=== PATIENT | female | born 1950 | race Caucasian/White ===

== ENCOUNTER 2019-12-10 22:59 | Emergency (ER) | payer MEDICARE, SELFPAY ==
[2019-12-10 23:01] VITALS: BP 157/79; PULSE 117; RESP 22; TEMP 39.4; O2SAT 90; BMI 43.0
--- NOTE | 2019-12-10 23:03 | XR_ITS ---
WS: [id number] PORTABLE CHEST HISTORY: weakness COMPARISON: None available. Mild elevation of the RIGHT hemidiaphragm. No pneumonia. Vasculature is normal. No pleural effusion o r pneumothorax. Cardiac size: Mildly enlarged cardiac silhouette. Mediastinum/Aorta: Normal mediastinum. No osseous abnormality seen. XR/XR chest 1V portable [id number] IMPRESSION: 1. No pneumonia. 2. Mild cardiomegaly.
--- NOTE | 2019-12-10 23:19 | ED_ITS ---
Documented by User: SHELBY Rees 12/11/19 03:39 HPI - Fever General: Chief Complaint: Fever Stated Complaint: WEAKNESS Time Seen by Provider: 12/10/19 23:03 History of Present Illness: HPI Narrative: Patient is a 68-year-old female comes to the ED with a fever, weakness, nausea and vomiting. Patient has a past medical history of asthma, hypertension and diabetes type 2. Patient says approximately 4 days ago she started developing a fever. She has been taking Tylenol at home to help with fevers. Patient reports overnight nonproductive cough as well. She says that she is also had some nausea and vomiting for the past couple days and has not been able to eat much food. She says she is trying to drink some water over the past couple days but has a hard time keeping that down as well. She is also complaining of having some weakness for the past couple days. She describes feeling weak every time she has to get up and do any activity. Endorses having diarrhea yesterday but it has since resolved. Denies any chest pain, shortness of breath, abdominal pain, constipation, blood in the stool, dysuria or hematuria. Patient says she is not aware of any sick contacts recently. She also says she does not use oxygen at home. Associated symptoms: Reports nausea and vomiting; Deny abdominal pain, flank pain, chills, chest pain, diarrhea, dysuria, headache(s) or nasal congestion Review of Systems Const: Reports: fever(s), change in appetite (decrease) and fatigue; Denies: chills Eyes: Denies: change in vision or eye discomfort ENMT: Denies: throat pain, odynophagia, nasal discharge or nasal congestion Card: Denies: chest pain, palpitations, edema, swelling of feet/ankles, dyspnea on exertion or orthopnea Resp: Reports: non-productive cough; Denies: dyspnea or productive cough GI: Reports: nausea and vomiting; Denies: abdominal pain, diarrhea, constipation or hematochezia : Denies: flank pain, dysuria or hematuria Musc: Denies: neck pain, back pain or extremity swelling Skin/Breast: Denies: rash or new lesions Neuro: Denies: headache(s), numbness in extremities or weakness in extremities Physical Exam Const: COMMON NORMALS: no acute distress, patient oriented x3 and alert GENERAL APPEARANCE: cooperative and comfortable HENMT: COMMON NORMALS: normocephalic HEAD & SCALP: normocephalic MOUTH: moist mucous membranes abnormal (mild dryness) THROAT: posterior oropharynx normal and uvula midline Eye: COMMON NORMALS: Equal, round and reactive pupils present PUPIL: Yes Equal, round and reactive pupils present Neck/C-Spine: COMMON NORMALS: supple GENERAL: Yes normal visual inspection Resp: COMMON NORMALS: normal respiratory effort, No retractions and No use of accessory muscles EFFORT & INSPECTION: Yes able to speak in complete sentences and Yes Actively coughing moist AUSCULTATION: crackles Laterality: bilateral (At the bases) Cardio: COMMON NORMALS: regular rhythm, S1 normal heart sound present, S2 normal heart sound present, No gallops present (Cardio), No clicks present (Cardio), No murmurs present (Cardio) and Peripheral pulses 2+ throughout RATE: tachycardic RHYTHM: regular rhythm HEART SOUNDS: S1 normal heart sound present and S2 normal heart sound present PERIPHERAL PULSES: Peripheral pulses 2+ throughout GI: COMMON NORMALS: Normal to inspection, nondistended, normoactive bowel sounds present, Soft to palpation, non-tender and no masses PALPATION: Yes Soft to palpation : COMMON NORMALS: Yes no CVA tenderness BLADDER/KIDNEY EXAM: Yes no CVA tenderness Back/Pelvis: COMMON NORMALS: no CVA tenderness Extremity: COMMON NORMALS: normal to inspection and no pedal edema Neuro: COMMON NORMALS: patient oriented x3, CN's II-XII intact bilaterally, moves all extremities, no focal motor deficits and no sensory deficits noted SENSORIUM/ORIENTATION: Yes alert SENSORY EXAM: Yes extremities (intact) MOTOR EXAM: 5/5 motor strength present throughout Skin: GENERAL SKIN EXAM: dry skin Course Vital Signs: Vital signs: Vital Signs Temperature 102.9 F H 12/10/19 23:01 Pulse Rate 84 12/11/19 04:26 Respiratory Rate 16 12/11/19 04:26 Blood Pressure 109/57 12/11/19 04:26 Pulse Oximetry 94 12/11/19 04:26 I went in and checked patient's temperature around 1:45 AM. Oral temp was 99 ?F. MDM - Fever MDM Narrative: Medical decision making narrative: Patient is a 68-year-old female comes to the ED with fever, cough, nausea/vomiting and generalized weakness. Patient has a past medical history of diabetes, asthma and hypertension. Patient's temperature was 102.9 upon arrival to the ED. She was given some IV fluids, Zofran and 600 mg of Motrin. Her symptoms improved and her temperature went down to 99 ?F. White blood cell count 12.9. The rest of CBC, CMP and UA were unremarkable. Rapid COVID was negative. EKG showed sinus rhythm with no ST segment elevation or depression seen and baseline troponin was 10. Lactate 1.0 , BNP 194. Chest x-ray showed no acute findings. Patient was stating in the low 90s O2 RA, so she was put on 2 L of oxygen nasal cannula. Patient does not use oxygen at home. I talked with Dr. Molina about patient case and CT of the chest was ordered. Dr. Molina will then be taking over patient case and will be handling discharge plan pending CT chest results. Patient was signed out to Dr. Molina. Lab Data: Attestation: I reviewed the patient's lab results. Labs: Lab Results 12/11/19 12/11/19 12/11/19 Range/Units 00:14 00:30 00:30 WBC 12.9 H (4.0-10.0) 10^3/ uL RBC 4.46 (4.1-5.3) 10^6/u L Hgb 13.1 (11.5-15.3) g/dL Hct 40.3 (37.0-47.0) % MCV 90.4 (81-99) fL MCH 29.4 (28.0-34.0) pg MCHC 32.5 (30.0-36.0) g/dL RDW 13.3 (12.1-15.1) % Plt Count 290 (130-400) 10^3/c mm MPV 10.4 (7.4-10.4) fL Neut % (Auto) 63.0 % Lymph % (Auto) 20.4 % [place] % (Auto) 13.9 % Eos % (Auto) 0.5 % Baso % (Auto) 1.1 % Neut # (Auto) 8.12 H (1.8-7.7) 10^3/u L Lymph # (Auto) 2.6 (0.8-4.8) 10^3/u L [place] # (Auto) 1.8 H (0.2-0.9) 10^3/u L Eos # (Auto) 0.1 (0.0-0.8) 10^3/u L Baso # (Auto) 0.1 (0.0-0.1) 10^3/u L Nucleated RBC % (a uto) 0 % Nucleated RBCs # 0.0 /100WBC Fibrinogen (174-498) mg/dL Sodium 140 (136-145) mmol/L Potassium 3.5 (3.5-5.1) mmol/L Chloride 99 (98-107) mmol/L Carbon Dioxide 28 (22-29) mmol/L Anion Gap 16.5 (5-19) BUN 11 (8-23) mg/dL Creatinine 0.9 (0.5-0.9) mg/dL GFR Calculation 61.9 L (90-130) mL/min Glucose 188 H (65-115) mg/dL Calculated Osmolal ity 291 (285-295) mOsm/k g Lactate (0.5-2.2) mmol/L Calcium 8.6 (8.5-10.5) mg/dL Ferritin 150 (15-150) ng/mL Total Bilirubin 0.3 (0.15-1.2) mg/dL AST 16 (0-32) U/L ALT 21 (0-33) U/L Alkaline Phosphata se 138 H (35-105) IU/L Troponin T Baselin e (0-10) ng/L Troponin T 120 Min [place] (0-10) ng/L Delta Troponin T (0-10) ABS# NT-Pro-B Natriuret Pep 194 H (0-125) pg/mL Total Protein 6.6 (6.6-8.7) g/dL Albumin 3.8 (3.5-5.2) g/dL Globulin 2.8 (1.3-4.6) g/dL Urine Color (Yellow) Urine Appearance (CLEAR) Urine pH (5-7) Ur Specific Gravit y (1.005-1.030) Urine Protein (Negative) Urine Glucose (UA) (Normal) Urine Ketones (Negative) Urine Blood (Negative) Urine Nitrate (Negative) Urine Bilirubin (NEGATIVE) Urine Urobilinogen (Negative) mg/dL Ur Leukocyte Aby ase (Negative) SARS-CoV-2 Ag (Rap id) Negative (Negative) 12/11/19 12/11/19 12/11/19 Range/Units 00:30 00:30 00:30 WBC (4.0-10.0) 10^3/ uL RBC (4.1-5.3) 10^6/u L Hgb (11.5-15.3) g/dL Hct (37.0-47.0) % MCV (81-99) fL MCH (28.0-34.0) pg MCHC (30.0-36.0) g/dL RDW (12.1-15.1) % Plt Count (130-400) 10^3/c mm MPV (7.4-10.4) fL Neut % (Auto) % Lymph % (Auto) % [place] % (Auto) % Eos % (Auto) % Baso % (Auto) % Neut # (Auto) (1.8-7.7) 10^3/u L Lymph # (Auto) (0.8-4.8) 10^3/u L [place] # (Auto) (0.2-0.9) 10^3/u L Eos # (Auto) (0.0-0.8) 10^3/u L Baso # (Auto) (0.0-0.1) 10^3/u L Nucleated RBC % (a uto) % Nucleated RBCs # /100WBC Fibrinogen 677 H (174-498) mg/dL Sodium (136-145) mmol/L Potassium (3.5-5.1) mmol/L Chloride (98-107) mmol/L Carbon Dioxide (22-29) mmol/L Anion Gap (5-19) BUN (8-23) mg/dL Creatinine (0.5-0.9) mg/dL GFR Calculation (90-130) mL/min Glucose (65-115) mg/dL Calculated Osmolal ity (285-295) mOsm/k g Lactate 1.0 (0.5-2.2) mmol/L Calcium (8.5-10.5) mg/dL Ferritin (15-150) ng/mL Total Bilirubin (0.15-1.2) mg/dL AST (0-32) U/L ALT (0-33) U/L Alkaline Phosphata se (35-105) IU/L Troponin T Baselin e 10 (0-10) ng/L Troponin T 120 Min [place] (0-10) ng/L Delta Troponin T (0-10) ABS# NT-Pro-B Natriuret Pep (0-125) pg/mL Total Protein (6.6-8.7) g/dL Albumin (3.5-5.2) g/dL Globulin (1.3-4.6) g/dL Urine Color (Yellow) Urine Appearance (CLEAR) Urine pH (5-7) Ur Specific Gravit y (1.005-1.030) Urine Protein (Negative) Urine Glucose (UA) (Normal) Urine Ketones (Negative) Urine Blood (Negative) Urine Nitrate (Negative) Urine Bilirubin (NEGATIVE) Urine Urobilinogen (Negative) mg/dL Ur Leukocyte Aby ase (Negative) SARS-CoV-2 Ag (Rap id) (Negative) 12/11/19 12/11/19 Range/Units 02:18 03:28 WBC (4.0-10.0) 10^3/ uL RBC (4.1-5.3) 10^6/u L Hgb (11.5-15.3) g/dL Hct (37.0-47.0) % MCV (81-99) fL MCH (28.0-34.0) pg MCHC (30.0-36.0) g/dL RDW (12.1-15.1) % Plt Count (130-400) 10^3/c mm MPV (7.4-10.4) fL Neut % (Auto) % Lymph % (Auto) % [place] % (Auto) % Eos % (Auto) % Baso % (Auto) % Neut # (Auto) (1.8-7.7) 10^3/u L Lymph # (Auto) (0.8-4.8) 10^3/u L [place] # (Auto) (0.2-0.9) 10^3/u L Eos # (Auto) (0.0-0.8) 10^3/u L Baso # (Auto) (0.0-0.1) 10^3/u L Nucleated RBC % (a uto) % Nucleated RBCs # /100WBC Fibrinogen (174-498) mg/dL Sodium (136-145) mmol/L Potassium (3.5-5.1) mmol/L Chloride (98-107) mmol/L Carbon Dioxide (22-29) mmol/L Anion Gap (5-19) BUN (8-23) mg/dL Creatinine (0.5-0.9) mg/dL GFR Calculation (90-130) mL/min Glucose (65-115) mg/dL Calculated Osmolal ity (285-295) mOsm/k g Lactate (0.5-2.2) mmol/L Calcium (8.5-10.5) mg/dL Ferritin (15-150) ng/mL Total Bilirubin (0.15-1.2) mg/dL AST (0-32) U/L ALT (0-33) U/L Alkaline Phosphata se (35-105) IU/L Troponin T Baselin e (0-10) ng/L Troponin T 120 Min [place] 12.94 H (0-10) ng/L Delta Troponin T 2.94 (0-10) ABS# NT-Pro-B Natriuret Pep (0-125) pg/mL Total Protein (6.6-8.7) g/dL Albumin (3.5-5.2) g/dL Globulin (1.3-4.6) g/dL Urine Color Yellow (Yellow) Urine Appearance Clear (CLEAR) Urine pH 6 (5-7) Ur Specific Gravit y 1.015 (1.005-1.030) Urine Protein Neg (Negative) Urine Glucose (UA) Norm (Normal) Urine Ketones Negative (Negative) Urine Blood Neg (Negative) Urine Nitrate Negative (Negative) Urine Bilirubin Neg (NEGATIVE) Urine Urobilinogen Norm (Negative) mg/dL Ur Leukocyte Aby ase Negative (Negative) SARS-CoV-2 Ag (Rap id) (Negative) Imaging Data^: CXR: Attestation: I personally reviewed and interpreted this imaging study as follows: My impression: No acute findings. EKG Data^: EKG 1: Attestation: I personally reviewed and interpreted this EKG as follows: EKG interpretation date: 12/11/19 Interpretation: Sinus rhythm, 99 bpm, no ST segment elevation or depression seen. Discharge Plan Discharge Patient Disposition: Home Clinical Impression: Fever of unknown origin Cyst, ovarian Qualifiers: Laterality: right Qualified Code(s): N83.201 - Unspecified ovarian cyst, right side Condition: Stable Prescriptions: New Keflex 500 mg capsule 500 mg PO Q6H 7 Days Qty: 28 RF: 0 Discharge Orders: Discharge Order (Routine); Ordered 12/11/19 Ordered By: Sabi Molina Referrals: Marvin Neff MD [Physician] - 1-3 days Discharge Diet: Advance as tolerated Discharge Activity: Resume usual activity Patient Instructions: Ovarian Cyst (ED), Fever in Adults (ED) Discharge Date/Time: 12/11/19 04:29 Coding Level of Care Code ED Drawing In Hand for Chg Fwd Exam Comprehensive Documented by User: Sabi Molina MD 12/11/19 04:32 HPI - Fever General: Chief Complaint: Fever Stated Complaint: WEAKNESS Time Seen by Provider: 12/10/19 23:03 Course Vital Signs: Vital signs: Vital Signs Temperature 102.9 F H 12/10/19 23:01 Pulse Rate 84 12/11/19 04:26 Respiratory Rate 16 12/11/19 04:26 Blood Pressure 109/57 12/11/19 04:26 Pulse Oximetry 94 12/11/19 04:26 MDM - Fever MDM Narrative: Medical decision making narrative: Patient presents here with abdominal pain along with fever and cough. Patient CT scan showed no signs of pneumonia. Patient's COVID test is negative and her lab work here is normal. Patient feels much improved here and is oxygenation saturation is 94% on room air when is in her room. I had a long discussion with her and she states she would like to go home. I feel she is stable for discharge at this point. We will place her on Keflex and she is to follow-up with her PCP in 1 to 2 days. I informed her of the ovarian cyst noted on the CT scan and she is to follow-up with Dr. Neff for that. Patient has no signs of ovarian torsion. Her pain is minimal at this time. She is to return to ER if she worsens. She understands and agrees to this plan. Lab Data: Labs: Lab Results 12/11/19 12/11/19 12/11/19 Range/Units 00:14 00:30 00:30 WBC 12.9 H (4.0-10.0) 10^3/ uL RBC 4.46 (4.1-5.3) 10^6/u L Hgb 13.1 (11.5-15.3) g/dL Hct 40.3 (37.0-47.0) % MCV 90.4 (81-99) fL MCH 29.4 (28.0-34.0) pg MCHC 32.5 (30.0-36.0) g/dL RDW 13.3 (12.1-15.1) % Plt Count 290 (130-400) 10^3/c mm MPV 10.4 (7.4-10.4) fL Neut % (Auto) 63.0 % Lymph % (Auto) 20.4 % [place] % (Auto) 13.9 % Eos % (Auto) 0.5 % Baso % (Auto) 1.1 % Neut # (Auto) 8.12 H (1.8-7.7) 10^3/u L Lymph # (Auto) 2.6 (0.8-4.8) 10^3/u L [place] # (Auto) 1.8 H (0.2-0.9) 10^3/u L Eos # (Auto) 0.1 (0.0-0.8) 10^3/u L Baso # (Auto) 0.1 (0.0-0.1) 10^3/u L Nucleated RBC % (a uto) 0 % Nucleated RBCs # 0.0 /100WBC Fibrinogen (174-498) mg/dL Sodium 140 (136-145) mmol/L Potassium 3.5 (3.5-5.1) mmol/L Chloride 99 (98-107) mmol/L Carbon Dioxide 28 (22-29) mmol/L Anion Gap 16.5 (5-19) BUN 11 (8-23) mg/dL Creatinine 0.9 (0.5-0.9) mg/dL GFR Calculation 61.9 L (90-130) mL/min Glucose 188 H (65-115) mg/dL Calculated Osmolal ity 291 (285-295) mOsm/k g Lactate (0.5-2.2) mmol/L Calcium 8.6 (8.5-10.5) mg/dL Ferritin 150 (15-150) ng/mL Total Bilirubin 0.3 (0.15-1.2) mg/dL AST 16 (0-32) U/L ALT 21 (0-33) U/L Alkaline Phosphata se 138 H (35-105) IU/L Troponin T Baselin e (0-10) ng/L Troponin T 120 Min [place] (0-10) ng/L Delta Troponin T (0-10) ABS# NT-Pro-B Natriuret Pep 194 H (0-125) pg/mL Total Protein 6.6 (6.6-8.7) g/dL Albumin 3.8 (3.5-5.2) g/dL Globulin 2.8 (1.3-4.6) g/dL Urine Color (Yellow) Urine Appearance (CLEAR) Urine pH (5-7) Ur Specific Gravit y (1.005-1.030) Urine Protein (Negative) Urine Glucose (UA) (Normal) Urine Ketones (Negative) Urine Blood (Negative) Urine Nitrate (Negative) Urine Bilirubin (NEGATIVE) Urine Urobilinogen (Negative) mg/dL Ur Leukocyte Aby ase (Negative) SARS-CoV-2 Ag (Rap id) Negative (Negative) 12/11/19 12/11/19 12/11/19 Range/Units 00:30 00:30 00:30 WBC (4.0-10.0) 10^3/ uL RBC (4.1-5.3) 10^6/u L Hgb (11.5-15.3) g/dL Hct (37.0-47.0) % MCV (81-99) fL MCH (28.0-34.0) pg MCHC (30.0-36.0) g/dL RDW (12.1-15.1) % Plt Count (130-400) 10^3/c mm MPV (7.4-10.4) fL Neut % (Auto) % Lymph % (Auto) % [place] % (Auto) % Eos % (Auto) % Baso % (Auto) % Neut # (Auto) (1.8-7.7) 10^3/u L Lymph # (Auto) (0.8-4.8) 10^3/u L [place] # (Auto) (0.2-0.9) 10^3/u L Eos # (Auto) (0.0-0.8) 10^3/u L Baso # (Auto) (0.0-0.1) 10^3/u L Nucleated RBC % (a uto) % Nucleated RBCs # /100WBC Fibrinogen 677 H (174-498) mg/dL Sodium (136-145) mmol/L Potassium (3.5-5.1) mmol/L Chloride (98-107) mmol/L Carbon Dioxide (22-29) mmol/L Anion Gap (5-19) BUN (8-23) mg/dL Creatinine (0.5-0.9) mg/dL GFR Calculation (90-130) mL/min Glucose (65-115) mg/dL Calculated Osmolal ity (285-295) mOsm/k g Lactate 1.0 (0.5-2.2) mmol/L Calcium (8.5-10.5) mg/dL Ferritin (15-150) ng/mL Total Bilirubin (0.15-1.2) mg/dL AST (0-32) U/L ALT (0-33) U/L Alkaline Phosphata se (35-105) IU/L Troponin T Baselin e 10 (0-10) ng/L Troponin T 120 Min [place] (0-10) ng/L Delta Troponin T (0-10) ABS# NT-Pro-B Natriuret Pep (0-125) pg/mL Total Protein (6.6-8.7) g/dL Albumin (3.5-5.2) g/dL Globulin (1.3-4.6) g/dL Urine Color (Yellow) Urine Appearance (CLEAR) Urine pH (5-7) Ur Specific Gravit y (1.005-1.030) Urine Protein (Negative) Urine Glucose (UA) (Normal) Urine Ketones (Negative) Urine Blood (Negative) Urine Nitrate (Negative) Urine Bilirubin (NEGATIVE) Urine Urobilinogen (Negative) mg/dL Ur Leukocyte Aby ase (Negative) SARS-CoV-2 Ag (Rap id) (Negative) 12/11/19 12/11/19 Range/Units 02:18 03:28 WBC (4.0-10.0) 10^3/ uL RBC (4.1-5.3) 10^6/u L Hgb (11.5-15.3) g/dL Hct (37.0-47.0) % MCV (81-99) fL MCH (28.0-34.0) pg MCHC (30.0-36.0) g/dL RDW (12.1-15.1) % Plt Count (130-400) 10^3/c mm MPV (7.4-10.4) fL Neut % (Auto) % Lymph % (Auto) % [place] % (Auto) % Eos % (Auto) % Baso % (Auto) % Neut # (Auto) (1.8-7.7) 10^3/u L Lymph # (Auto) (0.8-4.8) 10^3/u L [place] # (Auto) (0.2-0.9) 10^3/u L Eos # (Auto) (0.0-0.8) 10^3/u L Baso # (Auto) (0.0-0.1) 10^3/u L Nucleated RBC % (a uto) % Nucleated RBCs # /100WBC Fibrinogen (174-498) mg/dL Sodium (136-145) mmol/L Potassium (3.5-5.1) mmol/L Chloride (98-107) mmol/L Carbon Dioxide (22-29) mmol/L Anion Gap (5-19) BUN (8-23) mg/dL Creatinine (0.5-0.9) mg/dL GFR Calculation (90-130) mL/min Glucose (65-115) mg/dL Calculated Osmolal ity (285-295) mOsm/k g Lactate (0.5-2.2) mmol/L Calcium (8.5-10.5) mg/dL Ferritin (15-150) ng/mL Total Bilirubin (0.15-1.2) mg/dL AST (0-32) U/L ALT (0-33) U/L Alkaline Phosphata se (35-105) IU/L Troponin T Baselin e (0-10) ng/L Troponin T 120 Min [place] 12.94 H (0-10) ng/L Delta Troponin T 2.94 (0-10) ABS# NT-Pro-B Natriuret Pep (0-125) pg/mL Total Protein (6.6-8.7) g/dL Albumin (3.5-5.2) g/dL Globulin (1.3-4.6) g/dL Urine Color Yellow (Yellow) Urine Appearance Clear (CLEAR) Urine pH 6 (5-7) Ur Specific Gravit y 1.015 (1.005-1.030) Urine Protein Neg (Negative) Urine Glucose (UA) Norm (Normal) Urine Ketones Negative (Negative) Urine Blood Neg (Negative) Urine Nitrate Negative (Negative) Urine Bilirubin Neg (NEGATIVE) Urine Urobilinogen Norm (Negative) mg/dL Ur Leukocyte Aby ase Negative (Negative) SARS-CoV-2 Ag (Rap id) (Negative) Imaging Data^: CT Chest: Radiologist's impression: [place] [address] CT Scan Report Signed Patient: MAKAYLA MARROQUIN Unit #: [id number] : 1950 Age/Sex: 68 / F ADM Date: 12/10/19 Loc: ER Room/Bed: Attending Dr: Ordering Provider/Ordering MD: Severo Adams Date of Service: 12/11/19 Procedure(s): CT chest abd pel w con* Accession Number(s): [id number] Report Number: [id number] PROCEDURE INFORMATION: Exam: CT Chest With Contrast Exam date and time: 12/11/2019 2:20 AM Age: 68 years old Clinical indication: Nausea and vomiting; Cough; Prior surgery; Additional info: Cough and low o2 TECHNIQUE: Imaging protocol: Computed tomography of the chest with intravenous contrast. Radiation optimization: All CT scans at this facility use at least one of these dose optimization techniques: automated exposure control; mA and/or kV adjustment per patient size (includes targeted exams where dose is matched to clinical indication); or iterative reconstruction. Contrast material: OMNI 300; Contrast volume: 95 ml; Contrast route: INTRAVENOUS (IV); COMPARISON: No relevant prior studies available. RADIATION DOSE METRICS: Total DLP (mGy-cm): 2704.25 FINDINGS: Lungs: Unremarkable. No consolidation. No masses. Pleural space: Unremarkable. No pneumothorax. No pleural effusion. Heart: Unremarkable. No cardiomegaly. No pericardial effusion. Aorta: Calcifications are seen within the thoracic aorta. Lymph nodes: Calcified left hilar lymph nodes are seen. Bones/joints: Unremarkable. No acute fracture. Soft tissues: Unremarkable. Other findings: A calcified granuloma seen in the left posterior hemithorax. IMPRESSION: 1. There are no acute chest findings. 2. Calcified left hilar lymph nodes and calcified granuloma seen in the left posterior hemithorax. PROCEDURE INFORMATION: Exam: CT Abdomen And Pelvis With Contrast Exam date and time: 12/11/2019 2:20 AM Age: 68 years old Clinical indication: Nausea and vomiting; Cough; Prior surgery; Additional info: Cough and low o2 TECHNIQUE: Imaging protocol: Computed tomography of the abdomen and pelvis with intravenous contrast. Radiation optimization: All CT scans at this facility use at least one of these dose optimization techniques: automated exposure control; mA and/or kV adjustment per patient size (includes targeted exams where dose is matched to clinical indication); or iterative reconstruction. Contrast material: OMNI 300; Contrast volume: 95 ml; Contrast route: INTRAVENOUS (IV); COMPARISON: No relevant prior studies available. RADIATION DOSE METRICS: Total DLP (mGy-cm): 2704.25 FINDINGS: Liver: Normal. No mass. Gallbladder and bile ducts: Some subtle hypoattenuation material is seen within the gallbladder neck possibly representing some gallbladder sludge. Pancreas: Normal. No ductal dilation. Spleen: Normal. No splenomegaly. Adrenals: Normal. No mass. Kidneys and ureters: Normal. No hydronephrosis. Stomach and bowel: Postoperative changes are seen within the fat and fascia adjacent to the rectum. Appendix: No evidence of appendicitis. Intraperitoneal space: A well-circumscribed hypoattenuation 1.7 cm cyst is seen adjacent to the falciform fissure. Vasculature: Unremarkable. No abdominal aortic aneurysm. Lymph nodes: Unremarkable. No enlarged lymph nodes. Bladder: Unremarkable as visualized. Reproductive: There is a complex cystic mass seen associated with the right ovary measuring 4.5 x 4.6 x 5.0 cm. Although this may represent benign mucinous or serous cystadenoma, cystadenocarcinoma cannot be excluded. Bones/joints: Unremarkable. No acute fracture. Soft tissues: There is a midline anterior abdominal wall hernia present in the epigastrium containing fat. An umbilical hernia ts present containing fat. CT/CT chest abd pel w con* IMPRESSION: 1. Abnormal complex cystic mass present within the right ovary measuring 4.5 x 4.6 x 5.0 cm. Follow-up evaluation with pelvic sonography is suggested initially. 2. The benign appearing 1.7 cm hepatic cyst adjacent to the falciform fissure measuring 1.7 cm. No further workup needed. 3. Subtle intraluminal hypoattenuation material seen adjacent to the gallbladder neck possibly representing some gallbladder sludge. 4. Umbilical hernia containing fat. Midline anterior abdominal wall hernia in the epigastrium containing fat. Discharge Plan Discharge Patient Disposition: Home Clinical Impression: Fever of unknown origin Cyst, ovarian Qualifiers: Laterality: right Qualified Code(s): N83.201 - Unspecified ovarian cyst, right side Condition: Stable Prescriptions: New Keflex 500 mg capsule 500 mg PO Q6H 7 Days Qty: 28 RF: 0 Discharge Orders: Discharge Order (Routine); Ordered 12/11/19 Ordered By: Sabi Molina Referrals: Marvin Neff MD [Physician] - 1-3 days Discharge Diet: Advance as tolerated Discharge Activity: Resume usual activity Patient Instructions: Ovarian Cyst (ED), Fever in Adults (ED) Discharge Date/Time: 12/11/19 04:29 Coding Level of Care Code ED Drawing In Hand for Chg Fwd Exam Comprehensive
[2019-12-11] MEDS: ibuprofen 600 mg Tablet PO (00:15)
[2019-12-11] MEDS: ondansetron 2 mg/ML SDV 2 mL 4 MG IVP (00:15)
[2019-12-11 00:57] LABS: Basophils # 0.1 10^3/uL (0.0-0.1); Basophils % 1.1 %; Eosinophils # 0.1 10^3/uL (0.0-0.8); Eosinophils % 0.5 %; Hematocrit 40.3 % (37.0-47.0); Hemoglobin 13.1 g/dL (11.5-15.3); Lymphocytes # 2.6 10^3/uL (0.8-4.8); Lymphocytes % 20.4 %; Mean Corpuscular HGB Conc 32.5 g/dL (30.0-36.0); Mean Corpuscular Hemoglobin 29.4 pg (28.0-34.0); Mean Corpuscular Volume 90.4 fL (81-99); Mean Platelet Volume 10.4 fL (7.4-10.4); Monocytes # 1.8 10^3/uL (0.2-0.9); Monocytes % 13.9 %; Neutrophils # 8.12 10^3/uL (1.8-7.7); Nucleated Red Blood Cells % 0 %; Platelet Count 290 10^3/cmm (130-400); Red Blood Count 4.46 10^6/uL (4.1-5.3); Red Cell Distribution Width 13.3 % (12.1-15.1); White Blood Count 12.9 10^3/uL (4.0-10.0)
[2019-12-11 01:02] LABS: Fibrinogen 677 mg/dL (174-498)
--- NOTE | 2019-12-11 01:04 | ECG_ITS ---
[facility] Test Date: 2019-12-11 Pat Name: MAKAYLA MARROQUIN Department: Room: Gender: Female [employer]: : [id number] Requested By: Severo dAams Order Number: [id number] Ramirez MD: Tony Zapata M.D. Measurements Intervals [place] Rate: 99 P: 73 IA: 149 QRS: 63 QRSD: 85 T: 60 QT: 360 QTc: 463 Interpretive Statements SINUS RHYTHM POSSIBLE RIGHT VENTRICULAR CONDUCTION DELAY [RSR (QR) IN V1/V2] NONSPECIFIC T-WAVE ABNORMALITY No previous ECG available for comparison Electronically Signed On 12-11-2019 21:14:52 CDT by Tony Zapata M.D. [id number]
[2019-12-11 01:08] LABS: Troponin(5th) Baseline 10 ng/L (0-10)
[2019-12-11 01:17] LABS: Alanine Aminotransferase 21 U/L (0-33); Albumin Level 3.8 g/dL (3.5-5.2); Alkaline Phosphatase 138 IU/L (35-105); Anion Gap 16.5 (5-19); Aspartate Amino Transferase 16 U/L (0-32); Blood Urea Nitrogen 11 mg/dL (8-23); Calcium 8.6 mg/dL (8.5-10.5); Carbon Dioxide 28 mmol/L (22-29); Chloride 99 mmol/L (98-107); Globulin 2.8 g/dL (1.3-4.6); Glomerular Filtration Rate 61.9 mL/min (90-130); Glucose 188 mg/dL (65-115); NT Pro B Type Natriuretic Pept 194 pg/mL (0-125); Osmolality Calculated 291 mOsm/kg (285-295); Potassium 3.5 mmol/L (3.5-5.1); Sodium 140 mmol/L (136-145); Total Bilirubin 0.3 mg/dL (0.15-1.2); Total Protein 6.6 g/dL (6.6-8.7)
[2019-12-11 01:20] LABS: SARS Covid-2 Antigen Negative (Negative)
[2019-12-11 01:31] LABS: Ferritin 150 ng/mL (15-150)
--- NOTE | 2019-12-11 01:42 | CTR_ITS ---
PROCEDURE INFORMATION: Exam: CT Chest With Contrast Exam date and time: 12/11/2019 2:20 AM Age: 68 years old Clinical indication: Nausea and vomiting; Cough; Prior surgery; Additional info: Cough and low o2 TECHNIQUE: Imaging protocol: Computed tomography of the chest with intravenous contrast. Radiation optimization: All CT scans at this facility use at least one of these dose optimization techniques: automated exposure control; mA and/or kV adjustment per patient size (includes targeted exams where dose is matched to clinical indication); or iterative reconstruction. Contrast material: OMNI 300; Contrast volume: 95 ml; Contrast route: INTRAVENOUS (IV); COMPARISON: No relevant prior studies available. RADIATION DOSE METRICS: Total DLP (mGy-cm): 2704.25 FINDINGS: Lungs: Unremarkable. No consolidation. No masses. Pleural space: Unremarkable. No pneumothorax. No pleural effusion. Heart: Unremarkable. No cardiomegaly. No pericardial effusion. Aorta: Calcifications are seen within the thoracic aorta. Lymph nodes: Calcified left hilar lymph nodes are seen. Bones/joints: Unremarkable. No acute fracture. Soft tissues: Unremarkable. Other findings: A calcified granuloma seen in the left posterior hemithorax. IMPRESSION: 1. There are no acute chest findings. 2. Calcified left hilar lymph nodes and calcified granuloma seen in the left posterior hemithorax. PROCEDURE INFORMATION: Exam: CT Abdomen And Pelvis With Contrast Exam date and time: 12/11/2019 2:20 AM Age: 68 years old Clinical indication: Nausea and vomiting; Cough; Prior surgery; Additional info: Cough and low o2 TECHNIQUE: Imaging protocol: Computed tomography of the abdomen and pelvis with intravenous contrast. Radiation optimization: All CT scans at this facility use at least one of these dose optimization techniques: automated exposure control; mA and/or kV adjustment per patient size (includes targeted exams where dose is matched to clinical indication); or iterative reconstruction. Contrast material: OMNI 300; Contrast volume: 95 ml; Contrast route: INTRAVENOUS (IV); COMPARISON: No relevant prior studies available. RADIATION DOSE METRICS: Total DLP (mGy-cm): 2704.25 FINDINGS: Liver: Normal. No mass. Gallbladder and bile ducts: Some subtle hypoattenuation material is seen within the gallbladder neck possibly representing some gallbladder sludge. Pancreas: Normal. No ductal dilation. Spleen: Normal. No splenomegaly. Adrenals: Normal. No mass. Kidneys and ureters: Normal. No hydronephrosis. Stomach and bowel: Postoperative changes are seen within the fat and fascia adjacent to the rectum. Appendix: No evidence of appendicitis. Intraperitoneal space: A well-circumscribed hypoattenuation 1.7 cm cyst is seen adjacent to the falciform fissure. Vasculature: Unremarkable. No abdominal aortic aneurysm. Lymph nodes: Unremarkable. No enlarged lymph nodes. Bladder: Unremarkable as visualized. Reproductive: There is a complex cystic mass seen associated with the right ovary measuring 4.5 x 4.6 x 5.0 cm. Although this may represent benign mucinous or serous cystadenoma, cystadenocarcinoma cannot be excluded. Bones/joints: Unremarkable. No acute fracture. Soft tissues: There is a midline anterior abdominal wall hernia present in the epigastrium containing fat. An umbilical hernia ts present containing fat. CT/CT chest abd pel w con* IMPRESSION: 1. Abnormal complex cystic mass present within the right ovary measuring 4.5 x 4.6 x 5.0 cm. Follow-up evaluation with pelvic sonography is suggested initially. 2. The benign appearing 1.7 cm hepatic cyst adjacent to the falciform fissure measuring 1.7 cm. No further workup needed. 3. Subtle intraluminal hypoattenuation material seen adjacent to the gallbladder neck possibly representing some gallbladder sludge. 4. Umbilical hernia containing fat. Midline anterior abdominal wall hernia in the epigastrium containing fat. Radiation Dose CTDIVOL = (mGy): DLP = 2704.25~2704.25 (mGy-cm)
[2019-12-11 02:24] LABS: Add Urine Microscopic? NO
[2019-12-11 02:26] LABS: Bilirubin Urine Neg (NEGATIVE); Blood Urine Neg (Negative); Glucose Urine UA Norm (Normal); Ketones Urine Negative (Negative); Leukocyte Esterase Urine Negative (Negative); Nitrate Urine Negative (Negative); Protein Urine Neg (Negative); Specific Gravity, Urine 1.015 (1.005-1.030); Urine Appearance Clear (CLEAR); Urine Color Yellow (Yellow); Urobilinogen Urine Norm (Negative); pH Urine 6 (5-7)
[2019-12-11] MEDS: iohexol 300 mg/mL 100 mL Btl IV (02:41)
[2019-12-11 04:01] LABS: Troponin 5 2HR 12.94 ng/L (0-10); Troponin 5 2HR Delta 2.94 ABS# (0-10)
[2019-12-11 04:26] VITALS: BP 109/57; PULSE 84; RESP 16; O2SAT 94
--- NOTE | 2019-12-11 10:27 | DCPLANNER ---
wastewater project manager had message to schedule a follow up appointment for patient with [facility]. wastewater project manager called the [facility] clinic, spoke with Divya, gave clinic patients information. Patient does not have a phone number listed in chart for case resource manager or clinic to call with appointment information. wastewater project manager did send patient a letter requesting that patient contact case resource manager or [facility] for appointment information.
--- NOTE | 2019-12-12 03:02 | PC.NURSE ---
lab called with Gram positive cocci in blood cultures, notified
== END 2019-12-11 04:29 | disposition home or self-care (01) ==
PROVIDERS: Physician Assistant; Emergency Provider Emergency Medicine
DX: R50.9 Fever, unspecified (principal); N83.201 Unspecified ovarian cyst, right side; R11.10 Vomiting, unspecified
CPT/HCPCS: 12345; 71045; 71260; 74177; 80053; 81003; 82728; 83605; 83880; 84484; 85025; 85384; 87040; 87086; 87205; 87426; 93005; 96361; 96374; 96375; 99281; 99284; J2405; Q9967

== ENCOUNTER → 2020-01-18 10:22 | Outpatient (BNVA) | payer MEDICARE, SELFPAY | PROVIDERS: PCP Registered Nurse; Visit Provider Anesthesiology Pain Medicine | DX: G89.29 Other chronic pain (principal); M25.571 Pain in right ankle and joints of right foot; M25.572 Pain in left ankle and joints of left foot; M19.90 Unspecified osteoarthritis, unspecified site; M25.9 Joint disorder, unspecified; Z98.890 Other specified postprocedural states; Z79.891 Long term (current) use of opiate analgesic | CPT/HCPCS: 99204 ==

== ENCOUNTER → 2020-02-15 11:06 | Outpatient (BNVA) | payer MEDICARE, SELFPAY | PROVIDERS: PCP Registered Nurse; Visit Provider Anesthesiology Pain Medicine | DX: G89.29 Other chronic pain (principal); M25.571 Pain in right ankle and joints of right foot; M25.572 Pain in left ankle and joints of left foot; M25.561 Pain in right knee; M19.90 Unspecified osteoarthritis, unspecified site; M25.9 Joint disorder, unspecified; M25.50 Pain in unspecified joint; Z98.890 Other specified postprocedural states; Z79.891 Long term (current) use of opiate analgesic | CPT/HCPCS: 99213; 99214 ==

== ENCOUNTER → 2020-03-14 10:09 | Outpatient (BNVA) | payer MEDICARE, SELFPAY | PROVIDERS: PCP Registered Nurse; Visit Provider Anesthesiology Pain Medicine | DX: G89.29 Other chronic pain (principal); M25.571 Pain in right ankle and joints of right foot; M25.572 Pain in left ankle and joints of left foot; M25.561 Pain in right knee; M25.562 Pain in left knee; M19.90 Unspecified osteoarthritis, unspecified site; M25.9 Joint disorder, unspecified; Z98.890 Other specified postprocedural states; Z79.891 Long term (current) use of opiate analgesic | CPT/HCPCS: 99213 ==

== ENCOUNTER → 2020-04-20 13:40 | Outpatient (BNVA) | payer MEDICARE, SELFPAY | PROVIDERS: PCP Registered Nurse; Visit Provider Anesthesiology Pain Medicine | DX: G89.29 Other chronic pain (principal); M25.561 Pain in right knee; M19.90 Unspecified osteoarthritis, unspecified site; M25.571 Pain in right ankle and joints of right foot; M25.572 Pain in left ankle and joints of left foot; M25.9 Joint disorder, unspecified; Z98.890 Other specified postprocedural states; Z79.891 Long term (current) use of opiate analgesic | CPT/HCPCS: 99214 ==

== ENCOUNTER → 2020-05-11 13:13 | Outpatient (BNVA) | payer MEDICARE, SELFPAY | PROVIDERS: PCP Registered Nurse; Referring Provider Anesthesiology Pain Medicine; Visit Provider Specialist | DX: M17.11 Unilateral primary osteoarthritis, right knee (principal); M25.561 Pain in right knee | CPT/HCPCS: 73560; 73565 ==

== ENCOUNTER → 2020-06-02 13:22 | Outpatient (BNVA) | payer MEDICARE, SELFPAY | PROVIDERS: PCP Registered Nurse; Visit Provider Anesthesiology Pain Medicine | DX: G89.29 Other chronic pain (principal); M25.571 Pain in right ankle and joints of right foot; M25.572 Pain in left ankle and joints of left foot; M19.90 Unspecified osteoarthritis, unspecified site; M54.9 Dorsalgia, unspecified; M25.561 Pain in right knee; M25.9 Joint disorder, unspecified; M25.50 Pain in unspecified joint; Z98.890 Other specified postprocedural states; Z79.891 Long term (current) use of opiate analgesic | CPT/HCPCS: 99214 ==

== ENCOUNTER → 2020-07-06 10:56 | Outpatient (BNVA) | payer MEDICARE, SELFPAY | PROVIDERS: PCP Registered Nurse; Visit Provider Anesthesiology Pain Medicine | DX: G89.29 Other chronic pain (principal); M25.571 Pain in right ankle and joints of right foot; M25.572 Pain in left ankle and joints of left foot; M25.9 Joint disorder, unspecified; M25.561 Pain in right knee; M54.9 Dorsalgia, unspecified; M19.90 Unspecified osteoarthritis, unspecified site; Z98.890 Other specified postprocedural states; Z79.891 Long term (current) use of opiate analgesic | CPT/HCPCS: 99214 ==

== ENCOUNTER → 2020-08-11 13:13 | Outpatient (BNVA) | payer MEDICARE, MEDICAID, SELFPAY | PROVIDERS: PCP Registered Nurse; Visit Provider Anesthesiology Pain Medicine | DX: G89.29 Other chronic pain (principal); M25.561 Pain in right knee; M25.571 Pain in right ankle and joints of right foot; M25.572 Pain in left ankle and joints of left foot; M54.9 Dorsalgia, unspecified; M19.90 Unspecified osteoarthritis, unspecified site; M25.9 Joint disorder, unspecified; Z98.890 Other specified postprocedural states; Z79.891 Long term (current) use of opiate analgesic | CPT/HCPCS: 99214 ==

== ENCOUNTER → 2020-09-19 11:21 | Outpatient (BNVA) | payer MEDICARE, MEDICAID, SELFPAY | PROVIDERS: PCP Registered Nurse; Visit Provider Anesthesiology Pain Medicine | DX: G89.29 Other chronic pain (principal); M54.9 Dorsalgia, unspecified; M25.571 Pain in right ankle and joints of right foot; M25.572 Pain in left ankle and joints of left foot; M25.561 Pain in right knee; M19.90 Unspecified osteoarthritis, unspecified site; F32.9 Major depressive disorder, single episode, unspecified; Z98.890 Other specified postprocedural states; Z79.891 Long term (current) use of opiate analgesic | CPT/HCPCS: 99214 ==

== ENCOUNTER → 2020-10-17 10:53 | Outpatient (BNVA) | payer MEDICARE, MEDICAID, SELFPAY | PROVIDERS: PCP Registered Nurse; Visit Provider Anesthesiology Pain Medicine | DX: G89.29 Other chronic pain (principal); M25.561 Pain in right knee; M25.562 Pain in left knee; M25.571 Pain in right ankle and joints of right foot; M25.572 Pain in left ankle and joints of left foot; M25.9 Joint disorder, unspecified; M54.9 Dorsalgia, unspecified; M19.90 Unspecified osteoarthritis, unspecified site; F32.9 Major depressive disorder, single episode, unspecified; Z98.890 Other specified postprocedural states; Z79.891 Long term (current) use of opiate analgesic | CPT/HCPCS: 99214 ==

== ENCOUNTER 2020-12-05 15:32 | Inpatient (IN) | payer MEDICARE, MEDICAID, SELFPAY ==
[2020-12-05] VITALS (39 sets, daily range): BP systolic 102–146; BP diastolic 54–88; PULSE 79–111; RESP 18–32; TEMP 38.2–39.3; O2SAT 84–92; BMI 42.0
--- NOTE | 2020-12-05 15:38 | XRR_ITS ---
PROCEDURE INFORMATION: Exam: XR Chest Exam date and time: 12/05/2020 3:38 PM Age: 71 years old Clinical indication: Device placement; Ett placement (vent status); Patient HX: Og tube et tube; Additional info: Dyspnea/cough TECHNIQUE: Imaging protocol: XR of the chest. Views: 1 view. COMPARISON: No relevant prior studies available. FINDINGS: Tubes, catheters and devices: Endotracheal tube terminates 3 cm above the lashay. Enteric tube is seen entering into the stomach and extending outside the field of view Lungs: Patulous consolidations throughout both lungs. Pleural spaces: Unremarkable. No pleural effusion. No pneumothorax. Heart/Mediastinum: Unremarkable. No cardiomegaly. Bones/joints: Unremarkable. XR/XR chest 1V portable [id number] IMPRESSION: 1. Endotracheal tube in proper position above the lashay. 2. Enteric tube enters the stomach extends outside the field of view. 3. Patulous consolidations throughout both lungs suspicious for multifocal pneumonia.
--- NOTE | 2020-12-05 15:42 | ED_ITS ---
HPI - COVID General: Chief Complaint: COVID symptoms Stated Complaint: RESP DISTRESS, COVID Time Seen by Provider: 12/05/20 15:38 Triage information: Has fever, cough or shortness of breath . Exposure to COVID + person last 14 days History of Present Illness: HPI Narrative: 71-year-old female brought in by EMS intubated and being oxygenated by bag valve. Initial O2 sat on arrival in the scene was 50% patient underwent RSI with ketamine and rocuronium. Patient is known positive for Covid and tested positive approximately 1 week ago. Several other family members are Covid positive as well. There is no family here to provide any further history since they are positive they all have remained at home. She was last known well at around 730 this morning. MD complaint: known COVID positive Prior covid testing: yes, results known COVID 19 common symptoms: positive fever(s), cough and dyspnea COVID 19 other sytmptoms: positive requiring oxygen Onset (ago): hour(s) Pertinent comorbid conditions: diabetes, hypertension and heart disease Treatment prior to arrival: none COVID Results: SARS-CoV-2 Antigen (Rapid) Positive (Negative) H 12/05/20 17:20 12/05/20 Nasal/Oral Coronavirus 2019 PCR Pending 12/05/20 17:20 12/05/20 Review of Systems General: Reports: ROS unobtainable due to medical condition Const: Reports: fever(s) Resp: Reports: dyspnea Physical Exam HENMT: COMMON NORMALS: normocephalic and atraumatic HEAD & SCALP: normocephalic and atraumatic Neck/C-Spine: COMMON NORMALS: no JVD Resp: COMMON NORMALS: normal respiratory effort, No retractions, No use of accessory muscles and clear to auscultation bilaterally AUSCULTATION: clear to auscultation bilaterally Cardio: COMMON NORMALS: no JVD, regular rate, regular rhythm and No murmurs present (Cardio) RATE: regular rate RHYTHM: regular rhythm GI: COMMON NORMALS: Soft to palpation and No hepatosplenomegaly present AUSCULTATION: Yes normoactive bowel sounds PALPATION: Yes Soft to palpation, No Tenderness to palpation present (GI), No Guarding due to palpation present (GI) and Yes No hepatosplenomegaly present Extremity: COMMON NORMALS: normal to inspection, capillary refill normal, no clubbing, cyanosis or edema and no calf tenderness GENERAL: Yes edema Course Vital Signs: Vital signs: Vital Signs Temperature 100.7 F H 12/05/20 17:30 Pulse Rate 68 12/06/20 04:55 Respiratory Rate 20 H 12/06/20 05:48 Blood Pressure 116/70 12/06/20 04:45 Pulse Oximetry 91 12/06/20 05:48 MDM - COVID MDM Narrative: Medical decision making narrative: Patient presents in acute respiratory failure was intubated in the field. Chest x-ray showed ET tube in satisfactory position. No family is available at the bedside for history of cancer although not also tested positive for Covid. She is diabetic. The report of positive home antigen test. Antigen test here was positive as well she has been started on remdesivir and Decadron. She may benefit from evaluation for Actemra. Discussed with hospitalist orders written Lab Data: Labs: Lab Results 12/05/20 12/05/20 12/05/20 Range/Units 15:49 15:55 15:55 WBC 6.4 (4.0-10.0) 10^3/ uL RBC 5.13 (4.1-5.3) 10^6/u L Hgb 14.3 (11.5-15.3) g/dL Hct 45.5 (37.0-47.0) % MCV 88.7 (81-99) fl MCH 27.9 L (28.0-34.0) pg MCHC 31.4 (30.0-36.0) g/dL RDW 15.9 H (12.1-15.1) % Plt Count 231 (130-400) 10^3/c mm MPV 10.7 H (7.4-10.4) fL Neut % (Auto) 72.4 % Lymph % (Auto) 15.9 % [place] % (Auto) 8.3 % Eos % (Auto) 0.0 % Baso % (Auto) 0.6 % Neut # (Auto) 4.59 (1.8-7.7) 10^3/u L Lymph # (Auto) 1.0 (0.8-4.8) 10^3/u L [place] # (Auto) 0.5 (0.2-0.9) 10^3/u L Eos # (Auto) 0.0 (0.0-0.8) 10^3/u L Baso # (Auto) 0.0 (0.0-0.1) 10^3/u L Nucleated RBC % (a uto) 0.3 % Nucleated RBCs # 0.0 /100WBC D-Dimer 1.23 H (0-0.59) ug/mIFE U Specimen Type Arterial Sample Site Radial, left ABG pH 7.31 L (7.35-7.45) ABG pCO2 47.6 H (35-45) mmHg ABG pO2 67.4 L (80.0-100.0) mmH g ABG HCO3 23.7 (22-26) mmol/L ABG O2 Saturation 91.0 ABG Base Excess -3.1 L (-2.0-2.0) mmol/ L Martinez Test Pos A-a O2 Gradient 75.7 H (5-10) mmHg Hematocrit 46.9 (37-47) % Hgb O2 Saturation 89.7 L (95-100) % Carboxyhemoglobin 0.9 (0.4-20.1) %THgb Methemoglobin 0.6 (0.4-1.5) % Total Hemoglobin 15.3 (12-16) g/dL Sodium 144.0 H (131-143) mmol/L Potassium 3.5 (3.5-5.0) mmol/L Glucose 220.0 H (70-115) mg/dL Ionized Calcium 1.1 (1.1-1.4) mmol/L O2 Delivery Device Vent FiO2 100.0 % Tidal Volume 0.38 PEEP 14.0 cmH20 Ruffling Machine Operator ID Cak Chloride (98-107) mmol/L Carbon Dioxide (22-29) mmol/L Anion Gap (5-19) BUN (8-23) mg/dL Creatinine (0.5-0.9) mg/dL GFR Calculation Calculated Osmolal ity (285-295) mOsm/k g Lactic Acid (0.5-2.2) mmol/L Calcium (8.5-10.5) mg/dL Total Bilirubin (0.15-1.2) mg/dL AST (0-32) U/L ALT (0-33) U/L Alkaline Phosphata se (35-105) IU/L C-Reactive Protein (0.0-4.9) mg/L Total Protein (6.6-8.7) g/dL Albumin (3.5-5.2) g/dL Globulin (1.3-4.6) g/dL Urine Color (Yellow) Urine Appearance (CLEAR) Urine pH (5-7) Ur Specific Gravit y (1.005-1.030) Urine Protein (Negative) Urine Glucose (UA) (Normal) Urine Ketones (Negative) Urine Blood (Negative) Urine Nitrate (Negative) Urine Bilirubin (Negative) Urine Urobilinogen (Negative) mg/dL Ur Leukocyte Aby ase (Negative) Urine RBC (0-2) /hpf Urine WBC (0-5) /hpf Ur Squamous Epith Cells (0-5) /hpf Amorphous Sediment Urine Bacteria (NONE) /hpf Urine Mucus /hpf SARS-CoV-2 Ag (Rap id) (Negative) 12/05/20 12/05/20 12/05/20 Range/Units 15:55 15:55 17:20 WBC (4.0-10.0) 10^3/ uL RBC (4.1-5.3) 10^6/u L Hgb (11.5-15.3) g/dL Hct (37.0-47.0) % MCV (81-99) fl MCH (28.0-34.0) pg MCHC (30.0-36.0) g/dL RDW (12.1-15.1) % Plt Count (130-400) 10^3/c mm MPV (7.4-10.4) fL Neut % (Auto) % Lymph % (Auto) % [place] % (Auto) % Eos % (Auto) % Baso % (Auto) % Neut # (Auto) (1.8-7.7) 10^3/u L Lymph # (Auto) (0.8-4.8) 10^3/u L [place] # (Auto) (0.2-0.9) 10^3/u L Eos # (Auto) (0.0-0.8) 10^3/u L Baso # (Auto) (0.0-0.1) 10^3/u L Nucleated RBC % (a uto) % Nucleated RBCs # /100WBC D-Dimer (0-0.59) ug/mIFE U Specimen Type Sample Site ABG pH (7.35-7.45) ABG pCO2 (35-45) mmHg ABG pO2 (80.0-100.0) mmH g ABG HCO3 (22-26) mmol/L ABG O2 Saturation ABG Base Excess (-2.0-2.0) mmol/ L Martinez Test A-a O2 Gradient (5-10) mmHg Hematocrit (37-47) % Hgb O2 Saturation (95-100) % Carboxyhemoglobin (0.4-20.1) %THgb Methemoglobin (0.4-1.5) % Total Hemoglobin (12-16) g/dL Sodium 141 (131-143) mmol/L Potassium 3.6 (3.5-5.0) mmol/L Glucose 210 H (70-115) mg/dL Ionized Calcium (1.1-1.4) mmol/L O2 Delivery Device FiO2 % Tidal Volume PEEP cmH20 Ruffling Machine Operator ID Chloride 105 (98-107) mmol/L Carbon Dioxide 22 (22-29) mmol/L Anion Gap 17.6 (5-19) BUN 13 (8-23) mg/dL Creatinine 0.6 (0.5-0.9) mg/dL GFR Calculation Not Reportable Calculated Osmolal ity 298 H (285-295) mOsm/k g Lactic Acid 1.2 (0.5-2.2) mmol/L Calcium 7.7 L (8.5-10.5) mg/dL Total Bilirubin 0.4 (0.15-1.2) mg/dL AST 50 H (0-32) U/L ALT 20 (0-33) U/L Alkaline Phosphata se 137 H (35-105) IU/L C-Reactive Protein 163.4 H (0.0-4.9) mg/L Total Protein 6.5 L (6.6-8.7) g/dL Albumin 3.1 L (3.5-5.2) g/dL Globulin 3.4 (1.3-4.6) g/dL Urine Color (Yellow) Urine Appearance (CLEAR) Urine pH (5-7) Ur Specific Gravit y (1.005-1.030) Urine Protein (Negative) Urine Glucose (UA) (Normal) Urine Ketones (Negative) Urine Blood (Negative) Urine Nitrate (Negative) Urine Bilirubin (Negative) Urine Urobilinogen (Negative) mg/dL Ur Leukocyte Aby ase (Negative) Urine RBC (0-2) /hpf Urine WBC (0-5) /hpf Ur Squamous Epith Cells (0-5) /hpf Amorphous Sediment Urine Bacteria (NONE) /hpf Urine Mucus /hpf SARS-CoV-2 Ag (Rap id) Positive H (Negative) 12/05/20 12/05/20 Range/Units 17:30 18:24 WBC (4.0-10.0) 10^3/ uL RBC (4.1-5.3) 10^6/u L Hgb (11.5-15.3) g/dL Hct (37.0-47.0) % MCV (81-99) fl MCH (28.0-34.0) pg MCHC (30.0-36.0) g/dL RDW (12.1-15.1) % Plt Count (130-400) 10^3/c mm MPV (7.4-10.4) fL Neut % (Auto) % Lymph % (Auto) % [place] % (Auto) % Eos % (Auto) % Baso % (Auto) % Neut # (Auto) (1.8-7.7) 10^3/u L Lymph # (Auto) (0.8-4.8) 10^3/u L [place] # (Auto) (0.2-0.9) 10^3/u L Eos # (Auto) (0.0-0.8) 10^3/u L Baso # (Auto) (0.0-0.1) 10^3/u L Nucleated RBC % (a uto) % Nucleated RBCs # /100WBC D-Dimer (0-0.59) ug/mIFE U Specimen Type Arterial Sample Site Brachial, left ABG pH 7.27 L (7.35-7.45) ABG pCO2 45.8 H (35-45) mmHg ABG pO2 71.7 L (80.0-100.0) mmH g ABG HCO3 20.8 L (22-26) mmol/L ABG O2 Saturation 92.0 ABG Base Excess -6.2 L (-2.0-2.0) mmol/ L Martinez Test Pos A-a O2 Gradient 75.5 H (5-10) mmHg Hematocrit 41.5 (37-47) % Hgb O2 Saturation 90.4 L (95-100) % Carboxyhemoglobin 0.7 (0.4-20.1) %THgb Methemoglobin 1.1 (0.4-1.5) % Total Hemoglobin 13.6 (12-16) g/dL Sodium 142.0 (131-143) mmol/L Potassium 3.5 (3.5-5.0) mmol/L Glucose 311.0 H (70-115) mg/dL Ionized Calcium 1.1 (1.1-1.4) mmol/L O2 Delivery Device Vent FiO2 100.0 % Tidal Volume 0.38 PEEP 14.0 cmH20 Ruffling Machine Operator ID Cak Chloride (98-107) mmol/L Carbon Dioxide (22-29) mmol/L Anion Gap (5-19) BUN (8-23) mg/dL Creatinine (0.5-0.9) mg/dL GFR Calculation Calculated Osmolal ity (285-295) mOsm/k g Lactic Acid (0.5-2.2) mmol/L Calcium (8.5-10.5) mg/dL Total Bilirubin (0.15-1.2) mg/dL AST (0-32) U/L ALT (0-33) U/L Alkaline Phosphata se (35-105) IU/L C-Reactive Protein (0.0-4.9) mg/L Total Protein (6.6-8.7) g/dL Albumin (3.5-5.2) g/dL Globulin (1.3-4.6) g/dL Urine Color Yellow (Yellow) Urine Appearance Hazy A (CLEAR) Urine pH 5 (5-7) Ur Specific Gravit y 1.020 (1.005-1.030) Urine Protein 1+ H (Negative) Urine Glucose (UA) Norm (Normal) Urine Ketones 1+ H (Negative) Urine Blood Neg (Negative) Urine Nitrate Negative (Negative) Urine Bilirubin Neg (Negative) Urine Urobilinogen 1 H (Negative) mg/dL Ur Leukocyte Aby ase Negative (Negative) Urine RBC 0-4 H (0-2) /hpf Urine WBC 0-4 H (0-5) /hpf Ur Squamous Epith Cells 5-10 H (0-5) /hpf Amorphous Sediment Not Reportable Urine Bacteria 1+ H (NONE) /hpf Urine Mucus 2+ /hpf SARS-CoV-2 Ag (Rap id) (Negative) COVID Results: SARS-CoV-2 Antigen (Rapid) Positive (Negative) H 12/05/20 17:20 12/05/20 Nasal/Oral Coronavirus 2019 PCR Pending 12/05/20 17:20 12/05/20 Discharge Plan Discharge Patient Disposition: Admitted As Inpatient Admit Provider: Dee Pedro Clinical Impression: COVID-19, Respiratory failure Condition: Stable Coding Level of Care Code ED Advanced Manufacturing Associate for g Fwd Exam Detailed
[2020-12-05 16:03] LABS: ABG PCO2 47.6 mmHg (35-45); ABG PH Result 7.31 (7.35-7.45); Alveolar-Arterial Oxygen Gradi 75.7 mmHg (5-10); Arterial Blood Gas Hematocrit 46.9 % (37-47); Base Excess ABG -3.1 mmol/L (-2.0-2.0); Blood Gas Allen Test Pos; Blood Gas Operator Identificat CAK; Blood Gas Sample Site Radial, left; Blood Gas Sample Type Arterial; Blood Gas Tidal Volume 0.38; Carboxyhemoglobin 0.9 %THgb (0.4-20.1); HCO3 ABG 23.7 mmol/L (22-26); HGB O2 Sat 89.7 % (95-100); Ionized Calcium Level - ABG 1.1 mmol/L (1.1-1.4); Methemoglobin 0.6 % (0.4-1.5); Oxygen Device VENT; PO2 ABG 67.4 mmHg (80.0-100.0); Potassium Level - ABG 3.5 mmol/L (3.5-5.0); Total Hemoglobin 15.3 g/dL (12-16)
[2020-12-05 16:09] LABS: Basophils % 0.6 %; Hematocrit 45.5 % (37.0-47.0); Hemoglobin 14.3 g/dL (11.5-15.3); Lymphocytes % 15.9 %; Mean Corpuscular HGB Conc 31.4 g/dL (30.0-36.0); Mean Corpuscular Hemoglobin 27.9 pg (28.0-34.0); Mean Corpuscular Volume 88.7 fl (81-99); Mean Platelet Volume 10.7 fL (7.4-10.4); Monocytes # 0.5 10^3/uL (0.2-0.9); Monocytes % 8.3 %; Neutrophils # 4.59 10^3/uL (1.8-7.7); Neutrophils % 72.4 %; Nucleated Red Blood Cells % 0.3 %; Platelet Count 231 10^3/cmm (130-400); Red Blood Count 5.13 10^6/uL (4.1-5.3); Red Cell Distribution Width 15.9 % (12.1-15.1); White Blood Count 6.4 10^3/uL (4.0-10.0)
[2020-12-05] MEDS: dexamethasone 10 mg/mL INJ IVP (16:19)
[2020-12-05] MEDS: acetaminophen 1,000 MG/100 ML PIGGYBACK 400 MG IV (16:21)
[2020-12-05] MEDS: remdesivir 200 MG in sodium chloride 0.9% (100 ml) 100 ML 100 MG IV (16:26)
[2020-12-05 16:30] LABS: D Dimer 1.23 ug/mIFEU (0-0.59)
[2020-12-05 16:33] LABS: Alanine Aminotransferase 20 U/L (0-33); Albumin Level 3.1 g/dL (3.5-5.2); Alkaline Phosphatase 137 IU/L (35-105); Aspartate Amino Transferase 50 U/L (0-32); Blood Urea Nitrogen 13 mg/dL (8-23); C Reactive Protein 163.4 mg/L (0.0-4.9); Calcium 7.7 mg/dL (8.5-10.5); Carbon Dioxide 22 mmol/L (22-29); Globulin 3.4 g/dL (1.3-4.6); Glucose 210 mg/dL (65-115); Total Bilirubin 0.4 mg/dL (0.15-1.2); Total Protein 6.5 g/dL (6.6-8.7)
[2020-12-05 16:34] LABS: Lactic Sepsis W/Reflex 1.2 mmol/L (0.5-2.2)
--- NOTE | 2020-12-05 16:47 | CTR_ITS ---
PROCEDURE INFORMATION: Exam: CTA Chest With Contrast Exam date and time: 12/05/2020 4:47 PM Age: 69 years old Clinical indication: Abnormal findings; Abnormal diagnostic tests; Elevated d-dimer; Shortness of breath; Additional info: D dimer TECHNIQUE: Imaging protocol: Computed tomographic angiography of the chest with contrast. 3D rendering (Not supervised by radiologist): MIP and/or 3D reconstructed images were created by the technologist. Radiation optimization: All CT scans at this facility use at least one of these dose optimization techniques: automated exposure control; mA and/or kV adjustment per patient size (includes targeted exams where dose is matched to clinical indication); or iterative reconstruction. Contrast material: OMNI 350; Contrast volume: 68 ml; Contrast route: INTRAVENOUS (IV); COMPARISON: CR XR chest 1V portable [id number] 12/05/2020 4:25 PM RADIATION DOSE METRICS: Total DLP (mGy-cm): 481.32 FINDINGS: Tubes, catheters and devices: Endotracheal tube terminates within the right mainstem bronchus. Enteric tube terminates within the stomach. Pulmonary arteries: No evident pulmonary emboli. Please note, there is motion limitation examination which limits fine detailed evaluation of the segmental/subsegmental branches. Aorta: Unremarkable. No aortic aneurysm. No aortic dissection. Lungs: Patulous bilateral consolidations throughout both lungs. Pleural spaces: Unremarkable. No pneumothorax. No pleural effusion. Heart: Unremarkable. No cardiomegaly. No pericardial effusion. Lymph nodes: Calcified hilar nodes suggestive of prior granulomatous disease. No adenopathy. Bones/joints: No acute fracture. Soft tissues: Unremarkable. CT/CT angio chest PE protcl [id number] IMPRESSION: 1. Endotracheal tube terminates within the right mainstem bronchus. Recommend repositioning. 2. Bilateral consolidations throughout both lungs suspicious for multifocal pneumonia. 3. No evident pulmonary embolism on motion limited exam. THIS REPORT CONTAINS FINDINGS THAT MAY BE CRITICAL TO PATIENT CARE. The findings were verbally communicated via telephone conference with Dr. Molina at 6:37 PM CDT on 12/05/2020. The findings were acknowledged and understood. Radiation Dose CTDIVOL = (mGy): DLP = 481.32 (mGy-cm)
[2020-12-05 16:49] LABS: Anion Gap 17.6 (5-19); Chloride 105 mmol/L (98-107); Osmolality Calculated 298 mOsm/kg (285-295); Potassium 3.6 mmol/L (3.5-5.1); Sodium 141 mmol/L (136-145)
[2020-12-05] MEDS: propofol 1,000 MG/100 ML INJ 3.13 MG IV (17:44)
[2020-12-05 17:55] LABS: SARS Covid-2 Antigen Positive (Negative)
[2020-12-05 17:55] LABS: Bilirubin Urine Neg (Negative); Blood Urine Neg (Negative); Glucose Urine UA Norm (Normal); Ketones Urine 1+ (Negative); Nitrate Urine Negative (Negative); Protein Urine 1+ (Negative); Urine Appearance Hazy (CLEAR); Urine Color Yellow (Yellow); Urobilinogen Urine 1 mg/dL (Negative); pH Urine 5 (5-7)
[2020-12-05 17:56] LABS: Add Urine Culture? No; Add Urine Microscopic? YES; Bacteria Urine 1+ /hpf; Leukocyte Esterase Urine Negative (Negative); Mucus Urine 2+ /hpf; RBC Urine 0-4 /hpf (0-2); WBC Urine 0-4 /hpf (0-5)
--- NOTE | 2020-12-05 17:58 | PC.PHAR ---
PT UNABLE TO CONFIRM MEDICATIONS DUE TO INTUBATION. PT'S DAUGHTER STATES THAT THE PT TAKES CARE OF HER OWN MEDICATIONS AT HOME. I AM DOING THIS MEDICATION LIST USING THE MEDICATION HISTORY AND PHARMACY LIST FROM [email or web address].
--- NOTE | 2020-12-05 18:23 | PC.NURSE ---
1805 took patient to [facility] with respiratory, rn and 2 ct techs; pt tolerated well.
[2020-12-05] MEDS: iohexol 350 mg/mL 100 mL Btl IV (18:26)
[2020-12-05 18:36] LABS: ABG PCO2 45.8 mmHg (35-45); ABG PH Result 7.27 (7.35-7.45); Alveolar-Arterial Oxygen Gradi 75.5 mmHg (5-10); Arterial Blood Gas Hematocrit 41.5 % (37-47); Base Excess ABG -6.2 mmol/L (-2.0-2.0); Blood Gas Allen Test Pos; Blood Gas Operator Identificat CAK; Blood Gas Sample Site Brachial, left; Blood Gas Sample Type Arterial; Blood Gas Tidal Volume 0.38; Carboxyhemoglobin 0.7 %THgb (0.4-20.1); HCO3 ABG 20.8 mmol/L (22-26); HGB O2 Sat 90.4 % (95-100); Ionized Calcium Level - ABG 1.1 mmol/L (1.1-1.4); Methemoglobin 1.1 % (0.4-1.5); Oxygen Device VENT; PO2 ABG 71.7 mmHg (80.0-100.0); Potassium Level - ABG 3.5 mmol/L (3.5-5.0); Total Hemoglobin 13.6 g/dL (12-16)
--- NOTE | 2020-12-05 20:56 | XRR_ITS ---
PROCEDURE INFORMATION: Exam: XR Chest Exam date and time: 12/05/2020 8:56 PM Age: 69 years old Clinical indication: Device placement; Ett placement (vent status); Additional info: SOB TECHNIQUE: Imaging protocol: XR of the chest. Views: 1 view. COMPARISON: CR XR chest 1V portable [id number] 12/05/2020 4:25 PM FINDINGS: Tubes, catheters and devices: Endotracheal tube located in proper position 2.1 cm above the lashay. Enteric tube and side port noted within the stomach. Lungs: Patulous bilateral consolidations within both lungs, not significantly changed from prior exam. Pleural spaces: Unremarkable. No pleural effusion. No pneumothorax. Heart/Mediastinum: Unremarkable. No cardiomegaly. Bones/joints: Visualized osseous structures are intact. XR/XR chest 1V portable [id number] IMPRESSION: 1. Endotracheal tube in proper position above the lashay. 2. Stable positioning of enteric tube. 3. Similar appearance of patulous consolidations throughout both lungs.
[2020-12-05] MEDS: vecuronium 10 mg SDV IVP (20:58)
--- NOTE | 2020-12-05 21:04 | PM.HP ---
Providers/Chief Complaint Primary Care Provider: Maite Singh Chief Complaint: RESP DISTRESS, COVID History of Present Illness Veronica Saucedo 68 something year old female who was brought in by EMS intubated and being oxygenated by bag valve for respiratory failure. Apparently patient's oxygen saturation were 50%. She tested positive Covid roughly around November 28. Patient is currently intubated and sedated history is from chart review. She does have 2 charts open with a different date of . In the emergency room patient had a chest x-ray as well as a CTA completed. Remdesivir as well as Decadron was given. She is noted to have a D-dimer of 1.23 as well as a CRP of 163.4. CTA chest IMPRESSION: 1. Endotracheal tube terminates within the right mainstem bronchus. Recommend repositioning. 2. Bilateral consolidations throughout both lungs suspicious for multifocal pneumonia. 3. No evident pulmonary embolism on motion limited exam. Review of Systems General: Reports: ROS unobtainable due to mental status Medications/Allergies Home Medications Medication Instructions Recorded Confirmed Last Taken Type citalopram 40 mg PO DAILY 12/05/20 12/05/20 Unknown History furosemide 40 mg PO DAILY 12/05/20 12/05/20 Unknown History hydrocodone-acetaminophen 1 tab PO Q8H PRN 12/05/20 12/05/20 Unknown History montelukast 10 mg PO DAILY 12/05/20 12/05/20 Unknown History Allergies Allergy/AdvReac Type Severity Reaction Status Date / Time Unable to Assess Allergy Unverified 12/05/20 19:46 Vitals/I&O/Wt Last Vital Signs Temp 100.7 F H 12/05/20 17:30 Pulse 90 12/05/20 21:02 Resp 18 12/05/20 21:02 BP 125/73 12/05/20 21:02 Pulse Ox 91 12/05/20 21:02 12/05/20 12/05/20 12/05/20 06:59 14:59 22:59 Intake Total 206.714 / 206.714 Balance 206.714 / 206.714 Weight last 48 hrs Weight 230 lb Physical Exam Const: OTHER: Sedated and on vent Chest: COMMONS NORMALS: normal inspection of the chest Resp: COMMON NORMALS: clear to auscultation bilaterally Cardio: COMMON NORMALS: regular rate and regular rhythm GI: COMMON NORMALS: Soft to palpation Extremity: COMMON NORMALS: normal to inspection and no pedal edema Urinary Catheter Management^: [place]: Cath Placed During This Visit: yes Urinary Catheter Date of Insertion: 12/05/20 Urinary Catheter Time of Insertion: 16:05 Data : 12/05/20 15:55 12/05/20 15:55 Micro: Microbiology 12/05/20 16:45 Gram Stain - Final Sputum - Endotracheal Tube Aspirate CTA chest IMPRESSION: 1. Endotracheal tube terminates within the right mainstem bronchus. Recommend repositioning. 2. Bilateral consolidations throughout both lungs suspicious for multifocal pneumonia. 3. No evident pulmonary embolism on motion limited exam. 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
--- NOTE | 2020-12-05 21:15 | PC.NURSE ---
Patient's ET tube had leak in cuff, Genaro, RT advised Dr. Molina. Dr. Molina and Genaro, RT changed ET tube to 8.0 Fr with bougie and co-mapping pilot assistance. xray at bedside for verification
--- NOTE | 2020-12-05 21:19 | XRR_ITS ---
PROCEDURE INFORMATION: Exam: XR Chest Exam date and time: 12/05/2020 9:19 PM Age: 69 years old Clinical indication: Device placement; Ett placement (vent status); Additional info: Post-intubation TECHNIQUE: Imaging protocol: XR of the chest. Views: 1 view. COMPARISON: CR XR chest 1V portable [id number] 12/05/2020 8:51 PM FINDINGS: Tubes, catheters and devices: Similar positioning of endotracheal tube 2 cm above the lashay. Similar position of the enteric tube. Lungs: Unchanged bilateral consolidations within both lungs. Pleural spaces: Unremarkable. No pleural effusion. No pneumothorax. Heart/Mediastinum: Unremarkable. No cardiomegaly. Bones/joints: Visualized osseous structures are intact. XR/XR chest 1V portable [id number] IMPRESSION: 1. Similar positioning of lines and tubes. 2. Unchanged appearance of bilateral consolidations within both lungs.
[2020-12-05] MEDS: enoxaparin 40 mg/0.4 mL Syringe SUBCUT (22:32)
[2020-12-05 23:12] LABS: ABG PCO2 41.2 mmHg (35-45); ABG PH Result 7.29 (7.35-7.45); Base Excess ABG -6.3 mmol/L (-2.0-2.0); Blood Gas Allen Test POS; HCO3 ABG 19.9 mmol/L (22-26); Oxygen Device VENT; PO2 ABG 69.8 mmHg (80.0-100.0)
[2020-12-05 23:13] LABS: Blood Gas Sample Type ARTERIAL
[2020-12-05 23:14] LABS: Arterial Blood Gas Hematocrit 37.1 % (37-47)
[2020-12-06] VITALS (126 sets, daily range): BP systolic 103–178; BP diastolic 55–91; PULSE 66–119; RESP 18–21; TEMP 36.5–37.5; O2SAT 80–99
[2020-12-06] MEDS: sodium chloride 0.9% 1,000 ML 75 ML IV ×2 (01:52→14:15)
[2020-12-06 04:52] LABS: ABG PCO2 37.9 mmHg (35-45); ABG PH Result 7.39 (7.35-7.45); Arterial Blood Gas Hematocrit 42.6 % (37-47); Blood Gas Allen Test Pos; Blood Gas Sample Site Radial, left; Blood Gas Sample Type Arterial; HCO3 ABG 22.8 mmol/L (22-26); Oxygen Device VENT; PO2 ABG 57.1 mmHg (80.0-100.0)
[2020-12-06] MEDS: remdesivir 100 MG in sodium chloride 0.9% (100 ml) 100 ML IV (05:24)
[2020-12-06 06:05] LABS: Basophils % 0.3 %; Hematocrit 42.1 % (37.0-47.0); Hemoglobin 13.2 g/dL (11.5-15.3); Lymphocytes # 1.1 10^3/uL (0.8-4.8); Lymphocytes % 13.5 %; Mean Corpuscular HGB Conc 31.4 g/dL (30.0-36.0); Mean Corpuscular Hemoglobin 27.8 pg (28.0-34.0); Mean Corpuscular Volume 88.6 fl (81-99); Mean Platelet Volume 11.1 fL (7.4-10.4); Monocytes # 0.6 10^3/uL (0.2-0.9); Monocytes % 7.5 %; Nucleated Red Blood Cells % 0 %; Platelet Count 227 10^3/cmm (130-400); Red Blood Count 4.75 10^6/uL (4.1-5.3); Red Cell Distribution Width 16.1 % (12.1-15.1); White Blood Count 7.8 10^3/uL (4.0-10.0)
[2020-12-06 06:12] LABS: INR 1.12 (0.8-1.2)
[2020-12-06 06:13] LABS: Partial Thromboplastin Time 43.7 SECONDS (23.9-36.7)
[2020-12-06 06:14] LABS: Fibrinogen 667 mg/dL (174-498)
--- NOTE | 2020-12-06 06:14 | PC.NURSE ---
Shift Note Frequent safety and comfort rounds continue. Orders and/or nursing care completed as indicated. Patient monitored for response to intervention and treatment(s). Education provided includes respiratory function. Patient and/or underwriting service representative reinforcement needed. Will continue to monitor.
[2020-12-06 06:27] LABS: Estmated Average Glucose 169; Hemoglobin A1C 7.5 % (4.0-6.0)
[2020-12-06 06:30] LABS: NT Pro B Type Natriuretic Pept 1761 pg/mL (0-125); Procalcitonin 1.01 ng/mL (0-0.5)
[2020-12-06 06:43] LABS: Alanine Aminotransferase 18 U/L (0-33); Alkaline Phosphatase 124 IU/L (35-105); Aspartate Amino Transferase 35 U/L (0-32); Blood Urea Nitrogen 22 mg/dL (8-23); C Reactive Protein 194.9 mg/L (0.0-4.9); Calcium 7.5 mg/dL (8.5-10.5); Carbon Dioxide 21 mmol/L (22-29); Chloride 102 mmol/L (98-107); Creatine Phosphokinase 63 U/L (26-192); Ferritin 404 ng/mL (15-150); Globulin 3.2 g/dL (1.3-4.6); Glucose 443 mg/dL (65-115); Lactate Dehydrogenase 515 U/L (135-214); Osmolality Calculated 306 mOsm/kg (285-295); Phosphorus 2.5 mg/dL (2.5-4.5); Sodium 137 mmol/L (136-145); Total Bilirubin 0.3 mg/dL (0.15-1.2); Total Protein 6.2 g/dL (6.6-8.7)
[2020-12-06 07:08] LABS: Troponin T (5th) Once 15 ng/L (0-10)
[2020-12-06] MEDS: propofol 1,000 MG/100 ML INJ 6.26 MG IV (07:17)
[2020-12-06 07:26] LABS: Glucose Point of Care 408 mg/dL (70-110)
[2020-12-06] MEDS: dexamethasone 10 mg/mL INJ 6 MG IVP (08:38)
--- NOTE | 2020-12-06 08:40 | PC.CHAP ---
Pastoral Care Encounter/Spiritual Assessment Type of Contact [] Declined pharmacy service associate visit [] Patient/Family/Request visit [] Outpatient visit [] Follow-up visit [] Physician referral [] Code/Alert [x] Routine visit [] Staff referral [] Actively dying [] Patient sleeping [] Family support [] [] Out of room [] Palliative care [] [] Receiving care in room [] Pre-surgical visit [] Trauma [] Long length of stay [x] ICU visit [] Other: Relational/Emotional Strength [] Patient feels connected with others/family/visitors/staff [] Distress [] Loneliness/isolation [] Abandonment Spirituality of Patient [] Person of Monika [] Attends Voodoo of their Monika [] Believes in Prayer [] Reads Bible or Catholic materials [] There are Spiritual issues to be addressed Cattle Manager Interventions [x] Prayer [] Active listening [] Non-anxious presence [] Spiritual/emotional support [] Crisis/trauma care [] Spiritual counseling [] Bereavement support [] Provided bereavement packet [] Provided Bible/devotional materials [] Provided toy/stuffed animal, coloring book to patient or family member [] Provided Communion [] Anointing/[place] [] Salvation [x] Completed spiritual assessment [] Other: Impact on Illness or Injury [] Angry [] Fearful [] Anxious [] Often cries [] Exhaustion [] Unable to work [] Unable to attend sabianist [] Unable to walk/stand [] Unable to read [] Unable to drive [] Unable to eat/drink [] Unable to sleep [] Unable to be with family [] Patient intubated [] Other: Summary Time spent with patient
--- NOTE | 2020-12-06 09:55 | PC.NURSE ---
0700 Report received, assessment completed. No s/s of pain or SOB noted. 8.0 ETT at 22cm at lip. AC 20, Vt 400, Fio2 100%, and peep 10. OGT to LWS. R AC 18g with NS infusing per orders, R wrist 20g propofol and versed infusing per orders. Stoddard cath in place draining clear, tracie urine to BSD. Pt repositioned q2h and PRN and oral care performed q2h. Will monitor.
--- NOTE | 2020-12-06 10:00 | XRR_ITS ---
PROCEDURE INFORMATION: Exam: XR Chest Exam date and time: 12/06/2020 10:00 AM Age: 69 years old Clinical indication: Condition or disease and device placement; Ett placement (vent status); Lung condition and disease; Respiratory distress; Additional info: Covid vent TECHNIQUE: Imaging protocol: XR of the chest. Views: 1 view. COMPARISON: CR XR chest 1V portable [id number] 12/05/2020 9:09 PM FINDINGS: Tubes, catheters and devices: Endotracheal tube is in satisfactory position. Feeding tube is in satisfactory position. Lungs: Low lung volumes. Persistent bilateral airspace opacities. No large pleural effusion or pneumothorax. Pleural spaces: See Lungs finding. Heart/Mediastinum: Stable cardiomediastinal silhouette. Bones/joints: No acute osseous injury identified. XR/XR chest 1V portable [id number] IMPRESSION: Persistent bilateral airspace opacities.
[2020-12-06 11:13] LABS: Glucose Point of Care 433 mg/dL (70-110)
[2020-12-06] MEDS: ipratropium-albuterol 3 mL Neb INHALATION ×4 (11:27→23:43)
[2020-12-06 15:35] LABS: Coronavirus Test Green County Detected
--- NOTE | 2020-12-06 15:39 | PM.PN ---
Subjective Subjective: Interval history: 69-year-old female who was brought in by EMS intubated and being oxygen by bag valve for respiratory failure. Apparently oxygen saturations were in the 50s. She tested positive for Covid roughly around November 28. Patient was placed on ventilator. In the ER patient had a CTA which was negative for PE. She has initiated remdesivir as well as Decadron. The patient was able to reduce her FiO2 to 90% today. Noted to have elevated blood sugars. Medications: Reviewed: Yes Vitals/I&O/Wt Last Vital Signs Temp 98.1 F 12/06/20 12:00 Pulse 91 12/06/20 14:00 Resp 18 12/06/20 13:28 BP 129/82 12/06/20 14:00 Pulse Ox 90 12/06/20 14:00 12/06/20 12/06/20 12/06/20 06:59 14:59 22:59 Intake Total 195.666 / 956.404 6202.582 / 1131.582 Output Total 750 / 750 Balance -554.334 / -964.928 3614.582 / 1131.582 Weight last 48 hrs Weight 230 lb Physical Exam Const: OTHER: Sedated and intubated Resp: COMMON NORMALS: normal respiratory effort and No retractions Cardio: COMMON NORMALS: regular rate and regular rhythm RATE: regular rate RHYTHM: regular rhythm Extremity: COMMON NORMALS: normal to inspection Urinary Catheter Management^: Stoddard: Cath Placed During This Visit: yes Reason for Continuing Indwelling Catheter: Accurate Measurement of Urinary Output in Critically Ill Patients Urinary Catheter Date of Insertion: 12/05/20 Urinary Catheter Time of Insertion: 16:05 Data : 12/06/20 05:30 12/06/20 05:30 Micro: Microbiology 12/05/20 15:55 Blood Culture - Preliminary Blood SPECIMEN COLLECTED 12/05/20 15:50 Blood Culture - Preliminary Blood SPECIMEN COLLECTED 12/05/20 16:45 Gram Stain - Final Sputum - Endotracheal Tube Aspirate A&P Assessment and plan (1) Respiratory failure: Status: Acute (2) COVID-19: Status: Acute (3) Hyperglycemia: Status: Acute Additional A&P Information #respiratory failure #covid 19 pneumonia --admited to ICU --on vent support, sedation --repeat ABG, currently AC/380// FIO2 80% --continue remdesivir , decadron -vitamin D, C, Zinc --trend labs #hyperglycemia --check AIC, fsbs, ssi #elevated d dimer --cta negative for PE DVT: Ehsan Attestations Medical Necessity Statement*: Veronica Saucedo's hospital stay will require greater than 2 midnights for respiratory failure Coding Level of Care Code Acute Production Support Engineer for [facility] Diagnoses Respiratory failure J96.90 COVID-19 U07.1 Hyperglycemia R73.9
[2020-12-06 16:01] LABS: Glucose Point of Care 278 mg/dL (70-110)
--- NOTE | 2020-12-06 17:45 | XRR_ITS ---
PROCEDURE INFORMATION: Exam: XR Chest Exam date and time: 12/06/2020 5:45 PM Age: 69 years old Clinical indication: Device placement; Other: Central line placement; Additional info: Central line placement, will call when ready TECHNIQUE: Imaging protocol: XR of the chest. Views: 1 view. COMPARISON: CR XR chest 1V portable [id number] 12/06/2020 9:59 AM FINDINGS: Tubes, catheters and devices: Endotracheal tube terminates 3.2 cm above the lashay. Stable positioning of the enteric tube within the stomach. Right central line terminates within the right atrium. Lungs: Patulous consolidations throughout both lungs. Pleural spaces: Potential traces pleural effusions. No pneumothorax. Heart/Mediastinum: Unremarkable. No cardiomegaly. Bones/joints: Visualized osseous structures are intact. XR/XR chest 1V portable [id number] IMPRESSION: 1. Right central line terminates within the right atrium. 2. Stable positioning of other lines/tubes. 3. Similar patulous consolidations throughout both lungs.
--- NOTE | 2020-12-06 18:26 | ANES.PROC ---
Anesthesia Procedures Procedure/Date: 12/06/20 Central Venous Insert: Time Out Performed: Yes Consent: requested by attending/covering physician, risks and benefits reviewed, patient agrees to proceed (consent from family member) and emergency procedure Central Line: New (requested to place for COVID prone patient protocol ) Anesthesia monitors: pulse oximetry, EKG, BP cuff and oxygen Ultrasound used: to identify patency to vessel and to visualize needle entry to vein Post procedure: Obtain Chest X-Ray Additional Comments: challenging placement 2/2 thick neck; IJ located and identified by US; literally laying on carotid even as I panned supior/inferior to identify area where IJ from Carotid; I didn't identify an area so punctured directly above IJ per US; venous flow identified, when I advanced wire I met resistance, when I withdrew it appeared pulsatile; reconfirmed w US I was in IJ and wire went in smoothly; sterile dressing; CXR pending
[2020-12-06] MEDS: propofol 1,000 MG/100 ML INJ 31.3 MG IV ×2 (18:34→22:22)
--- NOTE | 2020-12-06 18:40 | PC.NURSE ---
Shift Note Frequent safety and comfort rounds continue. Orders and/or nursing care completed as indicated. Patient monitored for response to intervention and treatment(s). Education provided includes treatment plan and central line placement. Family will need reinforcement with teaching throughout admission. Gtts infusing per orders. CVL placed, Awaiting radiology to read CXR to verify placement. O2 sats in upper 80's. All other VSS. Will continue to monitor.
[2020-12-06] MEDS: cisatracurium 100 MG in sodium chloride 0.9% 50 ML IV (18:59)
[2020-12-06 19:52] LABS: Glucose Point of Care 253 mg/dL (70-110)
[2020-12-06] MEDS: FUROsemide 10 mg/mL SDV 4mL 40 MG IVP (19:58)
[2020-12-06] MEDS: enoxaparin 40 mg/0.4 mL Syringe SUBCUT (22:25)
[2020-12-07] VITALS (68 sets, daily range): BP systolic 104–177; BP diastolic 51–89; PULSE 100–148; RESP 18–30; TEMP 36.8–36.9; O2SAT 80–97
[2020-12-07] MEDS: propofol 1,000 MG/100 ML INJ 28.17 MG IV (01:48)
[2020-12-07] MEDS: sodium chloride 0.9% 1,000 ML 75 ML IV ×2 (01:53→14:11)
[2020-12-07] MEDS: ipratropium-albuterol 3 mL Neb INHALATION ×6 (03:28→23:35)
[2020-12-07 04:56] LABS: ABG PCO2 64.7 mmHg (35-45); ABG PH Result 7.16 (7.35-7.45); Blood Gas Allen Test POS; HCO3 ABG 22.9 mmol/L (22-26); Oxygen Device VENT; PO2 ABG 95.7 mmHg (80.0-100.0)
[2020-12-07 04:57] LABS: Arterial Blood Gas Hematocrit 43.9 % (37-47); Blood Gas Sample Type ARTERIAL
[2020-12-07] MEDS: propofol 1,000 MG/100 ML INJ 31.3 MG IV ×2 (04:58→09:07)
[2020-12-07] MEDS: remdesivir 100 MG in sodium chloride 0.9% (100 ml) 100 ML IV (05:00)
--- NOTE | 2020-12-07 05:12 | PC.NURSE ---
Shift Note Frequent safety and comfort rounds continue. Orders and/or nursing care completed as indicated. Patient monitored for response to intervention and treatment(s). Education provided includes paralytic treatment. Patient and/or wireless sales representative reinforcement needed. Will continue to monitor.
--- NOTE | 2020-12-07 06:02 | PC.NURSE ---
BIZ/TOF 1999 30/4 2200 26/0 2400 37/4 0200 41/4 0400 40/4 0600 41/2
--- NOTE | 2020-12-07 08:54 | PC.CHAP ---
Pastoral Care Encounter/Spiritual Assessment Type of Contact [] Declined margarine churn operator visit [] Patient/Family/Request visit [] Outpatient visit [] Follow-up visit [] Physician referral [] Code/Alert [x] Routine visit [] Staff referral [] Actively dying [] Patient sleeping [] Family support [] [] Out of room [] Palliative care [] [] Receiving care in room [] Pre-surgical visit [] Trauma [] Long length of stay [x] ICU visit [] Other: Relational/Emotional Strength [] Patient feels connected with others/family/visitors/staff [] Distress [] Loneliness/isolation [] Abandonment Spirituality of Patient [] Person of Monika [] Attends Amish of their Monika [] Believes in Prayer [] Reads Bible or Druze materials [] There are Spiritual issues to be addressed Pipe Smoking Machine Offbearer Interventions [x] Prayer [] Active listening [] Non-anxious presence [] Spiritual/emotional support [] Crisis/trauma care [] Spiritual counseling [] Bereavement support [] Provided bereavement packet [] Provided Bible/devotional materials [] Provided toy/stuffed animal, coloring book to patient or family member [] Provided Communion [] Anointing/[place] [] Salvation [x] Completed spiritual assessment [] Other: Impact on Illness or Injury [] Angry [] Fearful [] Anxious [] Often cries [] Exhaustion [] Unable to work [] Unable to attend gnosticism [] Unable to walk/stand [] Unable to read [] Unable to drive [] Unable to eat/drink [] Unable to sleep [] Unable to be with family [] Patient intubated [] Other: Summary Time spent with patient
[2020-12-07 09:02] LABS: Glucose Point of Care 340 mg/dL (70-110)
[2020-12-07] MEDS: azithromycin 500 MG in sodium chloride 0.9% 250 ML 250 MG IV (09:03)
[2020-12-07] MEDS: cefTRIAXone 1,000 MG in sodium chloride 0.9% (plus) 50 ML 100 MG IV (09:03)
[2020-12-07] MEDS: dexamethasone 10 mg/mL INJ 6 MG IVP (09:04)
--- NOTE | 2020-12-07 09:09 | PC.NURSE ---
Shift Note Frequent safety and comfort rounds continue. Orders and/or nursing care completed as indicated. Patient monitored for response to intervention and treatment(Sedation and sedation vacation, paralytics, and proning). Education provided includes[Family members]. Patient and/or artist representative [verbally understood]. Will continue to monitor. Received bed side shift report from off going nurse. Pt's plan of care reviewed. Pt is resting in bed. Respirations are even and unlabored. No s/sx of distress noted. Pt is currently intubated and under sedations and paralytics. TOF 4/4 of 4 miliamps but compliant with ventilation. BIS is 25 at this time. Pt is prone and appears to be resting comfortably at this time. Pt's oxygen saturation is currently 95%. Multiple family members called and were updated on pt's status and plan of care. Bed in lowest and locked position and bed alarm on. Will continue to monitor pt.
[2020-12-07 09:12] LABS: ABG PCO2 49.8 mmHg (35-45); Arterial Blood Gas Hematocrit 44.7 % (37-47); Base Excess ABG -9.1 mmol/L (-2.0-2.0); Blood Gas Allen Test Pos; Blood Gas Operator Identificat CAK; Blood Gas Sample Site Radial, left; Blood Gas Sample Type Arterial; Blood Gas Tidal Volume 0.34; HCO3 ABG 19.2 mmol/L (22-26); Oxygen Device VENT; PO2 ABG 89.9 mmHg (80.0-100.0)
[2020-12-07] MEDS: insulin glargine 100 units/1 mL 10 UNIT SUBCUT (09:35)
[2020-12-07 11:35] LABS: ABG PCO2 45.6 mmHg (35-45); ABG PH Result 7.19 (7.35-7.45); Arterial Blood Gas Hematocrit 44.7 % (37-47); Base Excess ABG -10.7 mmol/L (-2.0-2.0); Blood Gas Allen Test Pos; Blood Gas Operator Identificat CAK; Blood Gas Sample Site Radial, left; Blood Gas Sample Type Arterial; HCO3 ABG 17.4 mmol/L (22-26); PO2 ABG 69.4 mmHg (80.0-100.0)
[2020-12-07 11:36] LABS: Blood Gas Tidal Volume 0.34; Oxygen Device VENT
[2020-12-07] MEDS: propofol 1,000 MG/100 ML INJ 25.04 MG IV ×3 (12:03→20:43)
--- NOTE | 2020-12-07 12:18 | PC.NURSE ---
TOF 4/4. Pt is compliant with ventilation.
[2020-12-07 12:41] LABS: Glucose Point of Care 362 mg/dL (70-110)
--- NOTE | 2020-12-07 13:17 | PM.PN ---
Subjective Subjective: Interval history: 69-year-old female who was brought in by EMS intubated and being oxygen by bag valve for respiratory failure. Apparently oxygen saturations were in the 50s. She tested positive for Covid roughly around November 28. Patient was placed on ventilator. In the ER patient had a CTA which was negative for PE. She has initiated remdesivir as well as Decadron. Central line placed. Started Proning session. sats initially diminished, required increased sedation blood sugars elevated lantus added, now on insulin gtt AC/340/22/12/85% Medications: Reviewed: Yes Vitals/I&O/Wt Last Vital Signs Temp 98.2 F 12/07/20 08:00 Pulse 110 H 12/07/20 12:00 Resp 22 H 12/07/20 11:27 BP 142/69 12/07/20 12:00 Pulse Ox 94 12/07/20 12:00 12/06/20 12/07/20 12/07/20 22:59 06:59 14:59 Intake Total 341.077 / 5353.477 3852.847 / 2782.506 565.346 / 565.346 Output Total 275 / 275 1000 / 1275 Balance 66.077 / 1197.659 309.847 / 1507.506 565.346 / 565.346 Weight last 48 hrs Weight 217 lb 1 oz Weight 230 lb Physical Exam Const: OTHER: sedated and intubated Resp: OTHER: coarse breath sounds Cardio: COMMON NORMALS: regular rate and regular rhythm RATE: regular rate RHYTHM: regular rhythm GI: COMMON NORMALS: Soft to palpation PALPATION: Yes Soft to palpation Extremity: COMMON NORMALS: normal to inspection and no pedal edema Skin: COMMON NORMALS: no rashes or lesions noted GENERAL SKIN EXAM: no rashes or lesions noted Urinary Catheter Management^: Stoddard: Cath Placed During This Visit: yes Reason for Continuing Indwelling Catheter: Accurate Measurement of Urinary Output in Critically Ill Patients Urinary Catheter Date of Insertion: 12/05/20 Urinary Catheter Time of Insertion: 16:05 Data : 12/06/20 05:30 12/06/20 05:30 Micro: Microbiology 12/05/20 16:45 Gram Stain - Final Sputum - Endotracheal Tube Aspirate Sputum Culture - Preliminary 12/05/20 15:55 Blood Culture - Preliminary Blood NEGATIVE TO DATE 12/05/20 15:50 Blood Culture - Preliminary Blood NEGATIVE TO DATE A&P Assessment and plan (1) Diabetes: Status: Acute (2) Acidosis: Status: Acute (3) COVID-19: Status: Acute (4) Respiratory failure: Status: Acute Additional A&P Information #respiratory failure #ARDS #Covid 19 pneumonia --completed first proning session this AM --current vent settings AC/340/22/12/85% --continue decadron, remdesivir --trend labs --continue vitamin C,D, Zinc --elevated procalcitonin --add Rocephin, and Azithromycin very acidotic --check lactic acid, ketones, bmp will discuss with pulmonary #Diabetes -AIC 7.5 -insulin gtt started #elevated d dimer --cta negative for PE DVT: Lovenox Attestations Medical Necessity Statement*: Veronica Saucedo's hospital stay will require greater than 2 midnights for respiratory failure Coding Level of Care Code Acute Group Insurance Special Agent for [facility] Diagnoses Diabetes E11.9 Acidosis E87.2 COVID-19 U07.1 Respiratory failure J96.90
[2020-12-07] MEDS: insulin regular-human 250 UNIT in sodium chloride 0.9% 250 ML 9.21 UNIT IV (13:38)
--- NOTE | 2020-12-07 14:08 | PC.NUTR ---
Nutrition Note: NPO day 3. If unable to extubate within 1-3 days, recommend consideration of nutrition support if consistent with pt's goals of care. Recommend Glucerna 1.2, starting at 10 ml/hr and increasing by 10 ml/hr q 8 hrs, to goal rate of 30 CC/hr providing 864 kcal/d and 43 g PRO. Propofol @ 25.04 ml/hr proving 661 kcal/day. See full RD assessment for further details.
[2020-12-07 14:28] LABS: Ketone (Acetest) Serum Negative (Negative)
[2020-12-07 14:36] LABS: Blood Urea Nitrogen 21 mg/dL (8-23); Calcium 7.2 mg/dL (8.5-10.5); Carbon Dioxide 18 mmol/L (22-29); Chloride 106 mmol/L (98-107); Glucose 342 mg/dL (65-115); Osmolality Calculated 313 mOsm/kg (285-295); Sodium 143 mmol/L (136-145)
[2020-12-07 14:44] LABS: Anion Gap 22.3 (5-19); Lactate Dehydrogenase 599 U/L (135-214); Potassium 3.3 mmol/L (3.5-5.1)
[2020-12-07 14:49] LABS: Add Urine Microscopic? YES; Bacteria Urine 2+ /hpf; Bilirubin Urine Neg (Negative); Blood Urine 2+ (Negative); Glucose Urine UA Norm (Normal); Ketones Urine Negative (Negative); Leukocyte Esterase Urine Negative (Negative); Nitrate Urine Negative (Negative); Protein Urine 1+ (Negative); Specific Gravity, Urine 1.015 (1.005-1.030); Squamous Epithelial Cell Urine 0-4 /hpf (0-5); Urine Appearance SL Hazy (CLEAR); Urine Color Yellow (Yellow); Urobilinogen Urine Neg (Negative); WBC Urine 0-4 /hpf (0-5); pH Urine 5 (5-7)
[2020-12-07 14:50] LABS: Add Urine Culture? Yes
[2020-12-07 15:46] LABS: Glucose Point of Care 323 mg/dL (70-110)
[2020-12-07 15:50] LABS: Glucose Point of Care 363 mg/dL (70-110)
[2020-12-07 16:51] LABS: Alveolar-Arterial Oxygen Gradi 77.3 mmHg (5-10); Arterial Blood Gas Hematocrit 45.2 % (37-47); Base Excess ABG -9.5 mmol/L (-2.0-2.0); Blood Gas Allen Test Pos; Blood Gas Operator Identificat CAK; Blood Gas Sample Site Brachial, left; Blood Gas Sample Type Arterial; Blood Gas Tidal Volume 0.35; Carboxyhemoglobin 0.6 %THgb (0.4-20.1); HCO3 ABG 20.1 mmol/L (22-26); HGB O2 Sat 77.8 % (95-100); Ionized Calcium Level - ABG 1.1 mmol/L (1.1-1.4); Methemoglobin 1.1 % (0.4-1.5); Oxygen Device VENT; Oxygen Saturation ABG 79.1; PO2 ABG 46.8 mmHg (80.0-100.0); Potassium Level - ABG 3.3 mmol/L (3.5-5.0); Total Hemoglobin 14.8 g/dL (12-16)
[2020-12-07 16:53] LABS: ABG PH Result 7.15 (7.35-7.45)
[2020-12-07] MEDS: cisatracurium 100 MG in sodium chloride 0.9% 50 ML 18.78 MG IV (17:44)
[2020-12-07] MEDS: sodium chloride 0.9% 500 ML IV (17:45)
[2020-12-07 17:50] LABS: Glucose Point of Care 306 mg/dL (70-110)
--- NOTE | 2020-12-07 18:22 | P.CONIM_ITS ---
Providers/Reason For Consult Consulting Physician/Specialty*: Pulmonary critical care medicine Reason for Consult*: ARDS from COVID-19 Attending Physician: Dee Pedro MD Primary Care Provider: Maite Singh History of Present Illness History of Present Illness Veronica Saucedo is a 69 year old female who was brought to the hospital on December 05 after being intubated by the EMS in the field. According to the documentation her oxygen saturation was in the 50s. She tested positive for COVID-19 likely on November 28. The patient underwent a CT angiogram of the chest which did not reveal any pulmonary embolism. The patient had diffuse bilateral opacities. She was started on remdesivir, empiric antibiotic and dexamethasone. The patient decompensated in the past 24 hours and was proned yesterday night. Today after the patient was put on supine position her oxygen saturation was in the low 80s on 100% FiO2. Chest x-ray revealed bilateral diffuse opacities. Multiple blood gas analysis showed severe hypoxemia as well as acute respiratory acidosis. Her CRP is elevated at 195. I have seen and examined the patient in ICU. She was on volume control mechanical ventilation. The minute ventilation was about 7 to 8 L. The patient is approximately 3 L fluid positive. I had put in an A-line for frequent ABG monitoring. The patient was proned after that. Currently the patient is on pressure pressure control mechanical ventilation, heart tidal volume is in mid 300s. Respirate of 30 and PEEP of 12. Her oxygen saturation improved to 93% after being proned. Review of Systems Narrative: Unable to obtain Meds/Allergies Home Medications and Allergies Home Medications Medication Instructions Recorded Confirmed Last Taken Type citalopram 40 mg PO DAILY 12/05/20 12/05/20 Unknown History furosemide 40 mg PO DAILY 12/05/20 12/05/20 Unknown History hydrocodone-acetaminophen 1 tab PO Q8H PRN 12/05/20 12/05/20 Unknown History montelukast 10 mg PO DAILY 12/05/20 12/05/20 Unknown History Allergies Allergy/AdvReac Type Severity Reaction Status Date / Time Unable to Assess Allergy Unverified 12/05/20 19:46 Current Medications Current Medications Generic Name Dose Route Start Last Admin Trade Name Freq PRN Reason Stop Dose Admin Albuterol/Ipratropium 3 ml 12/06/20 12:00 12/07/20 15:27 Ipratropium-Albuterol 3 Ml Neb INHALATION 3 ml Q4H RASHIDA Administration Dexamethasone 6 mg 12/06/20 09:00 12/07/20 09:04 Dexamethasone 10 Mg/Ml Inj IVP 6 mg DAILY RASHIDA Administration Fentanyl 1,000 mcg/ Sodium 100 mls @ 0 mls/hr 12/05/20 15:45 12/07/20 13:24 Chloride IV 100 mcg/hr .Q0M RASHIDA 10 mls/hr Administration Protocol Per Protocol Midazolam HCl 100 mg/ Sodium 100 mls @ 0 mls/hr 12/05/20 15:45 12/07/20 09:35 Chloride IV 6 mg/hr .Q0M RASHIDA 6 mls/hr Administration Protocol Per Protocol Propofol 1,000 mg in 100 mls @ 0 mls/hr 12/05/20 17:45 12/07/20 15:49 Diprivan IV 40 mcg/kg/min .Q0M RASHIDA 25.04 mls/hr Administration Protocol Per Protocol Remdesivir 100 mg/ Sodium 100 mls @ 100 mls/hr 12/06/20 06:00 12/07/20 06:02 Chloride IV 12/09/20 06:59 Infused Q24H RASHIDA Infusion Cisatracurium Besylate 100 mg/ 100 mls @ 0 mls/hr 12/06/20 16:30 12/07/20 17:44 Sodium Chloride IV 3 mcg/kg/min .Q0M RASHIDA 18.78 mls/hr Administration Protocol Per Protocol Insulin Human Regular 250 unit 252.5 mls @ 0 mls/hr 12/07/20 12:30 12/07/20 13:38 / Sodium Chloride IV 9.12 unit/hr .Q0M RASHIDA 9.21 mls/hr Administration Protocol Per Protocol Sodium Chloride 500 mls @ 1 mls/hr 12/07/20 16:45 12/07/20 17:45 Sodium Chloride 0.9% IV 1 mls/hr .Q24H RASHIDA Administration Vitals/I&O/Wt Last Vital Signs Temp 98.2 F 12/07/20 18:00 Pulse 101 H 12/07/20 18:00 Resp 30 H 12/07/20 18:00 BP 149/61 12/07/20 18:00 Pulse Ox 93 12/07/20 18:00 12/07/20 12/07/20 12/07/20 06:59 14:59 22:59 Intake Total 1309.847 / 2782.506 1587.846 / 9138.599 7746.678 / 2712.524 Output Total 1000 / 1275 700 / 700 Balance 309.847 / 8908.932 1974.846 / 1587.846 424.678 / 2011.524 Weight last 48 hrs Weight 217 lb 1 oz Physical Exam Narrative: EXAM NARRATIVE: General: Patient is intubated sedated and paralyzed. The patient was examined before she was proned Neck: No JVD Respiratory: Auscultation: Coarse breath sound, crackles at lung bases Cardiovascular: Regular rate and rhythm, S1-S2 present, no murmur, no peripheral edema. Abdomen: Soft, sluggish bowel sound Skin: No rash Neuro: Unable to assess Urinary Catheter Management^: Stoddard: Cath Placed During This Visit: yes Reason for Continuing Indwelling Catheter: Accurate Measurement of Urinary Output in Critically Ill Patients Urinary Catheter Date of Insertion: 12/05/20 Urinary Catheter Time of Insertion: 16:05 Data Micro: Micro: Microbiology 12/05/20 16:45 Gram Stain - Final Sputum - Endotrac heal Tube Aspirate Sputum Culture - P reliminary 12/05/20 15:55 Blood Culture - Pr eliminary Blood NEGATIVE TO VERO E 12/05/20 15:50 Blood Culture - Pr eliminary Blood NEGATIVE TO VERO E Other Data: Attestation for Other Data: I personally reviewed and interpreted the following: Other data: I have reviewed the patient's laboratory, microbiologic and radiologic data. Microbiologic work-up is negative. The patient has hypokalemia and hyperglycemia. Urinary ketone is negative. Serum ketone was also negative. A&P Assessment and plan (1) ARDS (adult respiratory distress syndrome): This is 69-year-old lady with severe COVID-19. The patient has ARDS. The patient was proned yesterday and subsequently Unproned today. Unfortunately, after she was made supine, there had been significant deterioration of oxygenation. I have decided to prone the patient again. This time, we will continue with the proning session for 18 hours. The patient is currently on pressure control mechanical ventilation with an peak inspiratory pressure of 31, PEEP of 12, tidal volume in the mid 300s, FiO2 of 100% and respiratory rate of 30. Her minute ventilation currently is more than 11 L. Will obtain an arterial blood gas. The patient is approximately 3 L fluid positive. She is going to receive 60 mg IV of Lasix. She will also receive an additional 60 mg at midnight tonight. Status: Acute (2) COVID-19: The patient is currently on remdesivir, dexamethasone. Her CRP is 195, we are going to give her a dose of Tocilizumab. She is empirically covered with Levaquin and Zosyn. Status: Acute (3) Acute respiratory failure due to COVID-19: Status: Acute (4) Hyperglycemia: The patient is on insulin drip. The target blood sugar is 140-180mg/dl. Status: Acute (5) Hypokalemia: The patient is receiving 60 mEq of IV potassium. We will repeat a BMP at 12 AM and the patient will likely require more potassium supplementation. Status: Acute Coding Level of Care Code Acute Relations Director for [facility] Diagnoses ARDS (adult respiratory distress syndrome) J80 COVID-19 U07.1 Acute respiratory failure due to COVID-19 U07.1; J96.00 Hyperglycemia R73.9 Hypokalemia E87.6 Time Spent (min) 52
[2020-12-07] MEDS: piperacillin-tazobactam 3.375 GM in sodium chloride 0.9% (plus) 50 ML IV (18:36)
[2020-12-07] MEDS: famotidine 20 mg/2 mL INJ IVP (18:37)
[2020-12-07] MEDS: FUROsemide 10 mg/mL SDV 4mL 60 MG IVP (18:37)
[2020-12-07] MEDS: enoxaparin 30 mg/0.3 mL Syringe 40 MG SUBCUT (18:37)
[2020-12-07] MEDS: potassium chloride premix 100 ML 25 MEQ IV (18:38)
[2020-12-07 18:50] LABS: ABG PCO2 30.8 mmHg (35-45); ABG PH Result 7.32 (7.35-7.45); Arterial Blood Gas Hematocrit 41.4 % (37-47); Base Excess ABG -9.3 mmol/L (-2.0-2.0); Blood Gas Operator Identificat CAK; Blood Gas Sample Type Arterial; HCO3 ABG 15.7 mmol/L (22-26); Oxygen Device VENT; PO2 ABG 92.4 mmHg (80.0-100.0)
--- NOTE | 2020-12-07 18:54 | PM.ACPR ---
Procedure/Consent Time out: Time Out Performed: Yes Consent: Consent for Procedure: Emergency procedure Procedure Narrative: Name of the procedure: Right radial ultrasound-guided arterial catheter placement. Medications: The patient is sedated and paralyzed. Description of the procedure: The procedure was performed emergently. The Martinez test was performed to ascertain collateral circulation. The site was prepared using sterile technique. The right radial artery was identified under ultrasound guidance from pulsatility. Under ultrasound guidance the introducer needle was advanced till flash back was noted. Using Seldinger technique the left radial arterial line was inserted. The catheter was secured with 2-0 silk suture and Tegaderm. Complications: None. Acute Procedures Epistaxis Control: Time out performed: Yes
--- NOTE | 2020-12-07 20:06 | PC.NURSE ---
Patient's son called and asked for the charge nurse, then notified this nurse that he wants his sister off the contact list, this nurse notified him to call admissions in the morning who could better help with determining those arrangements., since the sister and son are both on the contact list
[2020-12-07] MEDS: potassium chloride premix 100 ML 50 MEQ IV (21:54)
[2020-12-07 22:16] LABS: Glucose Point of Care 255 mg/dL (70-110)
[2020-12-07 22:28] LABS: Glucose Point of Care 271 mg/dL (70-110)
[2020-12-07 23:54] LABS: Blood Urea Nitrogen 21 mg/dL (8-23); Carbon Dioxide 20 mmol/L (22-29); Chloride 109 mmol/L (98-107); Glucose 272 mg/dL (65-115); Osmolality Calculated 309 mOsm/kg (285-295); Sodium 143 mmol/L (136-145)
[2020-12-07 23:58] LABS: Anion Gap 18.1 (5-19); Potassium 4.1 mmol/L (3.5-5.1)
[2020-12-08] VITALS (64 sets, daily range): BP systolic 88–149; BP diastolic 44–87; PULSE 89–118; RESP 30–33; TEMP 36.9–37.2; O2SAT 84–90; BMI 39.6
[2020-12-08] MEDS: propofol 1,000 MG/100 ML INJ 31.3 MG IV ×2 (00:48→07:39)
[2020-12-08 02:03] LABS: Glucose Point of Care 252 mg/dL (70-110)
[2020-12-08 02:03] LABS: Glucose Point of Care 294 mg/dL (70-110)
[2020-12-08 02:03] LABS: Glucose Point of Care 257 mg/dL (70-110)
[2020-12-08] MEDS: ipratropium-albuterol 3 mL Neb INHALATION ×4 (03:29→20:31)
[2020-12-08] MEDS: piperacillin-tazobactam 3.375 GM in sodium chloride 0.9% (plus) 50 ML IV ×3 (03:45→20:11)
[2020-12-08 04:17] LABS: Glucose Point of Care 310 mg/dL (70-110)
[2020-12-08 04:17] LABS: Glucose Point of Care 294 mg/dL (70-110)
[2020-12-08 04:46] LABS: ABG PH Result 7.39 (7.35-7.45); Alveolar-Arterial Oxygen Gradi 80.3 mmHg (5-10); Base Excess ABG -3.1 mmol/L (-2.0-2.0); Blood Gas Operator Identificat JB; Blood Gas Sample Site Not specified; Blood Gas Sample Type Arterial; HCO3 ABG 21.2 mmol/L (22-26); HGB O2 Sat 86.6 % (95-100); Oxygen Device VENT; Oxygen Saturation ABG 87.5; PO2 ABG 49.9 mmHg (80.0-100.0); Potassium Level - ABG 3.1 mmol/L (3.5-5.0); Total Hemoglobin 13.7 g/dL (12-16)
[2020-12-08] MEDS: insulin regular-human 250 UNIT in sodium chloride 0.9% 250 ML 38 UNIT IV (04:50)
[2020-12-08 04:59] LABS: Glucose Point of Care 292 mg/dL (70-110)
[2020-12-08 05:16] LABS: Hemoglobin 12.5 g/dL (11.5-15.3); Mean Corpuscular HGB Conc 32.1 g/dL (30.0-36.0); Mean Corpuscular Hemoglobin 28.5 pg (28.0-34.0); Mean Platelet Volume 12.2 fL (7.4-10.4); Platelet Count 233 10^3/cmm (130-400); Red Blood Count 4.38 10^6/uL (4.1-5.3); Red Cell Distribution Width 16.3 % (12.1-15.1)
[2020-12-08] MEDS: enoxaparin 30 mg/0.3 mL Syringe 40 MG SUBCUT (05:45)
[2020-12-08] MEDS: famotidine 20 mg/2 mL INJ IVP ×2 (05:46→17:34)
[2020-12-08 05:48] LABS: Albumin Level 1.7 g/dL (3.5-5.2); Alkaline Phosphatase 97 IU/L (35-105); Blood Urea Nitrogen 22 mg/dL (8-23); Calcium 6.9 mg/dL (8.5-10.5); Carbon Dioxide 20 mmol/L (22-29); Chloride 110 mmol/L (98-107); Globulin 3.2 g/dL (1.3-4.6); Glucose 299 mg/dL (65-115); Osmolality Calculated 316 mOsm/kg (285-295); Sodium 146 mmol/L (136-145); Total Bilirubin 0.5 mg/dL (0.15-1.2); Total Protein 4.9 g/dL (6.6-8.7)
[2020-12-08 05:53] LABS: Anion Gap 19.3 (5-19); Potassium 3.3 mmol/L (3.5-5.1)
[2020-12-08] MEDS: remdesivir 100 MG in sodium chloride 0.9% (100 ml) 100 ML IV (06:01)
[2020-12-08 06:05] LABS: Alanine Aminotransferase < 5 U/L (0-33); Aspartate Amino Transferase 68 U/L (0-32)
[2020-12-08 06:22] LABS: Glucose Point of Care 220 mg/dL (70-110)
[2020-12-08 06:31] LABS: Slide Review Slide Review Perform
[2020-12-08 06:35] LABS: Absolute Segmented Neutrophil 3.8 10/cmm (1.6-7.1); Band Neutrophils Absolute 3.8 10^3/cmm (0.0-1.2); Monocytes Absolute 0.2 10^3/cmm (0.1-0.6); Segmented Neutrophils 48 %; Total Cells Counted 100 (0-100)
[2020-12-08 06:36] LABS: Absolute Neutrophil 7.6 10^3/cmm (1.4-6.5); Platelet Estimate Normal (Normal); Poikilocytosis 2+
[2020-12-08 06:37] LABS: Eosinophils 0 %; Lymphocytes 0 %; Lymphocytes Absolute 0.1 10^3/cmm (1.2-3.4)
[2020-12-08 07:34] LABS: Glucose Point of Care 154 mg/dL (70-110)
[2020-12-08] MEDS: cisatracurium 100 MG in sodium chloride 0.9% 50 ML 12.52 MG IV ×2 (07:50→12:31)
[2020-12-08] MEDS: bumetanide 0.25 mg/mL SDV 10 mL 2 MG IV ×2 (08:12→17:35)
[2020-12-08] MEDS: dexamethasone 10 mg/mL INJ 6 MG IVP ×3 (08:12→22:34)
[2020-12-08] MEDS: potassium chloride premix 100 ML 25 MEQ IV ×2 (08:13→12:33)
--- NOTE | 2020-12-08 09:14 | PC.NURSE ---
Shift Note Frequent safety and comfort rounds continue. Orders and/or nursing care completed as indicated. Patient monitored for response to intervention and treatment(s). Education provided includes[ventilation, covid 19, sedation and sedation vacation]. Patient and/or senior patient account representative [verbally stated they understood]. Will continue to monitor. Received bed side shift report from off going nurse. Pt's plan of care reviewed. Pt is resting in bed. Respirations are even and unlabored. No s/sx of distress noted. Pt is currently on the ventilator at 100% with an oxygen saturation of 88%. Pt is under sedation and paralytics. TOF 2/4 on 9 miliamps. Pt is currently vent compliant but when stimulation she started to breath over the vent. BIS showing 29. Family was call and updated on pt's current status and plan of care. Bed in lowest and locked position, call light within reach, x's 2 rails up. Will continue to monitor pt.
[2020-12-08 09:23] LABS: Glucose Point of Care 102 mg/dL (70-110)
--- NOTE | 2020-12-08 10:23 | XR_ITS ---
WS: [id number] Portable AP prone chest, 12/08/2020 Clinical Data: respiratory failure Comparison: Portable chest, 12/06/2020. Findings: Endotracheal tube, nasogastric tube and right internal jugular venous catheter are in good position. The bilateral patchy pulmonary opacities have not changed. There are monitor leads on the c hest wall. XR/XR chest 1V portable [id number] Impression: 1. No change in patchy bilateral pulmonary opacities consistent with pneumonia. 2. Satisfactory position of multiple tubes.
--- NOTE | 2020-12-08 10:32 | PC.NURSE ---
Pt was given 2mg bumex at beginning of shift. PT has put out minimal urine out put. Irrigated pt's langley with 60mL of sterile irrigation fluid. Only received back what I put in. Notified Dr. Stover. New orders given.
--- NOTE | 2020-12-08 11:03 | PC.SOCIAL ---
IM follow up explained to Son and he verbalized understanding no questions voiced.
[2020-12-08] MEDS: propofol 1,000 MG/100 ML INJ 25.04 MG IV ×3 (11:37→21:40)
[2020-12-08 11:53] LABS: Glucose Point of Care 87 mg/dL (70-110)
[2020-12-08] MEDS: budesonide 0.5 mg/2 mL Neb INHALATION ×2 (12:05→20:31)
[2020-12-08 13:32] LABS: Glucose Point of Care 96 mg/dL (70-110)
[2020-12-08 13:34] LABS: Glucose Point of Care 97 mg/dL (70-110)
[2020-12-08 13:34] LABS: Glucose Point of Care 100 mg/dL (70-110)
--- NOTE | 2020-12-08 14:33 | PC.RESP ---
RT Shift Note Frequent safety and respiratory rounds continue. Orders completed as indicated. Patient monitored pre and post treatments throughout shift. Patient [Did.] tolerate treatments appropriately. Condition [.DidNotChange]. Patient and/or parts representative educated on respiratory treatment and medications. Patient and/or parts representative [unable to comprehend]. Will continue to monitor patient progress.
[2020-12-08 15:35] LABS: Glucose Point of Care 119 mg/dL (70-110)
[2020-12-08 16:04] LABS: Glucose Point of Care 124 mg/dL (70-110)
[2020-12-08] MEDS: enoxaparin 40 mg/0.4 mL Syringe SUBCUT (17:35)
[2020-12-08] MEDS: levofloxacin-dextrose 5 % 750 MG/150 ML PREMIX 100 MG IV (17:35)
--- NOTE | 2020-12-08 17:50 | PM.PN ---
Subjective Subjective: Interval history: The patient was seen multiple times throughout the day. Unfortunately, her oxygenation has worsened since she was proned yesterday. Her oxygen saturation is hovering in the high 80s. She is on pressure control mechanical ventilation with 100% FiO2. A chest x-ray and prone positioning today did not reveal any evidence of pneumothorax. The patient is undergoing aggressive diuresis. Medications: Reviewed: Yes Vitals/I&O/Wt Last Vital Signs Temp 98.8 F 12/08/20 13:30 Pulse 108 H 12/08/20 16:00 Resp 30 H 12/08/20 17:46 BP 136/70 12/08/20 16:00 Pulse Ox 88 L 12/08/20 17:46 12/08/20 12/08/20 12/08/20 06:59 14:59 22:59 Intake Total 601.120 / 3854.524 792.260 / 792.260 250 / 1042.260 Output Total 350 / 2100 1000 / 1000 Balance 251.120 / 1754.524 792.260 / 792.260 -750 / 42.260 Weight last 48 hrs Weight 217 lb 1 oz Weight 217 lb 1 oz Physical Exam Narrative: EXAM NARRATIVE: General: Patient is intubated sedated and paralyzed. Currently in prone position Respiratory: Auscultation: Bilateral diffuse wheezing and rhonchi Cardiovascular: Regular rate and rhythm, S1-S2 present, no murmur, no peripheral edema. Abdomen: Soft, sluggish bowel sound Skin: No rash Neuro: Unable to assess Urinary Catheter Management^: Stoddard: Cath Placed During This Visit: yes Reason for Continuing Indwelling Catheter: Accurate Measurement of Urinary Output in Critically Ill Patients Urinary Catheter Date of Insertion: 12/05/20 Urinary Catheter Time of Insertion: 16:05 Data : 12/08/20 04:28 12/08/20 04:28 Micro: Microbiology 12/07/20 13:57 Urine Culture - Preliminary Urine,Clean Catch 12/05/20 16:45 Gram Stain - Final Sputum - Endotracheal Tube Aspirate Sputum Culture - Final Pseudomonas aeruginosa Attestation for Other Data: I personally reviewed and interpreted the following: Other data: I have reviewed the patient's laboratory, microbiologic and radiologic data. The chest x-ray did not reveal any pneumothorax today. The endotracheal aspirate culture is growing Pseudomonas which is sensitive to Zosyn. A&P Assessment and plan (1) ARDS (adult respiratory distress syndrome): This is 69-year-old lady with severe COVID-19. The patient has ARDS. The patient was proned yesterday for her second session. Unfortunately, The patient is currently on pressure control mechanical ventilation with an peak inspiratory pressure of 28, PEEP of 12, tidal volume in the mid 300s, FiO2 of 100% and respiratory rate of 30. Given her low oxygen saturation with the current setting in prone position, I think the chances of her deteriorating rapidly is significant if any attempt is made to unprone her. We will continue with the current ventilator settings. She will stay in prone position overnight. Status: Acute (2) COVID-19: The patient is currently on remdesivir, dexamethasone. I am going to increase the dose of dexamethasone to 6 mg every 6 hours. She received a dose of Tocilizumab on December 07. She is empirically covered with Levaquin and Zosyn. Endotracheal aspirate culture is positive for Pseudomonas which is sensitive to Zosyn. Status: Acute (3) Acute respiratory failure due to COVID-19: Status: Acute (4) Hyperglycemia: The patient is on insulin drip. The blood sugar has been better controlled. Status: Acute (5) Hypokalemia: Patient has received 2 mg of Bumex this morning and she is receiving a second 2 mg dose this evening. We will get a BMP and replete the electrolytes. Status: Acute Additional A&P Information Overall, the patient's prognosis is is poor. If there is no significant improvement in her status by tomorrow I will have a conversation with her family members. Attestations Medical Necessity Statement*: Will defer to the primary team Coding Level of Care Code Acute Salvationist for [facility] Diagnoses ARDS (adult respiratory distress syndrome) J80 COVID-19 U07.1 Acute respiratory failure due to COVID-19 U07.1; J96.00 Hyperglycemia R73.9 Hypokalemia E87.6 Time Spent (min) 42
--- NOTE | 2020-12-08 18:51 | PM.PN ---
Subjective Subjective: Interval history: 69-year-old female who was brought in by EMS intubated and being oxygen by bag valve for respiratory failure. Apparently oxygen saturations were in the 50s. She tested positive for Covid roughly around November 28. Patient was placed on ventilator. In the ER patient had a CTA which was negative for PE. She has initiated remdesivir as well as Decadron. AC/340/22/12/85%, oxygen saturation remained in mid to high 80s. Afebrile overnight Medications: Reviewed: Yes Vitals/I&O/Wt Last Vital Signs Temp 98.8 F 12/08/20 18:00 Pulse 106 H 12/08/20 18:00 Resp 30 H 12/08/20 18:00 BP 126/76 12/08/20 18:00 Pulse Ox 89 L 12/08/20 18:00 12/08/20 12/08/20 12/08/20 06:59 14:59 22:59 Intake Total 601.120 / 3854.524 792.260 / 792.260 250 / 1042.260 Output Total 350 / 2100 1000 / 1000 Balance 251.120 / 1754.524 792.260 / 792.260 -750 / 42.260 Weight last 48 hrs Weight 98.458 kg Weight 98.458 kg Physical Exam Const: OTHER: sedated and intubated Chest: COMMONS NORMALS: normal inspection of the chest Resp: COMMON NORMALS: normal respiratory effort, No retractions and clear to auscultation bilaterally AUSCULTATION: clear to auscultation bilaterally OTHER: coarse breath sounds Cardio: COMMON NORMALS: regular rate and regular rhythm RATE: regular rate RHYTHM: regular rhythm GI: COMMON NORMALS: Soft to palpation PALPATION: Yes Soft to palpation Extremity: COMMON NORMALS: normal to inspection and no pedal edema Skin: COMMON NORMALS: no rashes or lesions noted GENERAL SKIN EXAM: no rashes or lesions noted Urinary Catheter Management^: Stoddard: Cath Placed During This Visit: yes Reason for Continuing Indwelling Catheter: Accurate Measurement of Urinary Output in Critically Ill Patients Urinary Catheter Date of Insertion: 12/05/20 Urinary Catheter Time of Insertion: 16:05 Data : 12/08/20 04:28 12/08/20 04:28 Micro: Microbiology 12/07/20 13:57 Urine Culture - Preliminary Urine,Clean Catch 12/05/20 16:45 Gram Stain - Final Sputum - Endotracheal Tube Aspirate Sputum Culture - Final Pseudomonas aeruginosa A&P Assessment and plan (1) Diabetes: Status: Acute (2) Acidosis: Status: Acute (3) COVID-19: Status: Acute (4) Respiratory failure: Status: Acute Additional A&P Information #respiratory failure #ARDS #Covid 19 pneumonia --completed first proning session this AM --current vent settings AC/340/22/12/85% --continue decadron, remdesivir D3/4 --trend labs --continue vitamin C,D, Zinc --elevated procalcitonin --on zosyn --pulmonary medicine on board --abg/chest-xray in am --May consider gentle diuresis #Diabetes -AIC 7.5 -insulin gtt started #elevated d dimer --cta negative for PE DVT: Lovenox Attestations Medical Necessity Statement*: Will require further hospitalization for management of covid19 related respiratory failure Time Spent in Patient Care: Greater than 35 minutes (>than 50% of time spent in counselling and/or direct pt care on unit). Coding Level of Care Code Acute Customer Care Associate for g [facility]wd Diagnoses Diabetes E11.9 Acidosis E87.2 COVID-19 U07.1 Respiratory failure J96.90
[2020-12-08 20:23] LABS: Glucose Point of Care 124 mg/dL (70-110)
[2020-12-08 20:23] LABS: Glucose Point of Care 120 mg/dL (70-110)
[2020-12-08 20:23] LABS: Glucose Point of Care 150 mg/dL (70-110)
[2020-12-08 20:55] LABS: Blood Urea Nitrogen 31 mg/dL (8-23); Calcium 7.4 mg/dL (8.5-10.5); Carbon Dioxide 23 mmol/L (22-29); Chloride 112 mmol/L (98-107); Glucose 128 mg/dL (65-115); Osmolality Calculated 314 mOsm/kg (285-295); Sodium 148 mmol/L (136-145)
[2020-12-08 21:18] LABS: Anion Gap 17.5 (5-19); Potassium 4.5 mmol/L (3.5-5.1)
[2020-12-08] MEDS: cisatracurium 100 MG in sodium chloride 0.9% 50 ML 9.39 MG IV (21:40)
[2020-12-09] VITALS (48 sets, daily range): BP systolic 121–164; BP diastolic 62–86; PULSE 75–117; RESP 30–32; TEMP 36.6–36.8; O2SAT 90–96; BMI 39.6
--- NOTE | 2020-12-09 | XR_ITS ---
WS: [id number] PORTABLE CHEST HISTORY: RESP DISTRESS COMPARISON: 12/08/2020 Radiograph obtained in prone position. Nasogastric and endotracheal and RIGHT central line are in good positions. Continued bilateral opacifications in a batwing distribution throughout both lungs. No pleural effusi on or pneumothorax. Cardiac size: Normal. Mediastinum/Aorta: Widened mediastinum due to opacifications in the lungs. No osseous abnormality seen. XR/XR chest 1V portable [id number] IMPRESSION: 1. No change in the diffuse bilateral pulmonary opacifications. Edema versus p neumonia. 2. Nasogastric, endotracheal and RIGHT IJ line remain in good positions.
[2020-12-09] MEDS: piperacillin-tazobactam 3.375 GM in sodium chloride 0.9% (plus) 50 ML IV ×3 (02:34→19:26)
[2020-12-09] MEDS: ipratropium-albuterol 3 mL Neb INHALATION ×4 (04:16→20:42)
[2020-12-09] MEDS: propofol 1,000 MG/100 ML INJ 18.78 MG IV (04:23)
[2020-12-09] MEDS: dexamethasone 10 mg/mL INJ 6 MG IVP ×4 (04:24→22:34)
[2020-12-09 05:43] LABS: ABG PCO2 41.4 mmHg (35-45); ABG PH Result 7.38 (7.35-7.45); Arterial Blood Gas Hematocrit 48.3 % (37-47); Base Excess ABG -0.5 mmol/L (-2.0-2.0); Blood Gas Allen Test Pos; Blood Gas Operator Identificat JB; Blood Gas Sample Site Radial, right; Blood Gas Sample Type Arterial; HCO3 ABG 24.6 mmol/L (22-26); Oxygen Device VENT; PO2 ABG 62.3 mmHg (80.0-100.0)
[2020-12-09 06:24] LABS: Glucose Point of Care 138 mg/dL (70-110)
[2020-12-09 06:24] LABS: Glucose Point of Care 144 mg/dL (70-110)
[2020-12-09 06:24] LABS: Glucose Point of Care 149 mg/dL (70-110)
[2020-12-09 06:24] LABS: Glucose Point of Care 125 mg/dL (70-110)
[2020-12-09 06:24] LABS: Glucose Point of Care 130 mg/dL (70-110)
[2020-12-09 06:24] LABS: Glucose Point of Care 145 mg/dL (70-110)
[2020-12-09 06:24] LABS: Glucose Point of Care 148 mg/dL (70-110)
[2020-12-09 06:24] LABS: Glucose Point of Care 144 mg/dL (70-110)
[2020-12-09] MEDS: famotidine 20 mg/2 mL INJ IVP ×2 (06:28→17:48)
[2020-12-09] MEDS: enoxaparin 40 mg/0.4 mL Syringe SUBCUT ×2 (06:29→17:48)
[2020-12-09] MEDS: remdesivir 100 MG in sodium chloride 0.9% (100 ml) 100 ML IV (06:29)
[2020-12-09 06:50] LABS: Basophils % 0.2 %; Eosinophils % 0.3 %; Hematocrit 41.6 % (37.0-47.0); Hemoglobin 13.4 g/dL (11.5-15.3); Lymphocytes # 0.6 10^3/uL (0.8-4.8); Lymphocytes % 5.5 %; Mean Corpuscular HGB Conc 32.2 g/dL (30.0-36.0); Mean Corpuscular Hemoglobin 28.5 pg (28.0-34.0); Mean Corpuscular Volume 88.3 fl (81-99); Monocytes # 0.5 10^3/uL (0.2-0.9); Monocytes % 4.7 %; Neutrophils # 9.73 10^3/uL (1.8-7.7); Neutrophils % 86.3 %; Nucleated Red Blood Cells # 0.1 /100WBC; Nucleated Red Blood Cells % 0.4 %; Platelet Count 288 10^3/cmm (130-400); Red Blood Count 4.71 10^6/uL (4.1-5.3); Red Cell Distribution Width 16.6 % (12.1-15.1); White Blood Count 11.3 10^3/uL (4.0-10.0)
[2020-12-09 07:26] LABS: Alanine Aminotransferase 22 U/L (0-33); Albumin Level 2.5 g/dL (3.5-5.2); Alkaline Phosphatase 105 IU/L (35-105); Aspartate Amino Transferase 24 U/L (0-32); Blood Urea Nitrogen 35 mg/dL (8-23); C Reactive Protein 117.7 mg/L (0.0-4.9); Calcium 7.3 mg/dL (8.5-10.5); Carbon Dioxide 22 mmol/L (22-29); Chloride 112 mmol/L (98-107); Ferritin 450 ng/mL (15-150); Globulin 3.1 g/dL (1.3-4.6); Glucose 136 mg/dL (65-115); Magnesium 1.9 mg/dL (1.7-2.3); Osmolality Calculated 316 mOsm/kg (285-295); Sodium 148 mmol/L (136-145); Total Bilirubin 0.4 mg/dL (0.15-1.2); Total Protein 5.6 g/dL (6.6-8.7)
[2020-12-09 07:27] LABS: Anion Gap 18.7 (5-19); Potassium 4.7 mmol/L (3.5-5.1)
[2020-12-09 08:06] LABS: Slide Review Slide Review Perform
[2020-12-09] MEDS: insulin regular-human 250 UNIT in sodium chloride 0.9% 250 ML IV (08:10)
[2020-12-09] MEDS: cisatracurium 100 MG in sodium chloride 0.9% 50 ML 9.39 MG IV ×2 (08:10→19:38)
[2020-12-09] MEDS: budesonide 0.5 mg/2 mL Neb INHALATION ×2 (08:51→20:42)
[2020-12-09] MEDS: propofol 1,000 MG/100 ML INJ 31.3 MG IV ×5 (09:41→22:52)
[2020-12-09 10:04] LABS: Procalcitonin 2.14 ng/mL (0-0.5)
[2020-12-09] MEDS: linezolid premix 600 MG/300 ML PREMIX 300 MG IV ×2 (11:32→22:34)
--- NOTE | 2020-12-09 12:50 | P.PN_ITS ---
Subjective Subjective: Interval history: The patient was seen and examined. I decided to keep her prone overnight. Her oxygen saturation revealed some improvement. She has been diuresing well. We will attempt to unprone her today. Her dose of dexamethasone was increased yesterday. Medications: Reviewed: Yes Vitals/I&O/Wt Last Vital Signs Temp 98.8 F 12/08/20 18:00 Pulse 100 12/09/20 08:58 Resp 30 H 12/09/20 12:06 BP 147/66 12/09/20 06:30 Pulse Ox 96 12/09/20 12:06 12/08/20 12/09/20 12/09/20 22:59 06:59 14:59 Intake Total 742.915 / 1543.308 338.952 / 1882.260 307.485 / 307.485 Output Total 1000 / 1000 1550 / 2550 Balance -257.085 / 543.308 -1211.048 / -667.740 307.485 / 307.485 Weight last 48 hrs Weight 217 lb 1 oz Weight 217 lb 1 oz Physical Exam Narrative: EXAM NARRATIVE: General: Patient is intubated sedated and paralyzed. Currently in prone position Respiratory: Auscultation: Reduced breath sound bilaterally, no crackles or wheezing, occasional rhonchi Cardiovascular: Regular rate and rhythm, S1-S2 present, no murmur, no peripheral edema. Abdomen: Soft, sluggish bowel sound Skin: No rash Neuro: Unable to assess Urinary Catheter Management^: Stoddard: Cath Placed During This Visit: yes Reason for Continuing Indwelling Catheter: Accurate Measurement of Urinary Output in Critically Ill Patients Urinary Catheter Date of Insertion: 12/05/20 Urinary Catheter Time of Insertion: 16:05 Data : 12/09/20 06:20 12/09/20 06:20 Micro: Microbiology 12/08/20 17:20 Gram Stain - Final Sputum - Endotracheal Tube Aspirate 12/07/20 13:57 Urine Culture - Final Urine,Clean Catch 12/05/20 16:45 Gram Stain - Final Sputum - Endotracheal Tube Aspirate Sputum Culture - Final Pseudomonas aeruginosa Attestation for Other Data: I personally reviewed and interpreted the following: Other data: I have reviewed the patient's laboratory, microbiologic and radiologic data A&P Assessment and plan (1) ARDS (adult respiratory distress syndrome): This is 69-year-old lady with severe COVID-19. The patient has ARDS. The patient has been kept in prone position for nearly 40 hours. This was done because of her very tenuous respiratory status. The patient is currently on pressure control mechanical ventilation with an peak inspiratory pressure of 28, PEEP of 12, tidal volume in the mid 300s, FiO2 of 100% and respiratory rate of 30. We are going to unprone her today. If the patient can tolerate she can stay in supine position for 4 to 6 hours followed by 18 hours of prone positioning again. I have put the patient on standing diuretics. This will likely result in h ypokalemia and hyponatremia. The electrolytes needs to be checked every 12 hours and repleted accordingly. The patient will likely start requiring free water flush through the OG tube. She can also be started on trickle tube feed tomorrow, 10 to 15 mL/h without increasing. Status: Acute (2) COVID-19: The patient is currently on remdesivir, dexamethasone. She is on dexamethasone 6 mg every 6 hours. This can be tapered down from tomorrow. She received a dose of Tocilizumab on December 07. She is empirically covered with Levaquin and Zosyn. I am going to add linezolid as well. Especially with the increased dexamethasone dose. The Levaquin can be stopped after 5 days. The Zosyn and linezolid can be continued for a total of 10 days. Endotracheal aspirate culture is positive for Pseudomonas which is sensitive to Zosyn. Status: Acute (3) Acute respiratory failure due to COVID-19: Status: Acute (4) Hyperglycemia: The patient is on insulin drip. The blood sugar has been better controlled. Status: Acute (5) Hypokalemia: Standing Bumex dose is for 2 days. After that this can be reevaluated and adjusted. Status: Acute Additional A&P Information Overall, the patient's prognosis is is poor. If there is no significant improvement in her status by tomorrow I will have a conversation with her family members. Attestations Medical Necessity Statement*: Will defer to the primary team Coding Level of Care Code Acute Concrete Float Maker for [facility] Diagnoses ARDS (adult respiratory distress syndrome) J80 COVID-19 U07.1 Acute respiratory failure due to COVID-19 U07.1; J96.00 Hyperglycemia R73.9 Hypokalemia E87.6 Time Spent (min) 33
[2020-12-09] MEDS: sodium chloride 0.9% (plus) 50 ML 12.5 ML (15:16)
[2020-12-09] MEDS: bumetanide 0.25 mg/mL SDV 10 mL 2 MG IV (17:48)
[2020-12-09] MEDS: levofloxacin-dextrose 5 % 750 MG/150 ML PREMIX 100 MG IV (17:49)
--- NOTE | 2020-12-09 18:13 | PC.NURSE ---
Shift Note Frequent safety and comfort rounds continue. Orders and/or nursing care completed as indicated. Patient monitored for response to intervention and treatment(s). Education provided includes[ventilator support, prone positioning, patient status and update to family]. Patient and/or business center representative [receptive to teaching]. Will continue to monitor. Pt turned to supine position at approximately 1500. Dr. Stover wants supine for at least 4-5 hours and the placed in prone position at around 2000 tonight.
--- NOTE | 2020-12-09 18:32 | P.PN_ITS ---
Subjective Subjective: Interval history: Hospital Course 69 year old female who was brought in by EMS intubated and being oxygenated by bag valve for respiratory failure. Apparently patient's oxygen saturation were 50%. She tested positive Covid roughly around November 28. Laboratory workup on arrival showed a WBC of 6.4, hemoglobin of 14.3, hematocrit 45.5 and a platelet count of 231. D-dimer 1.23. Arterial blood gases showed a pH of 7.29, pCO2 41.2, PO2 of 69.8 and a bicarb of 19.9 on 100% FiO2, 400 tidal volume, 10 of PEEP. Sodium 141, potassium 3.6, chloride 105, bicarb 22, BUN 13 and creatinine 0.6. Glucose of 210. Lactic acid of 1.2. AST of 50, ALT of 20, alkaline phosphatase 137. C reactive protein of 163. COVID-19 rapid antigen and PCR positive. Imaging studies included a CT of chest which showed bilateral consolidations throughout both lungs without any evidence of acute pulmonary embolism. Patient was admitted to ICU, sedation with fentanyl, versed and propofol. Started on remdesivir 5 day protocol, decahedron 6 mg IV q6hr and on 12/07 was given Actemra. After adequate sedation paralytics was initiated. ARDS Proning protocol was however initial attempts to reposition to supine were unsuccessful due to profound hypoxia. She remained prone for up to 40hr. Continued to require 100 perfect FIO2. Trial of lasix was given. 12/09/2020 Patient was transitioned to supine. Propofol 50mcg, fentanyl 100mcg, and nimbex T-Max 98.3, U/O 0.19 ml/kg/hr Net positive 2.4L since admission Medications: Reviewed: Yes Vitals/I&O/Wt Last Vital Signs Temp 98.3 F 12/09/20 16:00 Pulse 88 12/09/20 18:00 Resp 30 H 12/09/20 18:05 BP 128/68 12/09/20 18:00 Pulse Ox 93 12/09/20 18:05 12/09/20 12/09/20 12/09/20 06:59 14:59 22:59 Intake Total 338.952 / 1882.260 735.414 / 735.414 275.899 / 1011.313 Output Total 1550 / 2550 850 / 850 Balance -1211.048 / -667.740 -114.586 / -114.586 275.899 / 161.313 Weight last 48 hrs Weight 98.458 kg Weight 98.458 kg Physical Exam Const: OTHER: sedated and intubated Chest: COMMONS NORMALS: normal inspection of the chest Resp: COMMON NORMALS: normal respiratory effort, No retractions and clear to auscultation bilaterally AUSCULTATION: clear to auscultation bilaterally OTHER: coarse breath sounds Cardio: COMMON NORMALS: regular rate and regular rhythm RATE: regular rate RHYTHM: regular rhythm GI: COMMON NORMALS: Soft to palpation PALPATION: Yes Soft to palpation Extremity: COMMON NORMALS: normal to inspection and no pedal edema Skin: COMMON NORMALS: no rashes or lesions noted GENERAL SKIN EXAM: no rashes or lesions noted Urinary Catheter Management^: Stoddard: Cath Placed During This Visit: yes Reason for Continuing Indwelling Catheter: Accurate Measurement of Urinary Output in Critically Ill Patients Urinary Catheter Date of Insertion: 12/05/20 Urinary Catheter Time of Insertion: 16:05 Data : 12/09/20 06:20 12/09/20 06:20 Micro: Microbiology 12/08/20 17:20 Gram Stain - Final Sputum - Endotracheal Tube Aspirate 12/07/20 13:57 Urine Culture - Final Urine,Clean Catch A&P Assessment and plan (1) Diabetes: Status: Acute (2) Acidosis: Status: Acute (3) COVID-19: Status: Acute (4) Respiratory failure: Status: Acute Additional A&P Information Acute Respiratory Distress Syndrome due to COVID-19 Pneumonia * On mechanical ventilation FIO2 100%, PEEP 14, TV 350 * Deep sedation protocol - Fentanyl 100 mcg, Propofol 50 * Nimbex - BIS monitoring, Maintain - 40 while paralyzed. * Supine for 6 -> return to Prone for 18hr * Initiated on Diuresis - Bumex 2 mg IV q12hr - Net + 2.7L today * Continue Decadron 6 mg IV q6hr - wean to q8 * Budsonide 0.5 mg INH BID, Duoneb q6hr Sc * Empirically on Abx - Levofloxacin 750 mg IV q24h, Zosyn 3.375g IV q6hr. Zyvox 600 mg IV q12hr added. * COVID-19 labs 12/09. D-dimer 2.5, CRP 117.7, Pro-linda 2.15, Ferritin 450 * Repeat Chest x-ray / ABG in am * Pulmonary Medicine on board Hypernatremia * Na 148, free 02 deficit * On free h20 flushes * On bumex - may increase * Repeat BMP in am Diabetes Mellitus * Q6hr glucose checks * Continue current insulin orders GI ppx * Pepcid 20 mg IV BID DVT ppx * Lovenox 40 mg SQ daily Prognosis: Guarded Attestations Medical Necessity Statement*: Will require further hospitalization for management of covid19 resp failure. Time Spent in Patient Care: Greater than 35 minutes (>than 50% of time spent in counselling and/or direct pt care on unit) . Critical Care Time: Critical Care Time (min): 55 Coding Level of Care Code Acute Quality Assurance Inspector for g Fwd Diagnoses Diabetes E11.9 Acidosis E87.2 COVID-19 U07.1 Respiratory failure J96.90
[2020-12-10] VITALS (90 sets, daily range): BP systolic 109–185; BP diastolic 54–110; PULSE 57–116; RESP 30; TEMP 34.8–36.2; O2SAT 88–943; BMI 38.9
[2020-12-10] MEDS: piperacillin-tazobactam 3.375 GM in sodium chloride 0.9% (plus) 50 ML IV ×3 (02:13→18:22)
[2020-12-10] MEDS: propofol 1,000 MG/100 ML INJ 31.3 MG IV ×6 (02:13→22:03)
[2020-12-10] MEDS: ipratropium-albuterol 3 mL Neb INHALATION ×4 (03:22→20:38)
--- NOTE | 2020-12-10 04:38 | PC.NURSE ---
Addendum entered by Shyanne Egan RN 12/10/20 04:42: Witnessed waste. Original Note: VERSED WASTE 45 mL versed drip wasted with GEORGE Ahumada.
[2020-12-10 04:52] LABS: ABG PCO2 39.4 mmHg (35-45); ABG PH Result 7.41 (7.35-7.45); Arterial Blood Gas Hematocrit 42.9 % (37-47); Base Excess ABG 0.4 mmol/L (-2.0-2.0); Blood Gas Allen Test Pos; Blood Gas Operator Identificat JB; Blood Gas Sample Site Radial, right; Blood Gas Sample Type Arterial; Oxygen Device VENT
[2020-12-10 04:58] LABS: Basophils # 0.1 10^3/uL (0.0-0.1); Basophils % 0.8 %; Eosinophils % 0.2 %; Hematocrit 39.8 % (37.0-47.0); Hemoglobin 13.1 g/dL (11.5-15.3); Lymphocytes # 0.7 10^3/uL (0.8-4.8); Lymphocytes % 5.8 %; Mean Corpuscular HGB Conc 32.9 g/dL (30.0-36.0); Mean Corpuscular Hemoglobin 28.9 pg (28.0-34.0); Mean Corpuscular Volume 87.7 fl (81-99); Mean Platelet Volume 12.1 fL (7.4-10.4); Monocytes # 1.1 10^3/uL (0.2-0.9); Monocytes % 9.1 %; Neutrophils # 9.57 10^3/uL (1.8-7.7); Neutrophils % 77.7 %; Nucleated Red Blood Cells # 0.1 /100WBC; Nucleated Red Blood Cells % 0.6 %; Platelet Count 302 10^3/cmm (130-400); Red Blood Count 4.54 10^6/uL (4.1-5.3); Red Cell Distribution Width 16.5 % (12.1-15.1); White Blood Count 12.3 10^3/uL (4.0-10.0)
[2020-12-10] MEDS: enoxaparin 40 mg/0.4 mL Syringe SUBCUT ×2 (05:05→18:22)
[2020-12-10 05:14] LABS: Albumin Level 2.3 g/dL (3.5-5.2); Alkaline Phosphatase 108 IU/L (35-105); Blood Urea Nitrogen 29 mg/dL (8-23); Calcium 7.7 mg/dL (8.5-10.5); Carbon Dioxide 25 mmol/L (22-29); Chloride 107 mmol/L (98-107); Globulin 2.9 g/dL (1.3-4.6); Glucose 150 mg/dL (65-115); Lactate (Lactic Acid level) 1.8 mmol/L (0.5-2.2); Magnesium 2.1 mg/dL (1.7-2.3); Osmolality Calculated 311 mOsm/kg (285-295); Sodium 146 mmol/L (136-145); Total Bilirubin 0.5 mg/dL (0.15-1.2); Total Protein 5.2 g/dL (6.6-8.7)
[2020-12-10] MEDS: cisatracurium 100 MG in sodium chloride 0.9% 50 ML 9.39 MG IV (05:25)
[2020-12-10 05:28] LABS: Alanine Aminotransferase < 5 U/L (0-33); Aspartate Amino Transferase 5 U/L (0-32)
[2020-12-10 05:34] LABS: D Dimer 1.38 ug/mIFEU (0-0.59)
[2020-12-10] MEDS: famotidine 20 mg/2 mL INJ IVP ×2 (05:35→18:22)
--- NOTE | 2020-12-10 05:43 | PC.NURSE ---
TOF 1900 - 2 2100 - 2 2300 - 2 0100 - 2 0300 - 3 0500 - 4 Dr. Freitas called to notify of significant BIS and TOF changes. Versed ordered in addition to max propofol and fentanyl.
--- NOTE | 2020-12-10 05:49 | PC.NURSE ---
Shift Note Frequent safety and comfort rounds continue. Orders and/or nursing care completed as indicated. Patient repositioned every 2 hours. Levon kit was used to swab mouth every 2 hours. At approximately 2230, patient was proned with assistance from RT and other ICU RNs. Pt tolerated proning movement and position well. TOF and BIS assessments were completed every 2 hours and documented (see critical care flowsheet and previous note). Accucheck completed once per hour and insulin drip titrated per protocol (see MAR). Patient monitored for response to intervention and treatment. Patient's son (Thomas) called and received an update from this nurse. Will continue to monitor.
[2020-12-10 06:14] LABS: Ferritin 322 ng/mL (15-150)
[2020-12-10 06:21] LABS: Slide Review Slide Review Perform
--- NOTE | 2020-12-10 07:00 | XRR_ITS ---
PROCEDURE INFORMATION: Exam: XR Chest Exam date and time: 12/10/2020 7:00 AM Age: 69 years old Clinical indication: Shortness of breath; Additional info: Respiratory failure TECHNIQUE: Imaging protocol: XR of the chest. Views: 1 view. COMPARISON: CR XR chest 1V portable [id number] 12/08/2020 11:13 AM FINDINGS: Tubes, catheters and devices: There is an endotracheal tube present, with distal tip 2.5 cm above the lashay. Right jugular central line and nasogastric tube appear unchanged. Lungs: Diffuse bilateral nonspecific pulmonary infiltrates are present. This may represent bilateral pneumonia versus pulmonary edema. Pleural spaces: No pleural effusion. No pneumothorax. Heart/Mediastinum: No cardiomegaly. Bones/joints: Unremarkable. XR/XR chest 1V portable [id number] IMPRESSION: 1. Diffuse bilateral nonspecific pulmonary infiltrates are present. This may represent bilateral pneumonia versus pulmonary edema. Infiltrates have improved/decreased when compared to 12/08/2020. 2. There is an endotracheal tube present, with distal tip 2.5 cm above the lashay. This catheter has been advanced since the prior study of 12/08/2020. The other support lines appear unchanged.
[2020-12-10] MEDS: dexamethasone 10 mg/mL INJ 6 MG IVP ×3 (07:34→22:42)
[2020-12-10] MEDS: budesonide 0.5 mg/2 mL Neb INHALATION ×2 (08:24→20:38)
[2020-12-10 10:05] LABS: Procalcitonin 1.35 ng/mL (0-0.5)
[2020-12-10] MEDS: bumetanide 0.25 mg/mL SDV 10 mL 2 MG IV ×2 (10:15→18:21)
[2020-12-10] MEDS: linezolid premix 600 MG/300 ML PREMIX 300 MG IV ×2 (10:16→22:14)
--- NOTE | 2020-12-10 11:43 | P.PN_ITS ---
Subjective Subjective: Interval history: Hospital Course 69 year old female who was brought in by EMS intubated and being oxygenated by bag valve for respiratory failure. Apparently patient's oxygen saturation were 50%. She tested positive Covid roughly around November 28. Laboratory workup on arrival showed a WBC of 6.4, hemoglobin of 14.3, hematocrit 45.5 and a platelet count of 231. D-dimer 1.23. Arterial blood gases showed a pH of 7.29, pCO2 41.2, PO2 of 69.8 and a bicarb of 19.9 on 100% FiO2, 400 tidal volume, 10 of PEEP. Sodium 141, potassium 3.6, chloride 105, bicarb 22, BUN 13 and creatinine 0.6. Glucose of 210. Lactic acid of 1.2. AST of 50, ALT of 20, alkaline phosphatase 137. C reactive protein of 163. COVID-19 rapid antigen and PCR positive. Imaging studies included a CT of chest which showed bilateral consolidations throughout both lungs without any evidence of acute pulmonary embolism. Patient was admitted to ICU, sedation with fentanyl, versed and propofol. Started on remdesivir 5 day protocol, decahedron 6 mg IV q6hr and on 12/07 was given Actemra. After adequate sedation paralytics was initiated. ARDS Proning protocol was however initial attempts to reposition to supine were unsuccessful due to profound hypoxia. She remained prone for up to 40hr. Continued to require 100 perfect FIO2. Bumex 2 mg IV q12hr was initiated. 12/09/2020 Patient was transitioned to supine. Propofol 50mcg, fentanyl 100mcg, and nimbex T-Max 98.3, U/O 0.19 ml/kg/hr Net positive 2.4L since admission 12/10/2020 Patient was again proned last evening Urine out put 0.17 ml/kg/hr Tmax 98.3 Fio2 95% , Medications: Reviewed: Yes Vitals/I&O/Wt Last Vital Signs Temp 98.3 F 12/09/20 16:00 Pulse 73 12/10/20 09:15 Resp 30 H 12/10/20 11:06 BP 122/66 12/10/20 09:15 Pulse Ox 93 12/10/20 11:06 12/09/20 12/10/20 12/10/20 22:59 06:59 14:59 Intake Total 1005.966 / 1741.380 824.554 / 2565.934 12.901 / 12.901 Output Total 950 / 1800 500 / 2300 250 / 250 Balance 55.966 / -58.620 324.554 / 265.934 -237.099 / -237.099 Weight last 48 hrs Weight 96.644 kg Weight 98.458 kg Physical Exam Const: OTHER: sedated and intubated Chest: COMMONS NORMALS: normal inspection of the chest Resp: COMMON NORMALS: normal respiratory effort, No retractions and clear to auscultation bilaterally AUSCULTATION: clear to auscultation bilaterally OTHER: coarse breath sounds Cardio: COMMON NORMALS: regular rate and regular rhythm RATE: regular rate RHYTHM: regular rhythm GI: COMMON NORMALS: Soft to palpation PALPATION: Yes Soft to palpation Extremity: COMMON NORMALS: normal to inspection and no pedal edema Skin: COMMON NORMALS: no rashes or lesions noted GENERAL SKIN EXAM: no rashes or lesions noted Urinary Catheter Management^: Stoddard: Cath Placed During This Visit: yes Reason for Continuing Indwelling Catheter: Accurate Measurement of Urinary Output in Critically Ill Patients Urinary Catheter Date of Insertion: 12/05/20 Urinary Catheter Time of Insertion: 16:05 Data : 12/10/20 03:35 12/10/20 03:35 Micro: Microbiology 12/08/20 17:20 Gram Stain - Final Sputum - Endotracheal Tube Aspirate Sputum Culture - Preliminary Gram Negative Rods 12/07/20 13:57 Urine Culture - Final Urine,Clean Catch A&P Assessment and plan (1) Diabetes: Status: Acute (2) Acidosis: Status: Acute (3) COVID-19: Status: Acute (4) Respiratory failure: Status: Acute Additional A&P Information Acute Respiratory Distress Syndrome due to COVID-19 Pneumonia * On mechanical ventilation FIO2 95%, PEEP 12, TV 350 * Deep sedation protocol - Fentanyl 100 mcg, Propofol 50 * Nimbex - BIS monitoring, Maintain - 40 while paralyzed. * Prone for 18hr - Plan for supine transition today * Initiated on Diuresis - Bumex 2 mg IV q12hr - u/o 0.17 ml/kg/hr * Continue Decadron 6 mg IV q6hr - weaned to q8 on 12/09- Will continue to taper * Budsonide 0.5 mg INH BID, Duoneb q6hr SC * Empirically on Abx - Levofloxacin 750 mg IV q24h, Zosyn 3.375g IV q6hr. Zyvox 600 mg IV q12hr * COVID-19 labs 12/09. D-dimer 2.5 ->1.38, CRP 117.7, Pro-linda 2.15, Ferritin 450 -> 322 * Repeat Chest x-ray / ABG in am * Pulmonary Medicine on board Hypernatremia * Na 148->146, free 02 deficit * On bumex - may increase * Repeat BMP in am Diabetes Mellitus * Q6hr glucose checks * Insulin drip - Will plan to transition to SQ insulin * Goal glucose < 180 GI ppx * Pepcid 20 mg IV BID DVT ppx * Lovenox 40 mg SQ daily Prognosis: Guarded Attestations Medical Necessity Statement*: Require further hospitalization for management of COVID-19 related vent dependent respiratory failure Time Spent in Patient Care: Greater than 35 minutes (>than 50% of time spent in counselling and/or direct pt care on unit) . 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
--- NOTE | 2020-12-10 12:27 | PC.NUTR ---
Tube feeding recommendations: NPO day 6, no nutritional provision. Continue to recommend consideration of nutrition support if consistent with pt's goals of care. Recommend Glucerna 1.2, starting at 10 ml/hr and increasing by 10 ml/hr q 8 hrs, to goal rate of 30 CC/hr providing 864 kcal/d and 43 g PRO. H2O flushes per MD discretion. Propofol @ 31.3 ml/hr proving 826 kcal/day. See full RD assessment for further details.
--- NOTE | 2020-12-10 13:47 | PC.NURSE ---
Patient's temperture has declined since this morning. CUrrently is 94.[address] mace and received orders for the bear hugger until temperature reaches 96
--- NOTE | 2020-12-10 15:01 | PC.RESP ---
RT Shift Note Frequent safety and respiratory rounds continue. Orders completed as indicated. Patient monitored pre and post treatments throughout shift. Patient [Did.] tolerate treatments appropriately. Condition [DidNotChange]. Patient and/or entry level account representative educated on respiratory treatment and medications. Patient and/or entry level account representative [unable to comprehend]. Will continue to monitor patient progress.
--- NOTE | 2020-12-10 16:10 | PC.SOCIAL ---
IMM not Given IMM not updated. Pt is intubated & is not expected to discharge within the next 24-48hrs.
--- NOTE | 2020-12-10 16:15 | PC.NURSE ---
Patient turned from prone to spuine with the help of 4 nurses and respiratory therapy. Reposition was uneventful. Patient is now saturating 98% while supine. Getting 95% fio2.
--- NOTE | 2020-12-10 16:17 | PC.NURSE ---
NUrse updated family of reposition to supine. Spoke to son Thomas Dillon, and Ovidio Flor. Unable to reach sister fletcher morales. Received okay from Dr Kumari for family to visit. Must come in one at a time and follow isolation precautions. Nurse alerted son Ovidio and son Thomas.
--- NOTE | 2020-12-10 16:20 | PC.NURSE ---
Ovidio Flor, patient's son: [phone]
[2020-12-10] MEDS: artificial tears Op Oint 3.5 gm 1 APPLIC EYE-BOTH (16:43)
[2020-12-10] MEDS: levofloxacin-dextrose 5 % 750 MG/150 ML PREMIX 100 MG IV (18:22)
--- NOTE | 2020-12-10 18:57 | PC.NURSE ---
After application of bear hug for about 3 hours, patient's temperature raised to above the goal of [address] Kumari. Current temp is 96.8 axillary.
--- NOTE | 2020-12-10 19:10 | PC.NURSE ---
Shift Note Frequent safety and comfort rounds continue. Orders and/or nursing care completed as indicated. Patient monitored for response to intervention and treatments. Education provided to family included plan of care. Patient was placed supine at 1400 and tolerated well. Had a low temperature was resolved using a bear hugger. Family given frequent updates throughout the day.
[2020-12-10] MEDS: insulin regular-human 250 UNIT in sodium chloride 0.9% 250 ML 5.45 UNIT IV (20:00)
--- NOTE | 2020-12-10 20:13 | PC.NURSE ---
Addendum entered by Anabell Chowdary RN 12/11/20 06:23: 9 rings and 1 necklace Original Note: Patients belongings jewelry released to sister Yanet Chery at 2012. Sister is on the contact list.
[2020-12-11] VITALS (99 sets, daily range): BP systolic 119–177; BP diastolic 57–107; PULSE 84–107; RESP 26–30; TEMP 36.7–37; O2SAT 75–97
[2020-12-11] MEDS: propofol 1,000 MG/100 ML INJ 31.3 MG IV ×5 (01:26→14:38)
[2020-12-11] MEDS: ipratropium-albuterol 3 mL Neb INHALATION ×4 (03:04→20:03)
[2020-12-11] MEDS: piperacillin-tazobactam 3.375 GM in sodium chloride 0.9% (plus) 50 ML IV ×3 (03:23→19:26)
[2020-12-11 04:46] LABS: Basophils % 0.1 %; Hematocrit 42.3 % (37.0-47.0); Hemoglobin 13.8 g/dL (11.5-15.3); Lymphocytes % 5.2 %; Mean Corpuscular HGB Conc 32.6 g/dL (30.0-36.0); Mean Corpuscular Hemoglobin 28.3 pg (28.0-34.0); Mean Corpuscular Volume 86.7 fl (81-99); Mean Platelet Volume 12.2 fL (7.4-10.4); Monocytes # 1.7 10^3/uL (0.2-0.9); Monocytes % 9.4 %; Neutrophils # 13.76 10^3/uL (1.8-7.7); Neutrophils % 75.2 %; Nucleated Red Blood Cells # 0.1 /100WBC; Nucleated Red Blood Cells % 0.7 %; Platelet Count 322 10^3/cmm (130-400); Red Blood Count 4.88 10^6/uL (4.1-5.3); Red Cell Distribution Width 16.6 % (12.1-15.1); White Blood Count 18.3 10^3/uL (4.0-10.0)
[2020-12-11] MEDS: enoxaparin 40 mg/0.4 mL Syringe SUBCUT ×2 (05:00→17:01)
[2020-12-11 05:05] LABS: Albumin Level 2.6 g/dL (3.5-5.2); Alkaline Phosphatase 116 IU/L (35-105); Blood Urea Nitrogen 32 mg/dL (8-23); Calcium 8.1 mg/dL (8.5-10.5); Carbon Dioxide 24 mmol/L (22-29); Chloride 105 mmol/L (98-107); Globulin 2.9 g/dL (1.3-4.6); Glucose 110 mg/dL (65-115); Magnesium 1.9 mg/dL (1.7-2.3); Osmolality Calculated 306 mOsm/kg (285-295); Sodium 144 mmol/L (136-145); Total Bilirubin 0.6 mg/dL (0.15-1.2); Total Protein 5.5 g/dL (6.6-8.7)
[2020-12-11 05:19] LABS: ABG PCO2 35.3 mmHg (35-45); ABG PH Result 7.49 (7.35-7.45); Arterial Blood Gas Hematocrit 42.2 % (37-47); Base Excess ABG 3.7 mmol/L (-2.0-2.0); Blood Gas Sample Site Brachial, right; Blood Gas Sample Type Arterial; HCO3 ABG 26.9 mmol/L (22-26); Oxygen Device VENT; PO2 ABG 91.2 mmHg (80.0-100.0)
[2020-12-11] MEDS: famotidine 20 mg/2 mL INJ IVP ×2 (05:35→18:08)
[2020-12-11 05:46] LABS: Slide Review Slide Review Perform
--- NOTE | 2020-12-11 06:04 | PC.NURSE ---
Shift Note Frequent safety and comfort rounds continue. Orders and/or nursing care completed as indicated. Patient monitored for response to intervention and treatment(s). Education provided includes respiratory function. Patient and/or accounts receivable representative needs reinforcement. Will continue to monitor.
[2020-12-11 06:18] LABS: Anion Gap 19.3 (5-19); Potassium 4.3 mmol/L (3.5-5.1)
[2020-12-11 06:19] LABS: Aspartate Amino Transferase 34 U/L (0-32)
[2020-12-11] MEDS: dexamethasone 10 mg/mL INJ 6 MG IVP ×3 (06:31→22:42)
--- NOTE | 2020-12-11 07:00 | XRR_ITS ---
PROCEDURE INFORMATION: Exam: XR Chest Exam date and time: 12/11/2020 7:00 AM Age: 69 years old Clinical indication: Shortness of breath; Additional info: Respiratory failure TECHNIQUE: Imaging protocol: XR of the chest. Views: 1 view. Total images: 1 COMPARISON: CR (CHEST, ) 12/10/2020 4:56 PM FINDINGS: Tubes, catheters and devices: Tubes and catheters are unchanged from the prior exam. Lungs: Bilateral pulmonary opacities have improved from the prior exam. Pleural spaces: Unremarkable. No pleural effusion. No pneumothorax. Heart/Mediastinum: Heart size is stable when compared to the prior exam. Bones/joints: Osseous structures are unchanged from the prior exam. XR/XR chest 1V portable [id number] IMPRESSION: 1. Tubes and catheters are unchanged from the prior exam. 2. Bilateral pulmonary opacities have improved from the prior exam.
[2020-12-11 07:56] LABS: Glucose Point of Care 137 mg/dL (70-110)
[2020-12-11 07:56] LABS: Glucose Point of Care 118 mg/dL (70-110)
[2020-12-11 07:56] LABS: Glucose Point of Care 188 mg/dL (70-110)
[2020-12-11 07:56] LABS: Glucose Point of Care 111 mg/dL (70-110)
[2020-12-11 07:56] LABS: Glucose Point of Care 163 mg/dL (70-110)
[2020-12-11 07:56] LABS: Glucose Point of Care 167 mg/dL (70-110)
[2020-12-11 07:56] LABS: Glucose Point of Care 168 mg/dL (70-110)
[2020-12-11 07:56] LABS: Glucose Point of Care 151 mg/dL (70-110)
[2020-12-11 07:56] LABS: Glucose Point of Care 150 mg/dL (70-110)
[2020-12-11 07:56] LABS: Glucose Point of Care 189 mg/dL (70-110)
[2020-12-11 07:56] LABS: Glucose Point of Care 128 mg/dL (70-110)
[2020-12-11 07:56] LABS: Glucose Point of Care 195 mg/dL (70-110)
[2020-12-11 07:56] LABS: Glucose Point of Care 195 mg/dL (70-110)
[2020-12-11 07:56] LABS: Glucose Point of Care 134 mg/dL (70-110)
[2020-12-11 07:56] LABS: Glucose Point of Care 209 mg/dL (70-110)
[2020-12-11 07:56] LABS: Glucose Point of Care 165 mg/dL (70-110)
[2020-12-11 07:56] LABS: Glucose Point of Care 143 mg/dL (70-110)
[2020-12-11 07:56] LABS: Glucose Point of Care 156 mg/dL (70-110)
[2020-12-11 07:56] LABS: Glucose Point of Care 187 mg/dL (70-110)
[2020-12-11 07:56] LABS: Glucose Point of Care 186 mg/dL (70-110)
[2020-12-11 07:56] LABS: Glucose Point of Care 149 mg/dL (70-110)
[2020-12-11 07:56] LABS: Glucose Point of Care 149 mg/dL (70-110)
[2020-12-11 07:56] LABS: Glucose Point of Care 200 mg/dL (70-110)
[2020-12-11 07:58] LABS: Glucose Point of Care 200 mg/dL (70-110)
[2020-12-11 07:58] LABS: Glucose Point of Care 129 mg/dL (70-110)
[2020-12-11 07:58] LABS: Glucose Point of Care 140 mg/dL (70-110)
[2020-12-11 07:58] LABS: Glucose Point of Care 229 mg/dL (70-110)
[2020-12-11 07:58] LABS: Glucose Point of Care 141 mg/dL (70-110)
[2020-12-11 07:58] LABS: Glucose Point of Care 181 mg/dL (70-110)
[2020-12-11 07:58] LABS: Glucose Point of Care 203 mg/dL (70-110)
[2020-12-11 07:58] LABS: Glucose Point of Care 163 mg/dL (70-110)
[2020-12-11 07:58] LABS: Glucose Point of Care 151 mg/dL (70-110)
[2020-12-11 07:58] LABS: Glucose Point of Care 192 mg/dL (70-110)
[2020-12-11 07:58] LABS: Glucose Point of Care 132 mg/dL (70-110)
[2020-12-11 07:58] LABS: Glucose Point of Care 227 mg/dL (70-110)
[2020-12-11 07:58] LABS: Glucose Point of Care 145 mg/dL (70-110)
[2020-12-11 07:58] LABS: Glucose Point of Care 128 mg/dL (70-110)
[2020-12-11 07:58] LABS: Glucose Point of Care 213 mg/dL (70-110)
[2020-12-11 07:58] LABS: Glucose Point of Care 189 mg/dL (70-110)
[2020-12-11 07:58] LABS: Glucose Point of Care 165 mg/dL (70-110)
[2020-12-11 07:58] LABS: Glucose Point of Care 231 mg/dL (70-110)
[2020-12-11 07:58] LABS: Glucose Point of Care 138 mg/dL (70-110)
[2020-12-11 07:59] LABS: Glucose Point of Care 175 mg/dL (70-110)
[2020-12-11 07:59] LABS: Glucose Point of Care 128 mg/dL (70-110)
[2020-12-11 07:59] LABS: Glucose Point of Care 147 mg/dL (70-110)
[2020-12-11 07:59] LABS: Glucose Point of Care 226 mg/dL (70-110)
[2020-12-11 07:59] LABS: Glucose Point of Care 134 mg/dL (70-110)
[2020-12-11 07:59] LABS: Glucose Point of Care 112 mg/dL (70-110)
[2020-12-11 09:08] LABS: Glucose Point of Care 171 mg/dL (70-110)
[2020-12-11] MEDS: bumetanide 0.25 mg/mL SDV 10 mL 2 MG IV ×2 (09:09→17:01)
[2020-12-11] MEDS: budesonide 0.5 mg/2 mL Neb INHALATION ×2 (09:12→20:03)
[2020-12-11 10:28] LABS: Glucose Point of Care 180 mg/dL (70-110)
[2020-12-11 12:49] LABS: Glucose Point of Care 187 mg/dL (70-110)
[2020-12-11 12:49] LABS: Glucose Point of Care 191 mg/dL (70-110)
[2020-12-11] MEDS: linezolid premix 600 MG/300 ML PREMIX 300 MG IV ×2 (13:02→22:42)
[2020-12-11 14:22] LABS: Glucose Point of Care 161 mg/dL (70-110)
--- NOTE | 2020-12-11 14:53 | PC.RESP ---
RT Shift Note Frequent safety and respiratory rounds continue. Orders completed as indicated. Patient monitored pre and post treatments throughout shift. Patient [Did.] tolerate treatments appropriately. Condition [.DidNotChange]. Patient and/or hotel services sales representative educated on respiratory treatment and medications. Patient and/or hotel services sales representative [unable to comprehend]. Will continue to monitor patient progress.
[2020-12-11 15:39] LABS: Glucose Point of Care 170 mg/dL (70-110)
--- NOTE | 2020-12-11 16:45 | P.PN_ITS ---
Subjective Subjective: Interval history: Hospital Course 69 year old female who was brought in by EMS intubated and being oxygenated by bag valve for respiratory failure. Apparently patient's oxygen saturation were 50%. She tested positive Covid roughly around November 28. Laboratory workup on arrival showed a WBC of 6.4, hemoglobin of 14.3, hematocrit 45.5 and a platelet count of 231. D-dimer 1.23. Arterial blood gases showed a pH of 7.29, pCO2 41.2, PO2 of 69.8 and a bicarb of 19.9 on 100% FiO2, 400 tidal volume, 10 of PEEP. Sodium 141, potassium 3.6, chloride 105, bicarb 22, BUN 13 and creatinine 0.6. Glucose of 210. Lactic acid of 1.2. AST of 50, ALT of 20, alkaline phosphatase 137. C reactive protein of 163. COVID-19 rapid antigen and PCR positive. Imaging studies included a CT of chest which showed bilateral consolidations throughout both lungs without any evidence of acute pulmonary embolism. Patient was admitted to ICU, sedation with fentanyl, versed and propofol. Started on remdesivir 5 day protocol, decahedron 6 mg IV q6hr and on 12/07 was given Actemra. After adequate sedation paralytics was initiated. ARDS Proning protocol was however initial attempts to reposition to supine were unsuccessful due to profound hypoxia. She remained prone for up to 40hr. Continued to require 100 perfect FIO2. Bumex 2 mg IV q12hr was initiated. 12/09/2020 Patient was transitioned to supine. Propofol 50mcg, fentanyl 100mcg, and nimbex T-Max 98.3, U/O 0.19 ml/kg/hr Net positive 2.4L since admission 12/10/2020 Patient was again proned last evening Urine out put 0.17 ml/kg/hr Tmax 98.3 Fio2 95% 12/11/2020 No new clinical events Patient supine O2 sats 95% Fio2 weaned to 75% Medications: Reviewed: Yes Vitals/I&O/Wt Last Vital Signs Temp 98.5 F 12/11/20 19:30 Pulse 101 H 12/11/20 22:00 Resp 28 H 12/11/20 22:00 BP 142/93 12/11/20 22:00 Pulse Ox 91 12/11/20 22:00 12/11/20 12/11/20 12/12/20 14:59 22:59 06:59 Intake Total 379.307 / 379.307 812.131 / 1191.438 Output Total 225 / 225 1675 / 1900 Balance 154.307 / 154.307 -862.869 / -708.562 Weight last 48 hrs Weight 96.842 kg Weight 96.644 kg Physical Exam Const: OTHER: sedated and intubated Chest: COMMONS NORMALS: normal inspection of the chest Resp: COMMON NORMALS: normal respiratory effort, No retractions and clear to auscultation bilaterally AUSCULTATION: clear to auscultation bilaterally OTHER: coarse breath sounds Cardio: COMMON NORMALS: regular rate and regular rhythm RATE: regular rate RHYTHM: regular rhythm GI: COMMON NORMALS: Soft to palpation PALPATION: Yes Soft to palpation Extremity: COMMON NORMALS: normal to inspection and no pedal edema Skin: COMMON NORMALS: no rashes or lesions noted GENERAL SKIN EXAM: no rashes or lesions noted Urinary Catheter Management^: Stoddard: Cath Placed During This Visit: yes Reason for Continuing Indwelling Catheter: Accurate Measurement of Urinary Output in Critically Ill Patients Urinary Catheter Date of Insertion: 12/05/20 Urinary Catheter Time of Insertion: 16:05 Data : 12/11/20 03:40 12/11/20 03:40 Micro: Microbiology 12/08/20 17:20 Gram Stain - Final Sputum - Endotracheal Tube Aspirate Sputum Culture - Final Pseudomonas aeruginosa 12/05/20 15:55 Blood Culture - Final Blood NO GROWTH AFTER 5 DAYS 12/05/20 15:50 Blood Culture - Final Blood NO GROWTH AFTER 5 DAYS A&P Assessment and plan (1) Diabetes: Status: Acute (2) Acidosis: Status: Acute (3) COVID-19: Status: Acute (4) Respiratory failure: Status: Acute Additional A&P Information Acute Respiratory Distress Syndrome due to COVID-19 Pneumonia * On mechanical ventilation FIO2 75%, PEEP 12, TV 350 * Deep sedation protocol - Fentanyl 100 mcg, Propofol 50 * Nimbex - BIS monitoring, Maintain - 40 while paralyzed. * Completed proaning - Wean off paralytics. * Initiated on Diuresis - Bumex 2 mg IV q12hr - u/o 0.17 ml/kg/hr * Continue Decadron 6 mg IV q6hr - weaned to q8 on 12/09- now q12 - Will continue to taper * Budsonide 0.5 mg INH BID, Duoneb q6hr SC * Empirically on Abx - Levofloxacin 750 mg IV q24h, Zosyn 3.375g IV q6hr. Zyvox 600 mg IV q12hr * COVID-19 labs 12/09. D-dimer 2.5 ->1.38, CRP 117.7, Pro-linda 2.15, Ferritin 450 -> 322 * Repeat Chest x-ray / ABG in am * Pulmonary Medicine on board Hypernatremia * Na 148->146, free 02 deficit - 144 * Repeat BMP in am Diabetes Mellitus * Q6hr glucose checks * Insulin drip - Will plan to transition to SQ insulin * Goal glucose < 180 FEN * Will initiate tube feeding. * Dietary consult GI ppx * Pepcid 20 mg IV BID DVT ppx * Lovenox 40 mg SQ daily Prognosis: Guarded Attestations Medical Necessity Statement*: Require further hospitalizationFor managed according 19 related respiratory failure requiring mechanical ventilation Time Spent in Patient Care: Greater than 35 minutes (>than 50% of time spent in counselling and/or direct pt care on unit) . 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
[2020-12-11 16:55] LABS: Glucose Point of Care 139 mg/dL (70-110)
[2020-12-11] MEDS: levofloxacin-dextrose 5 % 750 MG/150 ML PREMIX 100 MG IV (17:01)
[2020-12-11 17:45] LABS: Glucose Point of Care 129 mg/dL (70-110)
--- NOTE | 2020-12-11 18:23 | PC.NURSE ---
Shift Note Frequent safety and comfort rounds continue. Orders and/or nursing care completed as indicated. Patient monitored for response to intervention and treatments. Uneventful shift. Patient rested in bed throughout the day. O2 requirements decreaed slightly, curently at 75% FIO2 on the vent. Throughout the shift, the nurse was receiving multiple calls from multiple family members. Enough that it was interfering with their ability to provide care. After discussing issue with the patient's tabitha, we were given permission to just give information to the patient's son named Thomas. Thomas will provide updates to the family as he sees fit and we can refer any family members to call Thomas Dillon if they want an update. His contact information is listed in the demographics. THe patient's named tabitha may still occaisonally may call for an update, which nurse said was okay as he wanted the ability to do that if he was to agree to referring all other family requests for info to Thomas.
[2020-12-11 20:05] LABS: Glucose Point of Care 206 mg/dL (70-110)
[2020-12-11 20:05] LABS: Glucose Point of Care 169 mg/dL (70-110)
[2020-12-11 21:24] LABS: Glucose Point of Care 159 mg/dL (70-110)
[2020-12-11] MEDS: propofol 1,000 MG/100 ML INJ 18.78 MG IV (21:52)
[2020-12-11 22:02] LABS: Glucose Point of Care 132 mg/dL (70-110)
--- NOTE | 2020-12-11 23:05 | PC.NURSE ---
Updated Family Called son, Thomas Dillon, gave update on patient status.
[2020-12-11 23:34] LABS: Glucose Point of Care 179 mg/dL (70-110)
[2020-12-12] VITALS (62 sets, daily range): BP systolic 110–184; BP diastolic 57–112; PULSE 80–143; RESP 24–28; TEMP 36.6–36.8; O2SAT 87–93
[2020-12-12 00:06] LABS: Glucose Point of Care 188 mg/dL (70-110)
[2020-12-12 01:05] LABS: Glucose Point of Care 157 mg/dL (70-110)
[2020-12-12 02:05] LABS: Glucose Point of Care 154 mg/dL (70-110)
[2020-12-12] MEDS: ipratropium-albuterol 3 mL Neb INHALATION ×5 (02:47→20:26)
[2020-12-12] MEDS: piperacillin-tazobactam 3.375 GM in sodium chloride 0.9% (plus) 50 ML IV (02:50)
[2020-12-12] MEDS: propofol 1,000 MG/100 ML INJ 18.78 MG IV (02:55)
[2020-12-12 03:07] LABS: Glucose Point of Care 156 mg/dL (70-110)
--- NOTE | 2020-12-12 03:38 | PC.NURSE ---
Sedation increased Patient's head was moved in order to access her central line, shortly after patient's eyes opened and mouth moved to bite ET tube. Propofol increased per protocol.
[2020-12-12 04:03] LABS: Glucose Point of Care 150 mg/dL (70-110)
[2020-12-12 04:24] LABS: Hematocrit 42.1 % (37.0-47.0); Hemoglobin 13.6 g/dL (11.5-15.3); Mean Corpuscular HGB Conc 32.3 g/dL (30.0-36.0); Mean Corpuscular Hemoglobin 28.6 pg (28.0-34.0); Mean Corpuscular Volume 88.6 fl (81-99); Mean Platelet Volume 11.9 fL (7.4-10.4); Platelet Count 326 10^3/cmm (130-400); Red Blood Count 4.75 10^6/uL (4.1-5.3); Red Cell Distribution Width 16.7 % (12.1-15.1); White Blood Count 20.4 10^3/uL (4.0-10.0)
--- NOTE | 2020-12-12 04:38 | PC.NURSE ---
Position Patient has not tolerated last two turns very well, with oxygen saturation decreasing each time. Position not changed in this instance due to patient's oxygen saturation being 87-88 prior to movement.
[2020-12-12 04:55] LABS: ABG PCO2 36.2 mmHg (35-45); Arterial Blood Gas Hematocrit 41.3 % (37-47); Blood Gas Sample Site Brachial, left; Blood Gas Sample Type Arterial; HCO3 ABG 28.2 mmol/L (22-26); Oxygen Device VENT; PO2 ABG 52.2 mmHg (80.0-100.0)
[2020-12-12 05:06] LABS: Glucose Point of Care 139 mg/dL (70-110)
[2020-12-12 05:53] LABS: Slide Review Slide Review Perform
[2020-12-12 05:55] LABS: Absolute Segmented Neutrophil 14.9 10/cmm (1.6-7.1); Band Neutrophils Absolute 1.6 10^3/cmm (0.0-1.2); Lymphocytes 6 %; Monocytes Absolute 1.4 10^3/cmm (0.1-0.6); Segmented Neutrophils 73 %; Total Cells Counted 100 (0-100)
[2020-12-12 05:56] LABS: Absolute Neutrophil 16.5 10^3/cmm (1.4-6.5); Eosinophils 0 %; Lymphocytes Absolute 1.2 10^3/cmm (1.2-3.4); Platelet Estimate Normal (Normal); Poikilocytosis 1+
[2020-12-12] MEDS: propofol 1,000 MG/100 ML INJ 31.3 MG IV ×6 (06:06→22:08)
[2020-12-12 06:07] LABS: Glucose Point of Care 136 mg/dL (70-110)
[2020-12-12] MEDS: famotidine 20 mg/2 mL INJ IVP ×2 (06:08→16:59)
[2020-12-12] MEDS: enoxaparin 40 mg/0.4 mL Syringe SUBCUT (06:08)
--- NOTE | 2020-12-12 06:40 | PC.SOCIAL ---
IM follow up not provided. Patient is on vent and discharge not anticipated in next two days.
--- NOTE | 2020-12-12 06:55 | PC.NURSE ---
Shift Note Frequent safety and comfort rounds continue. Orders and/or nursing care completed as indicated. Patient monitored for response to intervention and treatment(s). Education provided included status updates to son. Almond Sorter verbalized understanding; patient unable to comprehend teaching due to sedation.
[2020-12-12 07:03] LABS: Glucose Point of Care 158 mg/dL (70-110)
[2020-12-12] MEDS: dexamethasone 10 mg/mL INJ 6 MG IVP ×2 (07:42→19:05)
[2020-12-12] MEDS: bumetanide 0.25 mg/mL SDV 10 mL 2 MG IV (08:07)
[2020-12-12 08:18] LABS: Glucose Point of Care 159 mg/dL (70-110)
--- NOTE | 2020-12-12 08:27 | PC.CHAP ---
Pastoral Care Encounter/Spiritual Assessment Type of Contact [] Declined donations attendant visit [] Patient/Family/Request visit [] Outpatient visit [] Follow-up visit [] Physician referral [] Code/Alert [x] Routine visit [] Staff referral [] Actively dying [] Patient sleeping [] Family support [] [] Out of room [] Palliative care [] [] Receiving care in room [] Pre-surgical visit [] Trauma [] Long length of stay [x] ICU visit [] Other: Relational/Emotional Strength [] Patient feels connected with others/family/visitors/staff [] Distress [] Loneliness/isolation [] Abandonment Spirituality of Patient [] Person of Monika [] Attends Taoism of their Monika [] Believes in Prayer [] Reads Bible or Moravian materials [] There are Spiritual issues to be addressed Direct Service Professional Interventions [x] Prayer [] Active listening [] Non-anxious presence [] Spiritual/emotional support [] Crisis/trauma care [] Spiritual counseling [] Bereavement support [] Provided bereavement packet [] Provided Bible/devotional materials [] Provided toy/stuffed animal, coloring book to patient or family member [] Provided Communion [] Anointing/Blakeslee [] Salvation [x] Completed spiritual assessment [] Other: Impact on Illness or Injury [] Angry [] Fearful [] Anxious [] Often cries [] Exhaustion [] Unable to work [] Unable to attend samaritan [] Unable to walk/stand [] Unable to read [] Unable to drive [] Unable to eat/drink [] Unable to sleep [] Unable to be with family [] Patient intubated [] Other: Summary Time spent with patient
[2020-12-12] MEDS: budesonide 0.5 mg/2 mL Neb INHALATION ×2 (08:46→20:26)
--- NOTE | 2020-12-12 08:53 | PC.NURSE ---
0700 Report received, assessment completed. Insulin gtt per protocol infusing. All other gtts infusing per orders. ETT in place, vent setting per RT. OGT in place to low intermittent suction. Stoddard cath in place draining freely to BSD. Repositioned and oral care performed q2h and PRN.
[2020-12-12 09:14] LABS: Glucose Point of Care 168 mg/dL (70-110)
[2020-12-12] MEDS: linezolid premix 600 MG/300 ML PREMIX 300 MG IV (09:59)
[2020-12-12 10:25] LABS: Glucose Point of Care 174 mg/dL (70-110)
[2020-12-12] MEDS: enoxaparin 100 mg/mL Syringe SUBCUT ×2 (11:06→22:58)
[2020-12-12] MEDS: FUROsemide 10 mg/mL SDV 10mL 60 MG IVP ×2 (11:06→22:44)
[2020-12-12 11:21] LABS: Glucose Point of Care 232 mg/dL (70-110)
[2020-12-12] MEDS: hyDRALAzine 20 mg/mL INJ 1 mL 10 MG IVP (11:39)
[2020-12-12 11:46] LABS: Albumin Level 2.7 g/dL (3.5-5.2); Alkaline Phosphatase 112 IU/L (35-105); Blood Urea Nitrogen 44 mg/dL (8-23); Calcium 7.6 mg/dL (8.5-10.5); Carbon Dioxide 24 mmol/L (22-29); Chloride 105 mmol/L (98-107); Globulin 2.6 g/dL (1.3-4.6); Glucose 141 mg/dL (65-115); Iron 213 ug/dL (37-145); Osmolality Calculated 318 mOsm/kg (285-295); Sodium 147 mmol/L (136-145); Total Bilirubin 0.8 mg/dL (0.15-1.2); Total Protein 5.3 g/dL (6.6-8.7)
[2020-12-12 11:54] LABS: Thyroid Stimulating Hormone 1.66 uIU/mL (0.27-4.20)
[2020-12-12 11:58] LABS: Alanine Aminotransferase < 5 U/L (0-33); Aspartate Amino Transferase 5 U/L (0-32)
[2020-12-12] MEDS: morphine 4 mg/mL SDV 1 mL 2 MG IVP (12:04)
[2020-12-12] MEDS: metoprolol tartrate 1 mg/1 mL SDV 5 mL 5 MG IVP (12:05)
[2020-12-12 12:15] LABS: Glucose Point of Care 246 mg/dL (70-110)
[2020-12-12 12:32] LABS: Anion Gap 21.8 (5-19); Potassium 3.8 mmol/L (3.5-5.1)
[2020-12-12 13:12] LABS: Glucose Point of Care 202 mg/dL (70-110)
[2020-12-12 13:58] LABS: Unsaturated Iron Binding < 17 ug/dL (112-347)
[2020-12-12 14:12] LABS: Glucose Point of Care 149 mg/dL (70-110)
[2020-12-12 14:54] LABS: Glucose Point of Care 147 mg/dL (70-110)
--- NOTE | 2020-12-12 15:13 | PC.RESP ---
RT Shift Note Frequent safety and respiratory rounds continue. Orders completed as indicated. Patient monitored pre and post treatments throughout shift. Patient [Did.] tolerate treatments appropriately. Condition [.DidNotChange]. Patient and/or u.s. representative educated on respiratory treatment and medications. Patient and/or u.s. representative [unable to comprehend]. Will continue to monitor patient progress.
--- NOTE | 2020-12-12 15:31 | PC.NUTR ---
Nutrition Note: TF recommendations -One option if consistent with goals of care: Pulmocare 15cc/hr as the target rate will provide 540 kcals + 826 kcal Propofol = 1366 kcal total (81% of est. calorie needs) as well as 23 grams protein (34% est prot needs). Current Pulmocare goal rate of 50cc/hr will provide 1800 kcals + 826 kcals Propofol = 2626 kcals (156% est. calorie needs) as well as 76 g prot (113% est prot. needs). Another option if consistent with goals of care: Glucerna 1.2, starting at 10 ml/hr and increasing by 10 ml/hr q 8 hrs, to goal rate of 20 CC/hr providing 576 kcal/d + 826 kcals/day from Propofol = 1402 kcal (83% of est. calorie needs) and 29 g PRO (43% est. protein needs) and 386 ml h20. H2O flushes 150 per MD discretion.
[2020-12-12 16:05] LABS: Glucose Point of Care 127 mg/dL (70-110)
--- NOTE | 2020-12-12 16:51 | P.PN_ITS ---
Subjective Subjective: Interval history: Hospital course, labs appreciated. Patient remains on mechanical ventilation, sedated with propofol and fentanyl. Current ventilator settings PEEP of 12, FiO2 of 70% with tidal volume of 440. During examination PEEP decreased to 10. Patient remains saturation over 91%. Has remained hemodynamically stable as per nursing staff. Documented urine output 2.8 L in last 24 hours and 1200 cc since today morning in the last 5 hours. Mildly elevated during the day. Having tachycardia with heart rate going up to 130s in between. Medications: Reviewed: Yes Vitals/I&O/Wt Last Vital Signs Temp 98.2 F 12/12/20 12:00 Pulse 106 H 12/12/20 16:30 Resp 26 H 12/12/20 16:00 BP 131/71 12/12/20 16:30 Pulse Ox 91 12/12/20 15:14 12/12/20 12/12/20 12/12/20 06:59 14:59 22:59 Intake Total 613.305 / 1804.743 975.605 / 975.605 6.324 / 981.929 Output Total 925 / 2825 1000 / 1000 1100 / 2100 Balance -311.695 / -1020.257 -24.395 / -24.395 -1093.676 / -1118.071 Weight last 48 hrs Weight 97.522 kg Weight 96.842 kg Physical Exam Narrative: EXAM NARRATIVE: General: Intubated, sedated HEENT: PERRLA, pupils bilaterally equal and reactive Chest: Bilateral bronchial breath sounds, coarse crackles present all over the lung gamboa bilaterally anterior more than posterior,, equal good air entry bilaterally CVS: S1-S2 regular, no murmurs,tachycardia, no gallops, no rubs Abdomen: Soft, nontender, no organomegaly, bowel sounds present Neuro: Intubated, sedated Urinary Catheter Management^: Stoddard: Cath Placed During This Visit: yes Reason for Continuing Indwelling Catheter: Accurate Measurement of Urinary Output in Critically Ill Patients Urinary Catheter Date of Insertion: 12/05/20 Urinary Catheter Time of Insertion: 16:05 Data : 12/12/20 03:25 12/12/20 03:25 Micro: Microbiology 12/12/20 12:22 MRSA Culture - Final Nose 12/12/20 12:40 Legionella Urinary Antigen - Final Urine Catheterized 12/12/20 12:40 Bacterial Antigens - Final Urine Kidney A&P Assessment and plan (1) ARDS (adult respiratory distress syndrome): Status: Acute (2) Acute respiratory failure due to COVID-19: Status: Acute (3) Pseudomonas pneumonia: Status: Acute (4) Diabetes: Status: Acute (5) Acidosis: Status: Acute Additional A&P Information Acute Respiratory Distress Syndrome due to COVID-19 Pneumonia and secondary bacterial Pseudomonas pneumonia: Post proning sessions. Continue sedation with fentanyl 125 and propofol 50. Patient has finished course of remdesivir. Decrease dexamethasone to 6 mg every 12 hourly. Will decrease to 6 mg daily from tomorrow. Continue monitor inflammatory markers including CRP, ESR, D-dimer every 48 hourly. Patient requiring high oxygen supplementation and D-dimer elevated for now start patient on full dose Lovenox with 1 mg/kg body weight every 12 hourly. Will monitor for anemia, blood loss. Sputum culture growing Pseudomonas. Patient having leukocytosis. Blood cul tures so far remain negative. Check urine Legionella, bacterial antigen. Leukocytosis could be secondary to high steroid use but for now given high oxygen supplementation will switch from Zosyn to imipenem. Continue with Levaquin and linezolid. Check MRSA swab. If negative can stop Linezolid. Most likely patient will require a 10-day course for Pseudomonas pneumonia. We will try to keep patient as net negative as possible. Switch Bumex 2 mg IV twice daily to Lasix 60 mg IV twice daily. We will monitor renal functions. Hypernatremia Sodium elevated to 147. Increase free water flushes to 250 cc every 6 hour. Monitor BMP daily for now. Diabetes Mellitus Blood sugars elevated most likely secondary to high steroid use. For now continue with insulin drip. Will monitor sugars as insulin is weaned off. High blood pressures: Goal blood pressure less than 140/90 mmHg. For now start on hydralazine and metoprolol as needed. Can go up on fentanyl. FEN Tube feedings. GI ppx * Pepcid 20 mg IV BID Full dose Lovenox will help with DVT prophylaxis as well. Severely guarded prognosis. Attestations Medical Necessity Statement*: Requires further hospitalization for management of severe ARDS secondary COVID-19 pneumonia, Pseudomonas pneumonia, hypernatremia, uncontrolled blood sugars Critical Care Time: The high probability of a clinically significant, sudden or life threatening deterioration of the patient's [pulmonary, ID, cardiac, renal, endocrine] system(s) required my full and direct attention, intervention and personal management. The critical care time is as shown. 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
[2020-12-12] MEDS: levofloxacin-dextrose 5 % 750 MG/150 ML PREMIX 100 MG IV (16:59)
[2020-12-12] MEDS: ascorbic acid 500 mg Tablet PO (16:59)
[2020-12-12 17:16] LABS: Glucose Point of Care 131 mg/dL (70-110)
[2020-12-12 18:33] LABS: Glucose Point of Care 162 mg/dL (70-110)
--- NOTE | 2020-12-12 18:55 | PC.NURSE ---
Shift Note Frequent safety and comfort rounds continue. Orders and/or nursing care completed as indicated. Patient monitored for response to intervention and treatment(s). Education provided includes treatment plan and medications. Family verbalizes understanding. VSS. No issues noted. Report fiven to Leticia VAZQUEZ. Will continue to monitor.
[2020-12-12 19:30] LABS: Glucose Point of Care 148 mg/dL (70-110)
--- NOTE | 2020-12-12 19:50 | PC.NURSE ---
Scleral edema Edema noted in right side of left eye.
[2020-12-12 20:15] LABS: Glucose Point of Care 150 mg/dL (70-110)
[2020-12-12 21:10] LABS: Glucose Point of Care 162 mg/dL (70-110)
[2020-12-12 22:03] LABS: Glucose Point of Care 147 mg/dL (70-110)
--- NOTE | 2020-12-12 22:55 | PC.NURSE ---
Family Updated Son, Thomas Dillon, called and received an update on patient. Information given included changes on vent settings, the initiation of enteral feeding, blood pressure medication received today, and overall status. Son verbalized understanding.
[2020-12-12 23:09] LABS: Glucose Point of Care 155 mg/dL (70-110)
[2020-12-13] VITALS (70 sets, daily range): BP systolic 105–174; BP diastolic 56–122; PULSE 81–116; RESP 24–34; TEMP 36.7–37; O2SAT 86–92
[2020-12-13] MEDS: insulin regular-human 250 UNIT in sodium chloride 0.9% 250 ML 6.5 UNIT IV
[2020-12-13 00:07] LABS: Glucose Point of Care 189 mg/dL (70-110)
[2020-12-13] MEDS: ipratropium-albuterol 3 mL Neb INHALATION ×7 (00:13→23:50)
[2020-12-13] MEDS: propofol 1,000 MG/100 ML INJ 31.3 MG IV ×8 (01:14→23:47)
[2020-12-13 01:16] LABS: Glucose Point of Care 188 mg/dL (70-110)
[2020-12-13 02:12] LABS: Glucose Point of Care 163 mg/dL (70-110)
[2020-12-13 03:01] LABS: Glucose Point of Care 140 mg/dL (70-110)
[2020-12-13 04:34] LABS: Glucose Point of Care 148 mg/dL (70-110)
--- NOTE | 2020-12-13 05:00 | USCV_ITS ---
SherylVeronica Age: 70 Gender: F : 1950 Exam Date: 12/13/2020 06:50 Ordering Phys: Ronny Reinoso MD Technologist: Itzel Hebert Exam Location: [facility] – [place], [place] Indication: COVID AND SOB AND VENT BP: 145 / 72 HR: 88 Rhythm: Sinus Technical Quality: Technically difficult study MEASUREMENTS (Male / Female) Normal Values 2D ECHO LV Diastolic Diameter PLAX 2.2 cm 4.2 - 5.9 / 3.9 - 5.3 cm LV Systolic Diameter PLAX 2.0 cm LV Chamber Size 2.5 cm IVS Diastolic Thickness 0.9 cm 0.6 - 1.0 / 0.6 - 0.9 cm IVS Systolic Thickness 1.6 cm LVPW Diastolic Thickness 1.2 cm 0.6 - 1.0 / 0.6 - 0.9 cm LVPW Systolic Thickness 1.6 cm RV Chamber Size 2.2 cm LVOT Diameter 2.0 cm LV Ejection Fraction 2D Teich 7.1 % LV Ejection Fraction MOD 2C 56.4 % LV Ejection Fraction 2C AL 56.8 % LA Diameter 3.1 cm LA Width 2.6 cm LA Height 3.3 cm RA Width 2.8 cm RA Height 4.3 cm Aorta at Sinotubular Diameter 2.5 cm M-MODE LV Diastolic Diameter MM 4.3 cm 4.2 - 5.9 / 3.9 - 5.3 cm LV Systolic Diameter MM 2.9 cm LV Ejection Fraction MM Teich 59.7 % IVS Diastolic Thickness MM 1.3 cm 0.6 - 1.0 / 0.6 - 0.9 cm IVS Systolic Thickness MM 1.7 cm LVPW Diastolic Thickness MM 1.0 cm 0.6 - 1.0 / 0.6 - 0.9 cm LVPW Systolic Thickness MM 1.3 cm Aortic Annulus Diameter 3.3 cm LA Ao Ratio MM 1.0 MV E Point Septal Separation 0.7 cm DOPPLER AV Peak Velocity 122.0 cm/s LVOT Peak Velocity 114.0 cm/s AV Area Cont Eq vti 2.6 cm squared AV Area Cont Eq pk 3.0 cm squared MV Area PHT 4.0 cm squared Mitral E to A Ratio 0.8 MV E' Velocity 37.5 cm/s Mitral E to MV E' Ratio 14.3 Mitral E to LV E' Lateral Ratio 14.6 Mitral E to LV E' Septal Ratio 14.0 TR Peak Velocity 149.7 cm/s TR Peak Gradient 9.0 mmHg TR Mean Velocity 95.9 cm/s TR Mean Gradient 4.6 mmHg TR Velocity Time Integral 36.5 cm TV Peak E Velocity 54.0 cm/s Right Atrial Pressure 15.0 mmHg Pulmonary Artery Systolic Pressu 24.0 mmHg PV Peak Velocity 65.0 cm/s RV Acceleration Time 0.1 s RV Ejection Time 0.3 s RV AcT/ET 0.5 FINDINGS Left Ventricle Normal left ventricular cavity size. Normal left ventricular systolic function. Left ventricular ejection fraction is estimated at 65-70 %. No gross regional wall motion normality. Grade II diastolic dysfunction, moderately elevated filling pressures. Right Ventricle Normal right ventricular size and systolic function. Right ventricular systolic pressure 24 mmHg. Right Atrium Right atrium not well visualized. Left Atrium Left atrium not well visualized. Mitral Valve Severe mitral annular calcification. Thickened mitral valve. No mitral valve stenosis. No significant mitral valve regurgitation. Aortic Valve Aortic valve not well visualized. No aortic valve stenosis. No aortic valve regurgitation. Tricuspid Valve Tricuspid valve not well visualized. Pulmonic Valve Pulmonic valve not well visualized. Pericardium Echo free space anterior to the right ventricle likely represents a fat pad. Aorta Normal-sized aortic root. Inferior vena cava not well visualized. Patient on ventilator. CONCLUSIONS 1. Normal left ventricular cavity size and systolic function. Left ventricular ejection fraction is estimated at 65-70 %. No gross regional wall motion normality. Grade II diastolic dysfunction, moderately elevated filling pressures. 2. Normal right ventricular size and systolic function. 3. Severe mitral annular calcification. Thickened mitral valve. 4. Echo free space anterior to the right ventricle likely represents a fat pad. 5. No prior similar studies to compare. Gianna Guadarrama MD (Electronically Signed) Final Date: 13 December 2020 16:48 S
[2020-12-13 05:08] LABS: ABG PH Result 7.46 (7.35-7.45); Alveolar-Arterial Oxygen Gradi 64.4 mmHg (5-10); Arterial Blood Gas Hematocrit 57.1 % (37-47); Base Excess ABG 5.5 mmol/L (-2.0-2.0); Blood Gas Allen Test Pos; Blood Gas Operator Identificat JB; Blood Gas Sample Site Radial, right; Blood Gas Sample Type Arterial; Carboxyhemoglobin 0.1 %THgb (0.4-20.1); HCO3 ABG 30.1 mmol/L (22-26); HGB O2 Sat 88.2 % (95-100); Methemoglobin 0.6 % (0.4-1.5); Oxygen Saturation ABG 88.9; PO2 ABG 57.9 mmHg (80.0-100.0); Potassium Level - ABG 3.4 mmol/L (3.5-5.0); Total Hemoglobin 18.6 g/dL (12-16)
[2020-12-13 05:13] LABS: Glucose Point of Care 162 mg/dL (70-110)
[2020-12-13 05:17] LABS: Oxygen Device vent
[2020-12-13 05:57] LABS: Basophils # 0.1 10^3/uL (0.0-0.1); Basophils % 0.2 %; Hematocrit 46.5 % (37.0-47.0); Hemoglobin 14.9 g/dL (11.5-15.3); Lymphocytes # 1.5 10^3/uL (0.8-4.8); Lymphocytes % 5.4 %; Mean Corpuscular Hemoglobin 28.9 pg (28.0-34.0); Mean Corpuscular Volume 90.1 fl (81-99); Mean Platelet Volume 12.7 fL (7.4-10.4); Monocytes # 2.2 10^3/uL (0.2-0.9); Monocytes % 7.7 %; Neutrophils # 20.81 10^3/uL (1.8-7.7); Neutrophils % 73.2 %; Nucleated Red Blood Cells # 0.1 /100WBC; Nucleated Red Blood Cells % 0.4 %; Platelet Count 309 10^3/cmm (130-400); Red Blood Count 5.16 10^6/uL (4.1-5.3); Red Cell Distribution Width 17.5 % (12.1-15.1); White Blood Count 28.4 10^3/uL (4.0-10.0)
[2020-12-13] MEDS: famotidine 20 mg/2 mL INJ IVP ×2 (05:59→17:21)
--- NOTE | 2020-12-13 06:00 | XRR_ITS ---
PROCEDURE INFORMATION: Exam: XR Chest Exam date and time: 12/13/2020 6:00 AM Age: 70 years old Clinical indication: Dyspnea; Additional info: Covid TECHNIQUE: Imaging protocol: XR of the chest. Views: 1 view. COMPARISON: CR (CHEST, ) 12/11/2020 5:25 AM FINDINGS: Tubes, catheters and devices: Support tubes and lines are in good position. Lungs: Grossly stable bilateral pulmonary infiltrates consistent with COVID-19. Pleural spaces: Unremarkable. No pleural effusion. No pneumothorax. Heart/Mediastinum: Unremarkable. No cardiomegaly. Bones/joints: Unremarkable. XR/XR chest 1V portable [id number] IMPRESSION: 1. Support tubes and lines are in good position. 2. Grossly stable bilateral pulmonary infiltrates consistent with COVID-19.
[2020-12-13] MEDS: metoprolol tartrate 1 mg/1 mL SDV 5 mL 5 MG IVP (06:11)
[2020-12-13 06:12] LABS: D Dimer 1.41 ug/mIFEU (0-0.59)
[2020-12-13 06:29] LABS: Slide Review Slide Review Perform
--- NOTE | 2020-12-13 06:40 | PC.NURSE ---
Shift Note Frequent safety and comfort rounds continue. Orders and/or nursing care completed as indicated. Patient monitored for response to intervention and treatment(s). Education provided to son included information regarding current vent settings, interventions completed, and overall patient status. He verbalized understanding; patient still sedated/intubated and is unable to comprehend.
[2020-12-13 06:43] LABS: Erythrocyte Sedimentation Rate 19 mm/hr (0-15)
[2020-12-13] MEDS: dexamethasone 10 mg/mL INJ 6 MG IVP (07:36)
--- NOTE | 2020-12-13 08:00 | PC.NURSE ---
Patient Shift Assessment Frequent safety and comfort rounds continue. Orders and/or nursing care completed as indicated. Patient monitored for response to intervention and treatment(s). Patient sedated/ventilated and not able to respond verbally or comprehend. Patient on insulin drip at 6 mL/hour, propofol 50 mcg and fentanyl at 125 mcg. Will continue to monitor.
[2020-12-13] MEDS: zinc gluconate 50 mg Tablet PO (09:01)
[2020-12-13] MEDS: ascorbic acid 500 mg Tablet PO (09:01)
[2020-12-13] MEDS: artificial tears Op Oint 3.5 gm 1 APPLIC EYE-BOTH (09:01)
--- NOTE | 2020-12-13 09:20 | PC.NURSE ---
Addendum entered by ANDREEA Arenas 12/13/20 16:52: Correction. 250 mL flushes every 6 hours. Original Note: OG Medication Administration Placement checked through auscultation of the stomach and chest x-ray confirmation this morning. Patient tube feeding held. Patient residual of 10 mL. Patient OG tube flushed with 50 mL of water, then given 50 mL of medications mixed with water and then flushed again with 50 mL. Patient tube feeding resumed at 50 mL/hour with 25 mL flushes every 6 hours. Will continue to monitor.
[2020-12-13] MEDS: budesonide 0.5 mg/2 mL Neb INHALATION ×2 (09:28→20:02)
[2020-12-13 09:29] LABS: Alanine Aminotransferase 22 U/L (0-33); Albumin Level 2.9 g/dL (3.5-5.2); Alkaline Phosphatase 161 IU/L (35-105); Blood Urea Nitrogen 45 mg/dL (8-23); C Reactive Protein 8.4 mg/L (0.0-4.9); Calcium 8.1 mg/dL (8.5-10.5); Carbon Dioxide 27 mmol/L (22-29); Chloride 102 mmol/L (98-107); Globulin 2.9 g/dL (1.3-4.6); Glucose 138 mg/dL (65-115); NT Pro B Type Natriuretic Pept 553 pg/mL (0-125); Osmolality Calculated 318 mOsm/kg (285-295); Sodium 147 mmol/L (136-145); Total Bilirubin 1.1 mg/dL (0.15-1.2); Total Protein 5.8 g/dL (6.6-8.7)
[2020-12-13] MEDS: FUROsemide 10 mg/mL SDV 10mL 80 MG IVP ×2 (09:32→22:33)
[2020-12-13] MEDS: amlodipine 10 mg Tablet PO (09:32)
[2020-12-13] MEDS: metoprolol tartrate 25 mg Tablet PO ×2 (09:33→20:59)
[2020-12-13] MEDS: metOLazone 5 MG Tablet PO (09:33)
[2020-12-13 09:42] LABS: Anion Gap 21.5 (5-19); Potassium 3.5 mmol/L (3.5-5.1)
[2020-12-13 09:43] LABS: Aspartate Amino Transferase 54 U/L (0-32)
--- NOTE | 2020-12-13 09:53 | PC.NURSE ---
OG Medication Administration New medication orders administered for patient's blood pressure. Patient feeding stopped and residual of 10 mL was present. 50 mL of water flushed through OG tube. 30 mL of medication mixed with water given to the patient and then flushed with 50 mL of water. Patient tolerated well. Will continue to monitor.
[2020-12-13] MEDS: enoxaparin 100 mg/mL Syringe SUBCUT ×2 (10:22→22:34)
--- NOTE | 2020-12-13 10:37 | PC.NURSE ---
Patient Teaching Patient education not performed at this time. Patient is sedated and unable to comprehend or respond to verbal stimuli.
--- NOTE | 2020-12-13 15:34 | PM.PN ---
Subjective Subjective: Interval history: No acute events overnight. Patient has remained hemodynamically stable. Seen multiple times during the day. In morning patient was on ventilator setting of FiO2 85%, PEEP of 12, rate of 18 and she was turned down to FiO2 of 75% with PEEP of 10 during the day. Has remained afebrile. Documented urine output in last 24 hours 3700 cc. Medications: Reviewed: Yes Vitals/I&O/Wt Last Vital Signs Temp 98.5 F 12/13/20 10:00 Pulse 103 H 12/13/20 14:00 Resp 26 H 12/13/20 13:47 BP 142/73 12/13/20 14:00 Pulse Ox 90 12/13/20 14:00 12/13/20 12/13/20 12/13/20 06:59 14:59 22:59 Intake Total 1172.134 / 2674.872 763.055 / 763.055 Output Total 1100 / 3700 1150 / 1150 Balance 72.134 / -1025.128 -386.945 / -386.945 Weight last 48 hrs Weight 96.162 kg Weight 97.522 kg Physical Exam Narrative: EXAM NARRATIVE: General: Intubated, sedated HEENT: PERRLA, pupils bilaterally equal and reactive Chest: Bilateral bronchial breath sounds, coarse crackles present all over the lung gamboa bilaterally anterior more than posterior,, equal good air entry bilaterally CVS: S1-S2 regular, no murmurs,tachycardia, no gallops, no rubs Abdomen: Soft, nontender, no organomegaly, bowel sounds present Neuro: Intubated, sedated Urinary Catheter Management^: Stoddard: Cath Placed During This Visit: yes Reason for Continuing Indwelling Catheter: Accurate Measurement of Urinary Output in Critically Ill Patients Urinary Catheter Date of Insertion: 12/05/20 Urinary Catheter Time of Insertion: 16:05 Data : 12/13/20 04:55 12/13/20 07:11 Micro: Microbiology 12/12/20 12:22 MRSA Culture - Final Nose 12/12/20 12:40 Legionella Urinary Antigen - Final Urine Catheterized 12/12/20 12:40 Bacterial Antigens - Final Urine Kidney A&P Assessment and plan (1) ARDS (adult respiratory distress syndrome): Status: Acute (2) Acute respiratory failure due to COVID-19: Status: Acute (3) Pseudomonas pneumonia: Status: Acute (4) Diabetes: Status: Acute (5) Hypertension: Status: Acute (6) Hypernatremia: Status: Acute (7) Acidosis: Status: Acute Additional A&P Information Acute Respiratory Distress Syndrome due to COVID-19 Pneumonia and secondary bacterial Pseudomonas pneumonia: Post proning sessions. Continue sedation with fentanyl 125 and propofol 50. Patient has finished course of remdesivir. Wean dexamethasone down to 6 mg wean down dexamethasone to 6 mg daily. Continue monitor inflammatory markers including CRP, ESR, D-dimer every 48 hourly. Patient requiring high oxygen supplementation and D-dimer elevated for now start patient on full dose Lovenox with 1 mg/kg body weight every 12 hourly. Will monitor for anemia, blood loss. Sputum culture growing Pseudomonas. Patient having leukocytosis. Blood cultures so far remain negative. Urine Legionella, bacterial antigen negative. Leukocytosis could be secondary to high steroid. Linezolid stopped yesterday after MRSA negative. Patient has finished 4 days of linezolid. Continue with imipenem and Levaquin for now. Plan to continue treatment for overall 7 days. We will try to keep patient as net negative as possible. Continue with Lasix 80 mg IV twice daily. Give 1 dose of metolazone 5 mg today. Strict input output charting, daily weights. Echocardiogram done. Results awaited. Hypernatremia Continue with free water flushes at 250 cc every 6 hour. Monitor BMP again in the evening. Diabetes Mellitus Blood sugars elevated most likely secondary to high steroid use. Weaning steroids down further today. For now continue with insulin drip. Will monitor sugars as insulin is weaned off. HTN: Goal blood pressure less than 140/90 mmHg. Switch over to oral amlodipine 10 mg daily, metoprolol 25 mg twice daily. Continue with metoprolol as needed every 6 hours. FEN Tube feedings. GI ppx Pepcid 20 mg IV BID Full dose Lovenox will help with DVT prophylaxis as well. Severely guarded prognosis. Patient's care discussed in detail with her son over the phone. All the questions were answered. Attestations Medical Necessity Statement*: Requires further hospitalization for management of ARDS secondary to COVID-19 and Pseudomonas pneumonia, ventilator dependent, severe hyperglycemia requiring insulin drip. Critical Care Time: The high probability of a clinically significant, sudden or life threatening deterioration of the patient's [cardiac,] system renal, endocrine, pulmonary, social(s) required my full and direct attention, intervention and personal management. The critical care time is as shown. 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
--- NOTE | 2020-12-13 16:15 | PC.NURSE ---
Skin Assessment Patient buttocks red and open in the fold of her buttocks. Patient cleaned and barrier cream applied to area. Will continue to monitor.
--- NOTE | 2020-12-13 16:40 | PC.NURSE ---
Addendum entered by ANDREEA Arenas 12/13/20 18:14: OG tube placement confirmed by chest x-ray. Residual 12 mL. Patient medication given through OG tube. 50 mL of water flushed, 30 mL of medication mixed with water and then flushed with 50 mL more of water. Tube feeding resumed at 50 mL a hour and 250 mL flushes every 6 hours. Patient tolerating well. Will continue to monitor. Original Note: OG Tube While turning the patient, the RT and this nurse noticed that OG tube looked like it had came out some from earlier marking. Tube feeding held and placement check by auscultation. OG tube taped more securely. Chest x-ray ordered for confirmation.
--- NOTE | 2020-12-13 16:43 | XR_ITS ---
WS: [id number] Portable AP supine chest, 12/13/2020, 1708 hours Clinical Data: OG tube placement Comparison: Portable chest 12/13/2020, 0519 hours Findings: The endotracheal tube, nasogastric tube, and right internal jugular venous catheter remain in the same position. The bilateral patchy pulmonary opacities are not changed. Monitor leads are on the chest wall. XR/XR chest 1V portable [id number] Impression: 1. Good position of multiple tubes. 2. No change in patchy pulmonary opacities consistent with pneumonia.
[2020-12-13 17:07] LABS: Carbon Dioxide 25 mmol/L (22-29); Chloride 102 mmol/L (98-107)
[2020-12-13] MEDS: nystatin powder 15 gm Btl 1 APPLIC TOPICAL (17:55)
[2020-12-13 18:49] LABS: Glucose Point of Care 171 mg/dL (70-110)
[2020-12-13 18:49] LABS: Glucose Point of Care 160 mg/dL (70-110)
[2020-12-13 18:49] LABS: Glucose Point of Care 186 mg/dL (70-110)
[2020-12-13 18:49] LABS: Glucose Point of Care 159 mg/dL (70-110)
[2020-12-13 18:49] LABS: Glucose Point of Care 134 mg/dL (70-110)
[2020-12-13 18:49] LABS: Glucose Point of Care 129 mg/dL (70-110)
[2020-12-13 18:49] LABS: Glucose Point of Care 163 mg/dL (70-110)
[2020-12-13 18:49] LABS: Glucose Point of Care 216 mg/dL (70-110)
[2020-12-13 18:49] LABS: Glucose Point of Care 150 mg/dL (70-110)
[2020-12-13 18:49] LABS: Glucose Point of Care 184 mg/dL (70-110)
[2020-12-13 18:49] LABS: Glucose Point of Care 134 mg/dL (70-110)
[2020-12-13 18:49] LABS: Glucose Point of Care 164 mg/dL (70-110)
[2020-12-13 18:49] LABS: Glucose Point of Care 165 mg/dL (70-110)
[2020-12-13 19:11] LABS: Glucose Point of Care 147 mg/dL (70-110)
[2020-12-13 20:21] LABS: Glucose Point of Care 151 mg/dL (70-110)
[2020-12-13 21:24] LABS: Blood Urea Nitrogen 58 mg/dL (8-23); Calcium 8.1 mg/dL (8.5-10.5); Glucose 139 mg/dL (65-115); Osmolality Calculated 320 mOsm/kg (285-295); Sodium 146 mmol/L (136-145)
[2020-12-13 21:32] LABS: Glucose Point of Care 161 mg/dL (70-110)
[2020-12-14] VITALS (61 sets, daily range): BP systolic 96–165; BP diastolic 49–106; PULSE 88–118; RESP 17–24; TEMP 35.9–37.1; O2SAT 71–94
[2020-12-14 01:20] LABS: Glucose Point of Care 126 mg/dL (70-110)
[2020-12-14 01:20] LABS: Glucose Point of Care 189 mg/dL (70-110)
[2020-12-14 01:20] LABS: Glucose Point of Care 131 mg/dL (70-110)
[2020-12-14 01:20] LABS: Glucose Point of Care 150 mg/dL (70-110)
[2020-12-14 02:17] LABS: Glucose Point of Care 178 mg/dL (70-110)
[2020-12-14] MEDS: propofol 1,000 MG/100 ML INJ 31.3 MG IV ×8 (02:44→23:50)
[2020-12-14 03:11] LABS: Glucose Point of Care 184 mg/dL (70-110)
[2020-12-14] MEDS: ipratropium-albuterol 3 mL Neb INHALATION ×5 (03:40→23:33)
[2020-12-14 05:15] LABS: Basophils # 0.1 10^3/uL (0.0-0.1); Basophils % 0.2 %; Eosinophils # 0.1 10^3/uL (0.0-0.8); Eosinophils % 0.3 %; Hematocrit 42.5 % (37.0-47.0); Hemoglobin 13.8 g/dL (11.5-15.3); Lymphocytes # 2.1 10^3/uL (0.8-4.8); Lymphocytes % 6.7 %; Mean Corpuscular HGB Conc 32.5 g/dL (30.0-36.0); Mean Corpuscular Volume 89.3 fl (81-99); Mean Platelet Volume 12.9 fL (7.4-10.4); Monocytes # 1.6 10^3/uL (0.2-0.9); Monocytes % 5.1 %; Neutrophils # 23.85 10^3/uL (1.8-7.7); Neutrophils % 76.9 %; Nucleated Red Blood Cells # 0.1 /100WBC; Nucleated Red Blood Cells % 0.3 %; Platelet Count 269 10^3/cmm (130-400); Red Blood Count 4.76 10^6/uL (4.1-5.3); Red Cell Distribution Width 17.2 % (12.1-15.1)
[2020-12-14 05:15] LABS: ABG PCO2 39.8 mmHg (35-45); ABG PH Result 7.52 (7.35-7.45); Alveolar-Arterial Oxygen Gradi 60.3 mmHg (5-10); Arterial Blood Gas Hematocrit 51.9 % (37-47); Base Excess ABG 8.4 mmol/L (-2.0-2.0); Blood Gas Allen Test Pos; Blood Gas Operator Identificat JB; Blood Gas Sample Site Radial, right; Blood Gas Sample Type Arterial; Carboxyhemoglobin 0.2 %THgb (0.4-20.1); HCO3 ABG 32.2 mmol/L (22-26); HGB O2 Sat 87.2 % (95-100); Ionized Calcium Level - ABG 1.1 mmol/L (1.1-1.4); Oxygen Device VENT; Oxygen Saturation ABG 88.3; PO2 ABG 54.8 mmHg (80.0-100.0); Potassium Level - ABG 2.8 mmol/L (3.5-5.0); Total Hemoglobin 16.9 g/dL (12-16)
[2020-12-14 05:42] LABS: Albumin Level 2.4 g/dL (3.5-5.2); Alkaline Phosphatase 280 IU/L (35-105); Blood Urea Nitrogen 63 mg/dL (8-23); Calcium 7.9 mg/dL (8.5-10.5); Carbon Dioxide 31 mmol/L (22-29); Chloride 100 mmol/L (98-107); Globulin 2.4 g/dL (1.3-4.6); Glucose 126 mg/dL (65-115); NT Pro B Type Natriuretic Pept 863 pg/mL (0-125); Osmolality Calculated 322 mOsm/kg (285-295); Sodium 146 mmol/L (136-145); Total Bilirubin 0.8 mg/dL (0.15-1.2); Total Protein 4.8 g/dL (6.6-8.7)
[2020-12-14] MEDS: famotidine 20 mg/2 mL INJ IVP ×2 (05:45→17:21)
[2020-12-14 05:57] LABS: Alanine Aminotransferase < 5 U/L (0-33); Aspartate Amino Transferase 53 U/L (0-32)
[2020-12-14 06:15] LABS: Slide Review Slide Review Perform
--- NOTE | 2020-12-14 07:29 | PC.NURSE ---
Shift Note Frequent safety and comfort rounds continue. Orders and/or nursing care completed as indicated. Patient monitored for response to intervention and treatment(s). Patient remains intubated/sedated, and therefore unable to comprehend information. Will continue to monitor.
[2020-12-14] MEDS: budesonide 0.5 mg/2 mL Neb INHALATION ×2 (07:49→20:58)
[2020-12-14] MEDS: dexamethasone 10 mg/mL INJ 6 MG IVP (08:44)
[2020-12-14] MEDS: FUROsemide 10 mg/mL SDV 10mL 80 MG IVP (09:00)
[2020-12-14] MEDS: nystatin powder 15 gm Btl 1 APPLIC TOPICAL ×2 (09:02→17:30)
--- NOTE | 2020-12-14 09:29 | PC.CHAP ---
Pastoral Care Encounter/Spiritual Assessment Type of Contact [] Declined mrp controller visit [] Patient/Family/Request visit [] Outpatient visit [] Follow-up visit [] Physician referral [] Code/Alert [x] Routine visit [] Staff referral [] Actively dying [] Patient sleeping [] Family support [] [] Out of room [] Palliative care [] [] Receiving care in room [] Pre-surgical visit [] Trauma [] Long length of stay [x] ICU visit [] Other: Relational/Emotional Strength [] Patient feels connected with others/family/visitors/staff [] Distress [] Loneliness/isolation [] Abandonment Spirituality of Patient [] Person of Monika [] Attends Judaism of their Monika [] Believes in Prayer [] Reads Bible or Baptism materials [] There are Spiritual issues to be addressed Awning Craftsman Interventions [x] Prayer [] Active listening [] Non-anxious presence [] Spiritual/emotional support [] Crisis/trauma care [] Spiritual counseling [] Bereavement support [] Provided bereavement packet [] Provided Bible/devotional materials [] Provided toy/stuffed animal, coloring book to patient or family member [] Provided Communion [] Anointing/[place] [] Salvation [x] Completed spiritual assessment [] Other: Impact on Illness or Injury [] Angry [] Fearful [] Anxious [] Often cries [] Exhaustion [] Unable to work [] Unable to attend orthodox [] Unable to walk/stand [] Unable to read [] Unable to drive [] Unable to eat/drink [] Unable to sleep [] Unable to be with family [] Patient intubated [] Other: Summary Time spent with patient
--- NOTE | 2020-12-14 10:00 | PC.NURSE ---
MAR Note/Medication
--- NOTE | 2020-12-14 10:10 | PC.NURSE ---
MAR/Medication Administration 0900 medications were pulled and crushed to administer to the patient. Dr. Reinoso placed new medications orders and crushed medications were wasted. New orders placed and Pharmacy called to see what needed to be done to give medications that had been pulled already. New ONE time orders placed to give medications.
[2020-12-14] MEDS: potassium chloride oral liq 20 mEq/15 mL UDC 80 MEQ PO (10:28)
[2020-12-14] MEDS: enoxaparin 100 mg/mL Syringe SUBCUT ×2 (10:28→22:50)
[2020-12-14] MEDS: polyethylene glycol 3350 Pkt 17 gm PO (10:28)
[2020-12-14] MEDS: ascorbic acid 500 mg Tablet PO ×3 (10:29→17:21)
[2020-12-14] MEDS: amlodipine 10 mg Tablet PO (10:29)
[2020-12-14] MEDS: zinc gluconate 50 mg Tablet PO (10:29)
[2020-12-14] MEDS: mupirocin oint 22 gm 1 APPLIC TOPICAL ×2 (10:30→17:30)
[2020-12-14] MEDS: insulin glargine 100 units/1 mL 40 UNIT SUBCUT (10:31)
[2020-12-14] MEDS: metoprolol tartrate 25 mg Tablet 50 MG PO ×2 (10:33→20:40)
--- NOTE | 2020-12-14 11:21 | PC.NURSE ---
Addendum entered by ANDREEA Arenas 12/14/20 11:28: Medication administration took place at 0933. Late entry noted. Original Note: OG Tube Medication Administration Placement of OG tube verified by morning chest x-ray and by auscultation of the stomach when air pushed through the tube. Tube feeding held before administration of medication. Residual checked and 20 mL of creamy liquid sergio back and placed back into tube. 50 mL of water given to flush the tube, 170 mL of medication and water mixture given and then 50 mL of water given. Patient tolerated well. Tube feeding resumed at 35 mL/hour and 250 mL flushes every 6 hours. Patient HOB 30 degrees. Will continue to monitor.
--- NOTE | 2020-12-14 11:38 | PC.SOCIAL ---
IMM not Updated IMM not Updated. Pt is still intubated & is not expected to d/c within the next 24-48hrs.
[2020-12-14 11:40] LABS: Glucose Point of Care 152 mg/dL (70-110)
[2020-12-14 11:40] LABS: Glucose Point of Care 228 mg/dL (70-110)
[2020-12-14 11:40] LABS: Glucose Point of Care 174 mg/dL (70-110)
[2020-12-14 11:40] LABS: Glucose Point of Care 165 mg/dL (70-110)
[2020-12-14 11:40] LABS: Glucose Point of Care 130 mg/dL (70-110)
[2020-12-14 11:40] LABS: Glucose Point of Care 161 mg/dL (70-110)
[2020-12-14 11:40] LABS: Glucose Point of Care 155 mg/dL (70-110)
[2020-12-14 13:09] LABS: Glucose Point of Care 368 mg/dL (70-110)
--- NOTE | 2020-12-14 15:14 | P.PN_ITS ---
Subjective Subjective: Interval history: Patient has remained critically sick. Hemodynamically stable. Still requiring 80% oxygen supplementation through mechanical ventilation to maintain saturation 90%. Currently on FiO2 80%, tidal volume 350, PEEP of 10. Documented urine output of 3 L in last 24 hours. Spoke in detail with patient's over the phone. He states patient has been having pain in bilateral ankles before she got sick with Covid. Medications: Reviewed: Yes Vitals/I&O/Wt Last Vital Signs Temp 96.6 F L 12/14/20 12:30 Pulse 99 12/14/20 15:07 Resp 22 H 12/14/20 15:07 BP 120/70 12/14/20 14:00 Pulse Ox 92 12/14/20 15:07 12/14/20 12/14/20 12/14/20 06:59 14:59 22:59 Intake Total 1147.262 / 2409.117 768.233 / 768.233 Output Total 1425 / 3325 1000 / 1000 Balance -277.738 / -915.883 -231.767 / -231.767 Weight last 48 hrs Weight 96.615 kg Weight 96.162 kg Physical Exam Narrative: EXAM NARRATIVE: General: Intubated, sedated HEENT: PERRLA, pupils bilaterally equal and reactive Chest: Bilateral bronchial breath sounds, coarse crackles present all over the lung gamboa bilaterally anterior more than posterior,, equal good air entry bilaterally CVS: S1-S2 regular, no murmurs,tachycardia, no gallops, no rubs Abdomen: Soft, nontender, no organomegaly, bowel sounds present Neuro: Intubated, sedated Urinary Catheter Management^: Stoddard: Cath Placed During This Visit: yes Reason for Continuing Indwelling Catheter: Accurate Measurement of Urinary Outp ut in Critically Ill Patients Urinary Catheter Date of Insertion: 12/05/20 Urinary Catheter Time of Insertion: 16:05 Data : 12/14/20 04:38 12/14/20 04:38 A&P Assessment and plan (1) ARDS (adult respiratory distress syndrome): Status: Acute (2) Acute respiratory failure due to COVID-19: Status: Acute (3) Pseudomonas pneumonia: Status: Acute (4) Diabetes: Status: Acute (5) Hypertension: Status: Acute (6) Hypernatremia: Status: Acute (7) Acidosis: Status: Acute Additional A&P Information Acute Respiratory Distress Syndrome due to COVID-19 Pneumonia and secondary bacterial Pseudomonas pneumonia: Post proning sessions. Continue sedation with fentanyl 125 and propofol 50. Patient has finished course of remdesivir. Wean dexamethasone down to 6 mg wean down dexamethasone to 6 mg daily. Continue monitor inflammatory markers including CRP, ESR, D-dimer every 48 hourly. Patient requiring high oxygen supplementation and D-dimer elevated for now start patient on full dose Lovenox with 1 mg/kg body weight every 12 hourly. Will monitor for anemia, blood loss. Sputum culture growing Pseudomonas. Patient having leukocytosis. Blood cultures so far remain negative. Urine Legionella, bacterial antigen negative. Leukocytosis while worsening. Continue with imipenem and Levaquin. X-ray bilateral ankles to rule out possible osteomyelitis given past medical history of complex fracture repair. For now restart linezolid. If ankle imaging concerning for osteomyelitis will consult podiatry/orthopedics depending on availability. Given ARDS we will try to keep patient as net negative as possible. Patient's BUN worsening. For now hold off on any further diuresis. Strict input output charting, daily weights. Echocardiogram done shows an EF of 65 to 70% with grade 2 diastolic dysfunction, RVSP of 24 mmHg without valvular abnormality. Hypernatremia Continue with free water flushes at 250 cc every 6 hour. Monitor BMP again in the evening. Diabetes Mellitus: Stop insulin drip. Start patient on Lantus 40 units subcu twice daily. Insulin sliding scale high-dose protocol q. 4 hourly. Change tube feedings to Glucerna. HTN: Goal blood pressure less than 140/90 mmHg. Switch over to oral amlodipine 10 mg daily, metoprolol 25 mg twice daily. Con tinue with metoprolol as needed every 6 hours. FEN Tube feedings. GI ppx Pepcid 20 mg IV BID Full dose Lovenox will help with DVT prophylaxis as well. Severely guarded prognosis. Patient's care discussed in detail with son over the phone who requested to talk to patient's Mr. Elkins. Spoke with Mr. Elkins on [phone]. he is the designated healthcare proxy along with son. We discussed that unfortunately patient has been intubated for around 9 days and is still requiring high oxygen supplementation up to 80% with worsening leukocytosis even though she is on broad-spectrum antibiotics as per the culture results. We discussed that patient currently being treated for COVID-19 pneumonia and superadded bacterial pneumonia. We also discussed worsening hypernatremia. Mr. Beltran states that patient was always a DNR/DNI and is not really sure why patient got intubated. For now he does not want any aggressive chest compressions if her heart stops. CODE STATUS change in the system. He states he would want to talk to patient's son in detail before making any further decision regarding goals of care. Attestations Medical Necessity Statement*: Requires further hospitalization for management of ARDS secondary COVID-19 pneumonia, secondary superimposed bacterial Pseudomonas pneumonia, ventilator dependent Critical Care Time: The high probability of a clinically significant, sudden or life threatening deterioration of the patient's [pulmonary, cardiac, endocrine, ID, social] system(s) required my full and direct attention, intervention and personal management. The critical care time is as shown. This time is in addition to time spent performing any reported procedures but includes the following: [x] Data and vital sign review and interpretation [x] Patient assessment, examination and intervention [x] Documentation [x] Medication orders and management Critical Care Time (min): 90 Coding Level of Care Code Acute Frame Opener for [facility] Fwd Diagnoses ARDS (adult respiratory distress syndrome) J80 Acute respiratory failure due to COVID-19 U07.1; J96.00 Pseudomonas pneumonia J15.1 Diabetes E11.9 Hypertension I10 Hypernatremia E87.0 Acidosis E87.2
--- NOTE | 2020-12-14 15:21 | XR_ITS ---
WS: [id number] Right ankle, AP view, 12/14/2020 Clinical Data: possible osteo Comparison: None. Findings: The patient has had a complex internal fixation of a right fibular fracture and a distal right tibial fracture. The right fibular fracture shows a plate with 5 orthopedic screws at the distal third of t he fibula. Distal to that repair there is a screw fragment in a irregular piece of the fibula. There is a plate and screw fixation of the distal right tibia including fusion of the right ankle. There is loss of bone mineralization of the medial malleolus. However no sequestrum is seen. There is no defi nite osteomyelitis but the loss of bony definition at the medial malleolus is suspicious for erosion. XR/XR ankle RT 1V [id number] Impression: 1. Complex repair of a distal right fibular fracture. 2. Complex repair of distal right tibial fracture with plate and multiple screw s along with fusion of the right ankle. 3. Loss of bony definition of the medial malleolus which could indicate an infe ction.
--- NOTE | 2020-12-14 15:21 | XR_ITS ---
WS: [id number] Left ankle, AP view, 12/14/2020 Clinical Data: possible osteo Comparison: None. Findings: The bimalleolar fracture of the left ankle has been repaired with a distal lateral fibular plate fixe d with multiple screws and oblique screws in the medial malleolus. The ankle mortise shows irregulari ty. There is no bone destruction or erosion on this AP view. XR/XR ankle LT 1V [id number] Impression: Repair of bimalleolar fracture of the left ankle.
[2020-12-14 17:03] LABS: Glucose Point of Care 443 mg/dL (70-110)
[2020-12-14] MEDS: linezolid premix 600 MG/300 ML PREMIX 300 MG IV (17:21)
--- NOTE | 2020-12-14 17:35 | PC.NURSE ---
OG Tube Medication Administration
--- NOTE | 2020-12-14 17:35 | PC.NURSE ---
Shift Note Frequent safety and comfort rounds continue. Orders and/or nursing care completed as indicated. Patient monitored for response to intervention and treatment(s). Patient remains intubated/sedated, and therefore unable to comprehend information. Insulin drip was stopped at 0930 today. Glucerna feeding started in place of [facility] at 35 mL/hour and 250 mL flushes every 4 hours. Will continue to monitor.
--- NOTE | 2020-12-14 18:01 | PC.NURSE ---
OG Tube Medication Administration Placement of OG tube verified by morning chest x-ray and by auscultation of the stomach when air pushed through the tube. Tube feeding held before administration of medication. Residual checked and 10 mL of creamy liquid serigo back and placed back into tube. 50 mL of water given to flush the tube, 10 mL of medication and water mixture given and then 50 mL of water given. Patient tolerated well. Tube feeding resumed at 35 mL/hour and 250 mL flushes every 4 hours. Patient HOB 30 degrees. Will continue to monitor.
--- NOTE | 2020-12-14 18:04 | PC.NUTR ---
Tube feeding recommendations: Current TF providing 1008 kcal per day, with propofol at 31.3 ml/hr providing 821 kcal/day, or 115% estimated kcal needs. 50 g protein meeting 83% estimated protein needs. Due to high propofol rate, continue to recommend TF rate of 30 ml/hr. Suggest addition of Beneprotein BID to provide 12 g protein with minimal kcal increase. See full RD assessment for further details.
[2020-12-14 20:27] LABS: Glucose Point of Care 346 mg/dL (70-110)
[2020-12-14] MEDS: insulin glargine 100 units/1 mL 60 UNIT SUBCUT (20:42)
[2020-12-15] VITALS (45 sets, daily range): BP systolic 90–177; BP diastolic 57–92; PULSE 100–123; RESP 22–29; TEMP 37.1–38.3; O2SAT 87–95
[2020-12-15 01:58] LABS: Glucose Point of Care 328 mg/dL (70-110)
[2020-12-15] MEDS: propofol 1,000 MG/100 ML INJ 31.3 MG IV ×6 (02:43→21:08)
[2020-12-15] MEDS: ipratropium-albuterol 3 mL Neb INHALATION ×7 (03:18→23:30)
[2020-12-15 04:42] LABS: Glucose Point of Care 239 mg/dL (70-110)
[2020-12-15 04:53] LABS: Hematocrit 38.8 % (37.0-47.0); Hemoglobin 12.4 g/dL (11.5-15.3); Mean Corpuscular Hemoglobin 28.9 pg (28.0-34.0); Mean Corpuscular Volume 90.4 fl (81-99); Platelet Count 265 10^3/cmm (130-400); Red Blood Count 4.29 10^6/uL (4.1-5.3); Red Cell Distribution Width 17.2 % (12.1-15.1)
[2020-12-15 05:08] LABS: Albumin Level 2.7 g/dL (3.5-5.2); Alkaline Phosphatase 171 IU/L (35-105); Blood Urea Nitrogen 80 mg/dL (8-23); Calcium 8.2 mg/dL (8.5-10.5); Carbon Dioxide 28 mmol/L (22-29); Chloride 98 mmol/L (98-107); Globulin 2.1 g/dL (1.3-4.6); Glucose 181 mg/dL (65-115); Osmolality Calculated 321 mOsm/kg (285-295); Sodium 141 mmol/L (136-145); Total Bilirubin 0.7 mg/dL (0.15-1.2); Total Protein 4.8 g/dL (6.6-8.7)
[2020-12-15 05:09] LABS: ABG PCO2 43.4 mmHg (35-45); ABG PH Result 7.46 (7.35-7.45); Alveolar-Arterial Oxygen Gradi 58.1 mmHg (5-10); Arterial Blood Gas Hematocrit 37.8 % (37-47); Base Excess ABG 6.6 mmol/L (-2.0-2.0); Blood Gas Allen Test Pos; Blood Gas Operator Identificat HARKR; Blood Gas Sample Site Radial, right; Blood Gas Sample Type Arterial; Carboxyhemoglobin 0.2 %THgb (0.4-20.1); HCO3 ABG 31.1 mmol/L (22-26); HGB O2 Sat 91.2 % (95-100); Ionized Calcium Level - ABG 1.1 mmol/L (1.1-1.4); Methemoglobin 1.5 % (0.4-1.5); Oxygen Device VENT; Oxygen Saturation ABG 92.7; Potassium Level - ABG 4.3 mmol/L (3.5-5.0); Total Hemoglobin 12.3 g/dL (12-16)
[2020-12-15 05:11] LABS: Anion Gap 19.4 (5-19); Potassium 4.4 mmol/L (3.5-5.1)
[2020-12-15] MEDS: linezolid premix 600 MG/300 ML PREMIX 300 MG IV ×2 (05:13→16:21)
[2020-12-15 05:14] LABS: D Dimer 1.46 ug/mIFEU (0-0.59)
[2020-12-15 05:15] LABS: C Reactive Protein 8.2 mg/L (0.0-4.9); NT Pro B Type Natriuretic Pept 970 pg/mL (0-125)
[2020-12-15 05:51] LABS: Erythrocyte Sedimentation Rate 19 mm/hr (0-15)
[2020-12-15] MEDS: famotidine 20 mg/2 mL INJ IVP ×2 (05:58→18:16)
--- NOTE | 2020-12-15 06:00 | XR_ITS ---
WS: [id number] Portable AP semiupright chest, 12/15/2020 Clinical Data: covid Comparison: Portable chest, 12/13/2020. Findings: The bilateral patchy opacities in both lungs remain the same. The endotracheal tube remains 1 cm above the lashay. Nasogastric tube and right internal jugular venous catheter have not changed. Monitor leads are on the chest wall. XR/XR chest 1V portable [id number] Impression: 1. No change in patchy bilateral pulmonary opacities. 2. No change in multiple tubes.
[2020-12-15 06:15] LABS: Slide Review Slide Review Perform
[2020-12-15 06:16] LABS: Absolute Eosinophils 0.4 10^3/cmm (0.0-0.7); Absolute Segmented Neutrophil 34.5 10/cmm (1.6-7.1); Band Neutrophils Absolute 4.5 10^3/cmm (0.0-1.2); Eosinophils 1 %; Lymphocytes 7 %; Lymphocytes Absolute 3.1 10^3/cmm (1.2-3.4); Monocytes Absolute 0.4 10^3/cmm (0.1-0.6); Platelet Estimate Normal (Normal); Segmented Neutrophils 77 %; Total Cells Counted 100 (0-100); White Blood Count 44.8 10^3/uL (4.0-10.0)
[2020-12-15 08:29] LABS: Alanine Aminotransferase 16 U/L (0-33)
[2020-12-15 08:38] LABS: Aspartate Amino Transferase 28 U/L (0-32)
[2020-12-15] MEDS: budesonide 0.5 mg/2 mL Neb INHALATION ×2 (08:48→19:33)
--- NOTE | 2020-12-15 09:00 | CTR_ITS ---
PROCEDURE INFORMATION: Exam: CT Right Lower Extremity Without Contrast, Ankle Exam date and time: 12/15/2020 9:00 AM Age: 70 years old Clinical indication: Other: Osteo; Prior surgery; Additional info: Possible osteo TECHNIQUE: Imaging protocol: CT of the Right lower extremity without contrast was performed. Exam focused on the ankle. Radiation optimization: All CT scans at this facility use at least one of these dose optimization techniques: automated exposure control; mA and/or kV adjustment per patient size (includes targeted exams where dose is matched to clinical indication); or iterative reconstruction. COMPARISON: CR XR ankle RT 1V [id number] 12/14/2020 3:43 PM RADIATION DOSE METRICS: Total DLP (mGy-cm): 115.67 FINDINGS: Bones/joints: Sequela of ORIF including buttressing plates and multiple anchoring screws in the distal fibula and tibia. Surgical hardware appears intact aside from a small residual screw fragment seen in the distal fibula. No irregular cortical osseous erosions. Soft tissues: No subcutaneous emphysema or fluid-filled tract seen extending to the osseous structures. CT/CT ankle RT wo con* [id number] IMPRESSION: No evidence of acute osteomyelitis. Radiation Dose CTDIVOL = (mGy): DLP = 115.67 (mGy-cm)
[2020-12-15 09:45] LABS: Glucose Point of Care 142 mg/dL (70-110)
[2020-12-15] MEDS: amlodipine 10 mg Tablet PO (10:15)
[2020-12-15] MEDS: ascorbic acid 500 mg Tablet PO ×2 (10:15→18:16)
[2020-12-15] MEDS: dexamethasone 10 mg/mL INJ 6 MG IVP (10:15)
[2020-12-15] MEDS: zinc gluconate 50 mg Tablet PO (10:16)
[2020-12-15] MEDS: metoprolol tartrate 25 mg Tablet 50 MG PO ×2 (10:16→22:24)
[2020-12-15] MEDS: mupirocin oint 22 gm 1 APPLIC TOPICAL ×2 (10:17→18:19)
[2020-12-15] MEDS: polyethylene glycol 3350 Pkt 17 gm PO (10:17)
[2020-12-15] MEDS: enoxaparin 100 mg/mL Syringe SUBCUT ×2 (10:21→22:25)
--- NOTE | 2020-12-15 10:46 | PM.PN ---
Subjective Subjective: Interval history: Patient has remained clinically sick though hemodynamically stable. Overnight T-max 99.7 Fahrenheit. Continues to remain intubated. On 85% FiO2 saturating 92%. On sedation with propofol and fentanyl. Fentanyl coming down to 100 today. Urine output documented in last 24 hours around 2 L. Patient had one episode of bowel movement last night after getting bowel regimen in the morning. Medications: Reviewed: Yes Vitals/I&O/Wt Last Vital Signs Temp 98.7 F 12/15/20 04:00 Pulse 116 H 12/15/20 08:45 Resp 22 H 12/15/20 08:45 BP 102/68 12/15/20 03:00 Pulse Ox 91 12/15/20 08:45 12/14/20 12/15/20 12/15/20 22:59 06:59 14:59 Intake Total 679.815 / 9206.795 6578.248 / 3508.296 100 / 100 Output Total 1025 / 2025 Balance 679.815 / 544.776 0952.248 / 1483.296 100 / 100 Weight last 48 hrs Weight 95.708 kg Weight 96.615 kg Physical Exam Narrative: EXAM NARRATIVE: General: Intubated, sedated HEENT: PERRLA, pupils bilaterally equal and reactive Chest: Bilateral bronchial breath sounds, coarse crackles present all over the lung gamboa bilaterally anterior more than posterior,, equal good air entry bilaterally CVS: S1-S2 regular, no murmurs,tachycardia, no gallops, no rubs Abdomen: Soft, nontender, no organomegaly, bowel sounds present Neuro: Intubated, sedated Urinary Catheter Management^: Stoddard: Cath Placed During This Visit: yes Reason for Continuing Indwelling Catheter: Accurate Measurement of Urinary Output in Critically Ill Patients Urinary Catheter Date of Insertion: 12/05/20 Urinary Catheter Time of Insertion: 16:05 Data : 12/15/20 04:30 12/15/20 04:30 A&P Assessment and plan (1) ARDS (adult respiratory distress syndrome): Status: Acute (2) Acute respiratory failure due to COVID-19: Status: Acute (3) Pseudomonas pneumonia: Status: Acute (4) Diabetes: Status: Acute (5) Hypertension: Status: Acute (6) Hypernatremia: Status: Acute (7) Acidosis: Status: Acute Additional A&P Information Acute Respiratory Distress Syndrome due to COVID-19 Pneumonia and secondary bacterial Pseudomonas pneumonia: Post proning sessions. Continue sedation fentanyl and propofol Patient has finished course of remdesivir. Dexamethasone 6 mg IV daily. Continue monitor inflammatory markers including CRP, ESR, D-dimer every 48 hourly. For now ESR and CRP has remained low stable. ESR 19, CRP around 8 for last 4 days. Patient requiring high oxygen supplementation and D-dimer elevated for now start patient on full dose Lovenox with 1 mg/kg body weight every 12 hourly. Will monitor for anemia, blood loss. Sputum culture growing Pseudomonas. Blood cultures so far remain negative. Urine Legionella, bacterial antigen negative. Leukocytosis while worsening. Continue with imipenem and Levaquin. X-ray ankle is concerning for possible osteomyelitis on the right side. CT ankle requested. Check stool studies to rule out C. difficile. Continue with linezolid. Case discussed with Dr. Stover. Plan for [facility] in the evening today. We will send for sputum culture to rule out fungal infection. Given ARDS we will try to keep patient as net negative as possible. Patient's BUN worsening. For now hold off on any further diuresis. Strict input output charting, daily weights. Echocardiogram done shows an EF of 65 to 70% with grade 2 diastolic dysfunction, RVSP of 24 mmHg without valvular abnormality. Hypernatremia: Resolving. Continue with free water flushes at 250 cc every 6 hour. Monitor BMP again in the evening. Diabetes Mellitus: Blood sugars better today. Lantus 30 units twice daily. Insulin sliding scale high-dose protocol q. 4 hourly. HTN: Goal blood pressure less than 140/90 mmHg. Continue with amlodipine 10 mg daily, metoprolol 25 mg twice daily. Continue with metoprolol as needed every 6 hours. FEN Tube feedings. Glucerna at 35 cc/h, free water flushes to 50 every 6 hours. Target tube feedings around 50 cc/h. GI ppx Pepcid 20 mg IV BID Full dose Lovenox will help with DVT prophylaxis as well. Severely guarded prognosis. Patient's care discussed in detail with son over the phone who requested to talk to patient's Mr. Elkins. Spoke with Mr. Elkins on [phone] he is the designated healthcare proxy along with son. We discussed that unfortunately patient has been intubated for around 9 days and is still requiring high oxygen supplementation up to 80% with worsening leukocytosis even though she is on broad-spectrum antibiotics as per the culture results. We discussed that patient currently being treated for COVID-19 pneumonia and superadded bacterial pneumonia. We also discussed worsening hypernatremia. Mr. Beltran states that patient was always a DNR/DNI and is not really sure why patient got intubated. For now he does not want any aggressive chest compressions if her heart stops. CODE STATUS change in the system. He states he would want to talk to patient's son in detail before making any further decision regarding goals of care. Attestations Medical Necessity Statement*: Requires further hospital acute respiratory distress syndrome, ventilator dependent secondary to COVID-19 and Pseudomonas pneumonia, sepsis Critical Care Time: The high probability of a clinically significant, sudden or life threatening deterioration of the patient's [pulmonary, cardiac, renal, endocrine] system(s) required my full and direct attention, intervention and personal management. The critical care time is as shown. 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
[2020-12-15] MEDS: lanolin oint 7 gm 1 APPLIC TOPICAL (10:57)
[2020-12-15] MEDS: nystatin powder 15 gm Btl 1 APPLIC TOPICAL ×2 (11:01→18:20)
[2020-12-15] MEDS: insulin glargine 100 units/1 mL 30 UNIT SUBCUT ×2 (11:02→22:24)
[2020-12-15 11:54] LABS: Procalcitonin 0.52 ng/mL (0-0.5)
[2020-12-15 13:26] LABS: Glucose Point of Care 151 mg/dL (70-110)
[2020-12-15 19:07] LABS: Glucose Point of Care 284 mg/dL (70-110)
[2020-12-15] MEDS: acetaminophen 325 mg Tablet 650 MG PO (19:11)
[2020-12-16] VITALS (55 sets, daily range): BP systolic 89–147; BP diastolic 52–91; PULSE 96–136; RESP 22–26; TEMP 36.9–37.9; O2SAT 90–96; BMI 38.2
[2020-12-16] MEDS: propofol 1,000 MG/100 ML INJ 31.3 MG IV ×5 (00:06→12:40)
[2020-12-16 00:58] LABS: Glucose Point of Care 238 mg/dL (70-110)
[2020-12-16] MEDS: ipratropium-albuterol 3 mL Neb INHALATION ×5 (03:57→21:42)
[2020-12-16 04:12] LABS: Basophils # 0.1 10^3/uL (0.0-0.1); Basophils % 0.2 %; Eosinophils # 0.1 10^3/uL (0.0-0.8); Eosinophils % 0.1 %; Hemoglobin 12.3 g/dL (11.5-15.3); Lymphocytes # 3.7 10^3/uL (0.8-4.8); Lymphocytes % 6.1 %; Mean Corpuscular HGB Conc 33.2 g/dL (30.0-36.0); Mean Corpuscular Volume 90.2 fl (81-99); Monocytes # 3.7 10^3/uL (0.2-0.9); Monocytes % 6.2 %; Neutrophils # 46.34 10^3/uL (1.8-7.7); Neutrophils % 77.6 %; Nucleated Red Blood Cells # 0.7 /100WBC; Nucleated Red Blood Cells % 1.1 %; Platelet Count 244 10^3/cmm (130-400); Red Cell Distribution Width 16.9 % (12.1-15.1)
[2020-12-16 04:37] LABS: Albumin Level 2.7 g/dL (3.5-5.2); Alkaline Phosphatase 176 IU/L (35-105); Blood Urea Nitrogen 75 mg/dL (8-23); C Reactive Protein 9.4 mg/L (0.0-4.9); Calcium 7.8 mg/dL (8.5-10.5); Carbon Dioxide 24 mmol/L (22-29); Chloride 93 mmol/L (98-107); Globulin 2.3 g/dL (1.3-4.6); Glucose 198 mg/dL (65-115); Osmolality Calculated 306 mOsm/kg (285-295); Sodium 134 mmol/L (136-145); Total Bilirubin 1.1 mg/dL (0.15-1.2)
[2020-12-16 04:40] LABS: Anion Gap 21.5 (5-19); Potassium 4.5 mmol/L (3.5-5.1)
[2020-12-16 04:49] LABS: Alanine Aminotransferase < 5 U/L (0-33); Aspartate Amino Transferase 5 U/L (0-32)
[2020-12-16 05:34] LABS: Erythrocyte Sedimentation Rate 14 mm/hr (0-15)
[2020-12-16] MEDS: linezolid premix 600 MG/300 ML PREMIX 300 MG IV ×2 (06:15→18:11)
[2020-12-16 06:16] LABS: Glucose Point of Care 213 mg/dL (70-110)
[2020-12-16] MEDS: famotidine 20 mg/2 mL INJ IVP ×2 (06:16→18:10)
--- NOTE | 2020-12-16 07:00 | PC.NURSE ---
Shift Note Frequent safety and comfort rounds continue. Orders and/or nursing care completed as indicated. Patient monitored for response to intervention and treatment(s). Education provided includes[]. Patient and/or cash posting representative [ResponseToTeaching]. Will continue to monitor. I talked with a son of the patient at the beginning of the shift. The patient had an uneventful night and did well with her current ventilator settings. She had a mild grade fever for part of the shift, but last temp taken at the end was 98.5. There were no other changes and blood sugar continued to trend down.
[2020-12-16 07:21] LABS: White Blood Count 59.7 10^3/uL (4.0-10.0)
[2020-12-16 07:22] LABS: Slide Review Slide Review Perform
[2020-12-16] MEDS: budesonide 0.5 mg/2 mL Neb INHALATION ×2 (08:11→21:42)
[2020-12-16 09:27] LABS: Glucose Point of Care 210 mg/dL (70-110)
[2020-12-16] MEDS: ascorbic acid 500 mg Tablet PO ×2 (09:41→18:10)
[2020-12-16] MEDS: dexamethasone 10 mg/mL INJ 6 MG IVP (09:41)
[2020-12-16] MEDS: zinc gluconate 50 mg Tablet PO (09:41)
[2020-12-16] MEDS: metoprolol tartrate 25 mg Tablet 50 MG PO ×2 (09:41→22:22)
[2020-12-16] MEDS: amlodipine 10 mg Tablet PO (09:41)
[2020-12-16] MEDS: nystatin powder 15 gm Btl 1 APPLIC TOPICAL ×2 (09:44→18:11)
[2020-12-16] MEDS: insulin glargine 100 units/1 mL 30 UNIT SUBCUT ×2 (09:44→22:21)
[2020-12-16] MEDS: mupirocin oint 22 gm 1 APPLIC TOPICAL ×2 (09:44→18:12)
[2020-12-16] MEDS: enoxaparin 100 mg/mL Syringe SUBCUT ×2 (12:40→22:23)
[2020-12-16] MEDS: FUROsemide 10 mg/mL SDV 4mL 40 MG IVP (12:40)
--- NOTE | 2020-12-16 13:42 | PC.SOCIAL ---
IMM Update pg 2 of IMM not updated; patient remains in critical condition and will not be discharging in the next 24-48hours.
[2020-12-16 14:00] LABS: Glucose Point of Care 203 mg/dL (70-110)
--- NOTE | 2020-12-16 14:32 | PC.NUTR ---
Tube feeding recommendations: Recommend to decrease free water flushes given low Na--notified Dr. Reinoso and received order to change to 100 ml q6. Glucerna 1.2 at 35 ml/hr with 100 ml H2O q6 will provide 1008 kcal, 50 g protein, and 1276 ml H20. Propofol at 31.3 ml/hr providing 826 kcal/day. Continue to recommend consideration of decreasing TF to 30 ml/hr, and adding Beneprotein BID for additional 12 g protein with minimal kcal increase, as current TF with propofol is providing over 100% estimated kcal needs but only 83% protein needs. Also recommend checking triglycerides when appropriate..See full RD assessment for further details.
--- NOTE | 2020-12-16 16:11 | P.PN_ITS ---
Subjective Subjective: Interval history: Patient has remained clinically sick though hemodynamically stable. On 85% FiO2 saturating 92%. On sedation with propofol and fentanyl. Urine output documented in last 24 hours around 2 L. Had bronch in evening showing purulent discharge. Sent for Cx. Stool negative for C.diff. Urine catheter changed. Medications: Reviewed: Yes Vitals/I&O/Wt Last Vital Signs Temp 98.7 F 12/16/20 14:00 Pulse 127 H 12/16/20 15:00 Resp 22 H 12/16/20 11:42 BP 111/67 12/16/20 15:00 Pulse Ox 91 12/16/20 11:42 12/16/20 12/16/20 12/16/20 06:59 14:59 22:59 Intake Total 1637.093 / 2577.646 300 / 300 Output Total 900 / 900 800 / 800 Balance 737.093 / 1677.646 300 / 300 -800 / -500 Weight last 48 hrs Weight 94.801 kg Weight 95.708 kg Physical Exam Narrative: EXAM NARRATIVE: General: Intubated, sedated HEENT: PERRLA, pupils bilaterally equal and reactive Chest: Bilateral bronchial breath sounds, coarse crackles present all over the lung gamboa bilaterally anterior more than posterior,, equal good air entry bilaterally CVS: S1-S2 regular, no murmurs,tachycardia, no gallops, no rubs Abdomen: Soft, nontender, no organomegaly, bowel sounds present Neuro: Intubated, sedated Urinary Catheter Management^: Stoddard: Cath Placed During This Visit: yes Reason for Continuing Indwelling Catheter: Accurate Measurement of Urinary Output in Critically Ill Patients Urinary Catheter Date of Insertion: 12/05/20 Urinary Catheter Time of Insertion: 16:05 Data : 12/17/20 05:00 12/17/20 05:00 Micro: Microbiology 12/15/20 11:00 Stool Lactoferrin - Final Stool C.difficile Toxin B Gene (PCR) - Final Occult Blood (FIT) - Final A&P Assessment and plan (1) ARDS (adult respiratory distress syndrome): Status: Acute (2) Acute respiratory failure due to COVID-19: Status: Acute (3) Pseudomonas pneumonia: Status: Acute (4) Diabetes: Status: Acute (5) Hypertension: Status: Acute (6) Hypernatremia: Status: Acute (7) Acidosis: Status: Acute Additional A&P Information Acute Respiratory Distress Syndrome due to COVID-19 Pneumonia and secondary bacterial Pseudomonas pneumonia: Post proning sessions. Continue sedation fentanyl and propofol Patient has finished course of remdesivir. Dexamethasone 6 mg IV daily. Stop dexamethasone. Continue monitor inflammatory markers including CRP, ESR, D-dimer every 48 hourly. For now ESR and CRP has remained low stable. ESR 19, CRP around 8 for last 4 days. Patient requiring high oxygen supplementation and D-dimer elevated for now start patient on full dose Lovenox with 1 mg/kg body weight every 12 hourly. Will monitor for anemia, blood loss. Sputum culture growing Pseudomonas. Blood cultures so far remain negative. Urine Legionella, bacterial antigen negative. Leukocytosis while worsening. Continue with imipenem and Levaquin. CT ankle negative, C.diff negative. Change to vancomycin. Cver for fungus with Voriconazole. Appreciate Pulm recs. Given ARDS we will try to keep patient as net negative as possible. Patient's BUN worsening. For now hold off on any further diuresis. Strict input output charting, daily weights. Echocardiogram done shows an EF of 65 to 70% with grade 2 diastolic dysfunction, RVSP of 24 mmHg without valvular abnormality. Hypernatremia: Resolving. Continue with free water flushes at 100 cc every 6 hour. Monitor BMP again in the evening. Diabetes Mellitus: Blood sugars better today. Lantus 30 units twice daily. Insulin sliding scale high-dose protocol q. 4 hourly. HTN: Goal blood pressure less than 140/90 mmHg. Continue with amlodipine 10 mg daily, metoprolol 25 mg twice daily. Continue with metoprolol as needed every 6 hours. FEN Tube feedings. Glucerna at 35 cc/h, free water flushes to 100 every 6 hours. Target tube feedings around 50 cc/h. GI ppx Pepcid 20 mg IV BID Full dose Lovenox will help with DVT prophylaxis as well. Severely guarded prognosis. Patient's care discussed in detail with son over the phone who requested to talk to patient's Mr. Elkins. Spoke with Mr. Elkins on [phone]. he is the designated healthcare proxy along with son. We discussed that unfortunately jada mcclain has been intubated for around 9 days and is still requiring high oxygen supplementation up to 80% with worsening leukocytosis even though she is on broad-spectrum antibiotics as per the culture results. We discussed that patient currently being treated for COVID-19 pneumonia and superadded bacterial pneumonia. We also discussed worsening hypernatremia. Mr. Beltran states that patient was always a DNR/DNI and is not really sure why patient got intubated. For now he does not want any aggressive chest compressions if her heart stops. CODE STATUS change in the system. He states he would want to talk to patient's son in detail before making any further decision regarding goals of care. Attestations Medical Necessity Statement*: Requires further hospital acute respiratory distress syndrome, ventilator dependent secondary to COVID-19 and Pseudomonas pneumonia, sepsis Critical Care Time: The high probability of a clinically significant, sudden or life threatening deterioration of the patient's [pulm, ID] system(s) required my full and direct attention, intervention and personal management. The critical care time is as shown. This time is in addition to time spent performing any reported procedures but includes the following: [x] Data and vital sign review and interpretation [x] Patient assessment, examination and intervention [x] Documentation [x] Medication orders and management Critical Care Time (min): 90 Coding Level of Care Code Acute Brand Sales Consultant for [facility] Fwd Diagnoses ARDS (adult respiratory distress syndrome) J80 Acute respiratory failure due to COVID-19 U07.1; J96.00 Pseudomonas pneumonia J15.1 Diabetes E11.9 Hypertension I10 Hypernatremia E87.0 Acidosis E87.2
--- NOTE | 2020-12-16 18:14 | CTR_ITS ---
PROCEDURE INFORMATION: Exam: CTA Chest With Contrast Exam date and time: 12/16/2020 6:14 PM Age: 70 years old Clinical indication: Shortness of breath; Prior surgery; Surgery type: Breast lumpectomy. ; Patient HX: Persistent sepsis with increasing wbc over 60k. Elevated ddimer. Covid +. Intubated with central line, og tube, and rectal tube in place. ; Additional info: Persistent sepsis, covid TECHNIQUE: Imaging protocol: Computed tomographic angiography of the chest with contrast. 3D rendering (Not supervised by radiologist): MIP and/or 3D reconstructed images were created by the technologist. Radiation optimization: All CT scans at this facility use at least one of these dose optimization techniques: automated exposure control; mA and/or kV adjustment per patient size (includes targeted exams where dose is matched to clinical indication); or iterative reconstruction. Contrast material: VISI 320; Contrast volume: 95 ml; Contrast route: INTRAVENOUS (IV); COMPARISON: CT angio chest PE protcl [id number] 12/05/2020 6:10 PM RADIATION DOSE METRICS: Total DLP (mGy-cm): 2298.51 FINDINGS: Tubes, catheters and devices: Support tubes and lines are in good position. Pulmonary arteries: No pulmonary embolism. Aorta: Unremarkable. No aortic aneurysm. No aortic dissection. Lungs: Mild interval improvement without resolution of bilateral pulmonary infiltrates. Pleural spaces: New small left pleural effusion. Heart: Unremarkable. No cardiomegaly. No pericardial effusion. Lymph nodes: Unremarkable. No enlarged lymph nodes. Bones/joints: Unremarkable. No acute fracture. Soft tissues: Unremarkable. IMPRESSION: 1. No pulmonary embolism. 2. Support tubes and lines are in good position. 3. New small left pleural effusion. 4. Mild interval improvement without resolution of bilateral pulmonary infiltrates. PROCEDURE INFORMATION: Exam: CT Abdomen And Pelvis With Contrast Exam date and time: 12/16/2020 6:14 PM Age: 70 years old Clinical indication: Shortness of breath; Prior surgery; Surgery type: Breast lumpectomy. ; Patient HX: Persistent sepsis with increasing wbc over 60k. Elevated ddimer. Covid +. Intubated with central line, og tube, and rectal tube in place. ; Additional info: Persistent sepsis, covid TECHNIQUE: Imaging protocol: Computed tomography of the abdomen and pelvis with contrast. Radiation optimization: All CT scans at this facility use at least one of these dose optimization techniques: automated exposure control; mA and/or kV adjustment per patient size (includes targeted exams where dose is matched to clinical indication); or iterative reconstruction. Contrast material: VISI 320; Contrast volume: 95 ml; Contrast route: INTRAVENOUS (IV); COMPARISON: CT angio chest PE protcl [id number] 12/05/2020 6:10 PM RADIATION DOSE METRICS: Total DLP (mGy-cm): 2298.51 FINDINGS: Lungs: The lung bases are clear. No effusion Liver: 1.5 cm hepatic cyst. Gallbladder and bile ducts: Gallbladder is normal. Pancreas: Pancreas is normal. Spleen: Spleen is normal. Adrenal glands: Adrenals are normal. Kidneys and ureters: There is a subcentimeter low-attenuation lesion/lesions, of the right kidney which are too small to accurately characterize by CT. Stomach and bowel: Unremarkable. No obstruction. No mucosal thickening. Appendix: No evidence of appendicitis. Intraperitoneal space: Unremarkable. No free air. No significant fluid collection. Vasculature: Unremarkable. No abdominal aortic aneurysm. Lymph nodes: Unremarkable. No enlarged lymph nodes. Urinary bladder: There is a Stoddard catheter with the balloon present in the urinary bladder. Reproductive: 5.7 by 4.2 cm right ovarian cyst with thin septation. Right hydrosalpinx. Bones/joints: Unremarkable. No acute fracture. Soft tissues: Unremarkable. CT/CT angio chest w abd pel w con IMPRESSION: 1. 5.7 by 4.2 cm right ovarian cyst with thin septation. Further evaluation with prompt non-emergent ultrasound is recommended to characterize. (Reference: Devin) 2. Right hydrosalpinx. COMMENTS: Consistent with the [employer]'s Incidental Findings Committee white paper (J Am Shakeel Radiol 2018): Any incidental renal lesion less than 1 cm or classified as too small to characterize, or any incidental cystic renal lesion characterized as simple-appearing, is likely benign. No follow-up imaging is recommended for these lesions per consensus recommendations based on imaging criteria. REFERENCES: Devin et al. Management of Incidental Adnexal Findings on CT and MRI: A White Paper of the ACR Incidental Findings Committee, J Am Shakeel Radiol. 2019;17(2):248-254. Radiation Dose CTDIVOL = (mGy): DLP = 2298.51~2298.51 (mGy-cm)
[2020-12-16 18:36] LABS: Glucose Point of Care 210 mg/dL (70-110)
--- NOTE | 2020-12-16 18:59 | PM.ACPR ---
Procedure/Consent Time out: Time Out Performed: Yes Consent: Consent for Procedure: Emergency procedure Procedure Narrative: Name of the procedure: Bronchoscopy. Indication: Acute hypoxic respiratory failure in the setting of multifocal pneumonia, COVID-19 requiring intubation. Medication: The patient is on intravenous fentanyl and propofol drip. Description of the procedure: The patient was intubated for acute hypoxic respiratory failure. 1% lidocaine 5 mL was introduced through the ET tube. The bronchoscope was advanced through the ET tube. The lower trachea was erythematous. The lashay was sharp. There was erythema present throughout bilateral airways with areas of petechial hemorrhage. In a systematic manner, bilateral airways were examined. The bronchoscope was introduced in his left mainstem bronchus. The left upper lobe, lingula and lower lobe bronchi were sequentially examined up to the third subsegmental level. No endobronchial lesions or mucous plug was identified. The bronchoscope was then introduced into the right mainstem bronchus. The right upper lobe, middle lobe and lower lobe bronchi were examined up to the third subsegmental level. No endobronchial lesions were identified there are no mucous plugs. Bronchoalveolar lavage was performed from the medial segment of the right middle lobe. 30 cc of fluid was administered, fluid return was 25 mL. The fluid was turbid and pus looking. Specimen was sent for Gram stain and culture, fungal stain and culture.. BAL galactomannan was sent as well. Complications: No immediate complication was noted. Acute Procedures Epistaxis Control: Time out performed: Yes
[2020-12-16] MEDS: acetaminophen 325 mg Tablet 650 MG PO (19:12)
[2020-12-16] MEDS: propofol 1,000 MG/100 ML INJ 21.91 MG IV (20:00)
[2020-12-16 20:59] LABS: Urine Color Yellow (Yellow)
[2020-12-16 21:00] LABS: Bilirubin Urine Neg (Negative); Blood Urine 3+ (Negative); Glucose Urine UA Norm (Normal); Ketones Urine 1+ (Negative); Leukocyte Esterase Urine Trace (Negative); Nitrate Urine Negative (Negative); Protein Urine Neg (Negative); Urobilinogen Urine Norm (Negative); pH Urine 5 (5-7)
[2020-12-16 21:01] LABS: Add Urine Culture? No; Bacteria Urine 1+ /hpf; Transitional Epi Cells Urine 0-4 /hpf
[2020-12-16 21:45] LABS: Glucose Point of Care 165 mg/dL (70-110)
[2020-12-16] MEDS: vancomycin 1,500 MG/300 ML PIGGYBACK 200 MG IV (22:20)
[2020-12-17] VITALS (53 sets, daily range): BP systolic 82–119; BP diastolic 44–70; PULSE 82–116; RESP 22–38; TEMP 36.5–38.3; O2SAT 50–95; BMI 38.2
[2020-12-17] MEDS: ipratropium-albuterol 3 mL Neb INHALATION ×7 (00:50→23:43)
[2020-12-17] MEDS: iodixanol 320 mg/mL 100mL Btl IV (03:31)
--- NOTE | 2020-12-17 03:45 | PC.NURSE ---
We left down to CT with the respiratory therapist at 0320 and returned the patient back to ICU-05 at 0345. There were no complications that occurred on your way there and back. The patient was hooked up to a portable monitor.
[2020-12-17] MEDS: propofol 1,000 MG/100 ML INJ 21.91 MG IV ×2 (04:48→11:15)
[2020-12-17 05:09] LABS: Glucose Point of Care 318 mg/dL (70-110)
[2020-12-17 05:09] LABS: Glucose Point of Care 124 mg/dL (70-110)
[2020-12-17 05:27] LABS: Basophils # 0.1 10^3/uL (0.0-0.1); Basophils % 0.2 %; Eosinophils % 0.1 %; Hematocrit 30.3 % (37.0-47.0); Hemoglobin 10.3 g/dL (11.5-15.3); Lymphocytes # 3.7 10^3/uL (0.8-4.8); Lymphocytes % 6.5 %; Mean Corpuscular Hemoglobin 29.9 pg (28.0-34.0); Mean Corpuscular Volume 88.1 fl (81-99); Mean Platelet Volume 13.2 fL (7.4-10.4); Monocytes # 4.2 10^3/uL (0.2-0.9); Monocytes % 7.3 %; Neutrophils # 44.34 10^3/uL (1.8-7.7); Neutrophils % 76.7 %; Nucleated Red Blood Cells # 0.9 /100WBC; Nucleated Red Blood Cells % 1.6 %; Platelet Count 166 10^3/cmm (130-400); Red Blood Count 3.44 10^6/uL (4.1-5.3); Red Cell Distribution Width 16.4 % (12.1-15.1)
[2020-12-17] MEDS: famotidine 20 mg/2 mL INJ IVP (05:45)
[2020-12-17 05:53] LABS: Procalcitonin 1.07 ng/mL (0-0.5)
[2020-12-17 05:55] LABS: Albumin Level 2.3 g/dL (3.5-5.2); Alkaline Phosphatase 128 IU/L (35-105); Calcium 7.3 mg/dL (8.5-10.5); Carbon Dioxide 24 mmol/L (22-29); Chloride 96 mmol/L (98-107); Globulin 1.3 g/dL (1.3-4.6); Glucose 99 mg/dL (65-115); Osmolality Calculated 311 mOsm/kg (285-295); Sodium 137 mmol/L (136-145); Total Bilirubin 1.3 mg/dL (0.15-1.2); Total Protein 3.6 g/dL (6.6-8.7)
--- NOTE | 2020-12-17 06:00 | XRR_ITS ---
PROCEDURE INFORMATION: Exam: XR Chest Exam date and time: 12/17/2020 6:00 AM Age: 70 years old Clinical indication: Condition or disease; Lung condition and disease; Viral; Patient HX: F/u covid pneumonia. Intubated. TECHNIQUE: Imaging protocol: XR of the chest. Views: 1 view. COMPARISON: CR XR chest 1V portable [id number] 12/15/2020 5:34 AM FINDINGS: Tubes, catheters and devices: Support tubes and lines are in good position. Lungs: Stable bilateral infiltrates. Pleural spaces: Unremarkable. No pleural effusion. No pneumothorax. Heart/Mediastinum: Unremarkable. No cardiomegaly. Bones/joints: Unremarkable. XR/XR chest 1V portable [id number] IMPRESSION: 1. Stable bilateral infiltrates. 2. Support tubes and lines are in good position.
--- NOTE | 2020-12-17 06:05 | PC.NURSE ---
Addendum entered by Hillary Alexander RN 12/17/20 06:07: Witnessed Waste of fentanyl Original Note: Wasted 35.458 of fentanyl at 0553 with Hillary.
[2020-12-17 06:10] LABS: Slide Review Slide Review Perform
[2020-12-17 06:11] LABS: White Blood Count 57.7 10^3/uL (4.0-10.0)
[2020-12-17 06:16] LABS: Alanine Aminotransferase < 5 U/L (0-33); Aspartate Amino Transferase 90 U/L (0-32)
[2020-12-17 07:27] LABS: Anion Gap 20.4 (5-19)
[2020-12-17 07:28] LABS: Potassium 3.4 mmol/L (3.5-5.1)
[2020-12-17 07:29] LABS: Blood Urea Nitrogen 88 mg/dL (8-23)
[2020-12-17] MEDS: sodium chloride 0.9% 1,000 ML 75 ML IV ×2 (08:43→16:22)
[2020-12-17] MEDS: amlodipine 10 mg Tablet PO (08:44)
[2020-12-17] MEDS: polyethylene glycol 3350 Pkt 17 gm PO (08:44)
[2020-12-17] MEDS: metoprolol tartrate 25 mg Tablet 50 MG PO ×2 (08:44→21:42)
[2020-12-17] MEDS: ascorbic acid 500 mg Tablet PO ×2 (08:44→18:29)
[2020-12-17] MEDS: zinc gluconate 50 mg Tablet PO (08:44)
[2020-12-17] MEDS: budesonide 0.5 mg/2 mL Neb INHALATION ×2 (08:45→20:22)
[2020-12-17] MEDS: insulin glargine 100 units/1 mL 30 UNIT SUBCUT ×2 (08:47→21:42)
[2020-12-17 09:12] LABS: Glucose Point of Care 137 mg/dL (70-110)
--- NOTE | 2020-12-17 10:16 | PC.NURSE ---
[facility] assessment complete. baseline numbers: HR 95 CI 2.6 SVI 27 After PLR HR 97 CI 2.6 SVI 26 Svi change 0.4%.....not fluid responsive Dr. Reinoso on the unit and updated with results
[2020-12-17] MEDS: enoxaparin 100 mg/mL Syringe SUBCUT ×2 (11:15→22:09)
[2020-12-17] MEDS: pantoprazole 40 mg SDV IVP ×2 (11:15→21:45)
[2020-12-17] MEDS: potassium chloride oral liq 20 mEq/15 mL UDC 40 MEQ PO (11:15)
[2020-12-17] MEDS: albumin 12.5 GM/50 ML VIAL IV (11:15)
[2020-12-17] MEDS: sucralfate 1 gm/10 mL Oral Liq UDC PO ×2 (11:15→21:45)
[2020-12-17] MEDS: nystatin powder 15 gm Btl 1 APPLIC TOPICAL ×2 (11:18→18:40)
[2020-12-17] MEDS: mupirocin oint 22 gm 1 APPLIC TOPICAL ×2 (11:18→18:40)
[2020-12-17 12:33] LABS: Glucose Point of Care 124 mg/dL (70-110)
[2020-12-17] MEDS: vancomycin 1,500 MG/300 ML PIGGYBACK 200 MG IV (13:00)
[2020-12-17 15:27] LABS: LAB Peripheral Smear Sent for Review
--- NOTE | 2020-12-17 17:56 | XRR_ITS ---
PROCEDURE INFORMATION: Exam: XR Chest Exam date and time: 12/17/2020 5:56 PM Age: 70 years old Clinical indication: Device placement; Picc; Additional info: Picc line placement TECHNIQUE: Imaging protocol: XR of the chest. Views: 1 view. COMPARISON: 1. CR (CHEST, ) 12/17/2020 5:[address] angio chest w abd pel w con 12/17/2020 3:28:51 AM FINDINGS: Tubes, catheters and devices: Endotracheal tube tip located approximately 2.5 cm cephalad to the lashay. New right upper extremity PICC with tip overlying the distal SVC. Right IJ central line tip overlies the right atrium. Enteric tube tip extends off the inferior margin of the radiograph reaching at least the GE junction. Lungs: There are again patchy ground-glass opacities throughout the lungs with more confluent opacity at the left lung base. Pleural spaces: Small left pleural effusion again noted. No pneumothorax. Heart/Mediastinum: Unremarkable. No cardiomegaly. Bones/joints: No acute bony abnormality. Other findings: Patient rotated to the right. XR/XR chest 1V portable [id number] IMPRESSION: 1. New right upper extremity PICC with tip overlying the distal SVC. Lines and tubes otherwise unchanged. 2. No significant interval change diffuse ground-glass opacities in the setting of COVID pneumonia.
[2020-12-17 18:03] LABS: Glucose Point of Care 77 mg/dL (70-110)
--- NOTE | 2020-12-17 18:29 | PC.NURSE ---
Triple lumen PICC RIGHT arm ready for use.
[2020-12-17] MEDS: propofol 1,000 MG/100 ML INJ 15.65 MG IV (18:43)
--- NOTE | 2020-12-17 19:27 | NUR.SHIFT ---
Shift Note Frequent safety and comfort rounds continue. Orders and/or nursing care completed as indicated. Patient monitored for response to intervention and treatment(s).Updated son Thomas around noon. Attempted to reach out to Thomas and the to obtain consent for PICC insertion. Messages left. no return phone call made. Son Antoine at bedside discussed PICC line with him as well as phone conversation with sister Izabela. PICC line inserted. Will remove central line after confirmation. Blood pressure levels dropped during this shift. IV Fluid bolus of 500 ml given. IVF left at 75 ml/hr. Will continue to monitor.
--- NOTE | 2020-12-17 19:45 | P.PN_ITS ---
Subjective Subjective: Interval history: No acute events overnight. Remains on vent, 80% FIo2 saturating 92%, worsening leukocytosis and BUN on labs. Underwent Bronch yesterday and was found to have turbid and pus looking discharge which was sent over to lab for further results which i am told today were not received in labs and samples are ??lost. Documented urine output in last 24 hrs 1750 cc. Has remained hemodynamically stable. Stoddard Catheter changed yesterday. Central line changed to PICC line today. Medications: Reviewed: Yes Vitals/I&O/Wt Last Vital Signs Temp 98.8 F 12/17/20 08:00 Pulse 96 12/17/20 18:00 Resp 23 H 12/17/20 18:08 BP 88/51 12/17/20 18:00 Pulse Ox 89 L 12/17/20 18:08 12/17/20 12/17/20 12/17/20 06:59 14:59 22:59 Intake Total 551.667 / 1914.542 529.105 / 529.105 955.178 / 1484.283 Output Total 650 / 1750 525 / 525 Balance -98.333 / 164.542 529.105 / 529.105 430.178 / 959.283 Weight last 48 hrs Weight 94.982 kg Weight 94.801 kg Physical Exam Narrative: EXAM NARRATIVE: General: Intubated, sedated HEENT: PERRLA, pupils bilaterally equal and reactive Chest: Bilateral bronchial breath sounds, coarse crackles present all over the lung gamboa bilaterally anterior more than posterior,, equal good air entry bilaterally CVS: S1-S2 regular, no murmurs,tachycardia, no gallops, no rubs Abdomen: Soft, nontender, no organomegaly, bowel sounds present Neuro: Intubated, sedated Urinary Catheter Management^: Stoddard: Cath Placed During This Visit: yes Reason for Continuing Indwelling Catheter: Accurate Measurement of Urinary Output in Critically Ill Patients Urinary Catheter Date of Insertion: 12/16/20 Urinary Catheter Time of Insertion: 19:30 Data : 12/17/20 05:00 12/17/20 05:00 Micro: Microbiology 12/15/20 11:00 Stool Lactoferrin - Final Stool Enteric Pathogens (PCR) - Final Parasite Antigen Panel - Final C.difficile Toxin B Gene (PCR) - Final Occult Blood (FIT) - Final 12/16/20 19:25 Blood Culture - Preliminary Blood SPECIMEN COLLECTED 12/16/20 19:25 Blood Culture - Preliminary Blood SPECIMEN COLLECTED Microbiology 12/16/20 19:25 Blood Blood Culture - Preliminary NEGATIVE TO DATE 12/16/20 19:25 Blood Blood Culture - Preliminary NEGATIVE TO DATE 12/15/20 11:00 Stool Stool Lactoferrin - Final 12/15/20 11:00 Stool Enteric Pathogens (PCR) - Final 12/15/20 11:00 Stool Parasite Antigen Panel - Final 12/15/20 11:00 Stool C.difficile Toxin B Gene (PCR) - Final 12/15/20 11:00 Stool Occult Blood (FIT) - Final 12/12/20 12:22 Nose MRSA Culture - Final 12/12/20 12:40 Urine Catheterized Legionella Urinary Antigen - Final 12/12/20 12:40 Urine Kidney Bacterial Antigens - Final 12/08/20 17:20 Sputum - Endotracheal Tube Aspirate Gram Stain - Final 12/08/20 17:20 Sputum - Endotracheal Tube Aspirate Sputum Culture - Final Pseudomonas aeruginosa 12/05/20 15:55 Blood Blood Culture - Final NO GROWTH AFTER 5 DAYS 12/05/20 15:50 Blood Blood Culture - Final NO GROWTH AFTER 5 DAYS 12/07/20 13:57 Urine,Clean Catch Urine Culture - Final 12/05/20 16:45 Sputum - Endotracheal Tube Aspirate Gram Stain - Final 12/05/20 16:45 Sputum - Endotracheal Tube Aspirate Sputum Culture - Final Pseudomonas aeruginosa A&P Assessment and plan (1) ARDS (adult respiratory distress syndrome): Status: Acute (2) Acute respiratory failure due to COVID-19: Status: Acute (3) Pseudomonas pneumonia: Status: Acute (4) Diabetes: Status: Acute (5) Hypertension: Status: Acute (6) Hypernatremia: Status: Acute (7) Acidosis: Status: Acute Additional A&P Information Acute Respiratory Distress Syndrome due to COVID-19 Pneumonia and Secondary bacterial Pseudomonas pneumonia: Post proning sessions. Continue sedation fentanyl and propofol Patient has finished course of remdesivir. Dexamethasone 6 mg IV daily. Stopped on 12/16. Continue monitor inflammatory markers including CRP, ESR, D-dimer every 48 hourly. For now ESR and CRP has remained low stable. ESR 19, CRP around 8 for last 4 days. Patient requiring high oxygen supplementation and D-dimer elevated for now start patient on full dose Lovenox with 1 mg/kg body weight every 12 hourly. Will monitor for anemia, blood loss. Sputum culture growing Pseudomonas. Blood cultures so far remain negative. Urine Legionella, bacterial antigen negative. Leukocytosis while worsening--- Septic work up repeated. Repeat Bcx, UA, UCx sent on 12/16. Stoddard catheter changed on 12/16. Central line changed to PICC line on 12/17. CT ankle negative for osteo. Repeat CT abd/Pelvis and Abd today. C/w Imipenem, Vanc, Levoflox. Bronch consistent with purulent collection. Samples lost so can not get Cx. C/w Voriconazole to cover for fungal infection. Appreciate neighborhood worker recs Given ARDS we will try to keep patient as net negative as possible. Patient's BUN worsening. For now hold off on any further diuresis. Gentle Hydration with NS @ 50 cc/hr Strict input output charting, daily weights. Echocardiogram done shows an EF of 65 to 70% with grade 2 diastolic dysfunction, RVSP of 24 mmHg without valvular abnormality. Hypernatremia: Resolved. Continue with free water flushes at 100 cc every 6 hour. Monitor BMP again in the evening. Diabetes Mellitus: Blood sugars better today. Lantus 30 units twice daily. Insulin sliding scale high-dose protocol q. 4 hourly. HTN: Goal blood pressure less than 140/90 mmHg. Continue with metoprolol 25 mg twice daily. Stop Amlo 10 mg. FEN Tube feedings. Glucerna at 35 cc/h, free water flushes to 100 every 6 hours. Target tube feedings around 50 cc/h. GI ppx Pepcid 20 mg IV BID Full dose Lovenox will help with DVT prophylaxis as well. Severely guarded prognosis. Patient's care discussed in detail with son over the phone who requested to talk to patient's Mr. Elkins. Spoke with Mr. Elkins on [phone]. he is the designated healthcare proxy along with son. We discussed that unfortunately patient has been intubated for around 9 days and is still requiring high oxygen supplementation up to 80% with worsening leukocytosis even though she is on broad-spectrum antibiotics as per the culture results. We discussed that patient currently being treated for COVID-19 pneumonia and superadded bacterial pneumonia. We also discussed worsening hypernatremia. Mr. Beltran states that patient was always a DNR/DNI and is not really sure why patient got intubated. For now he does not want any aggressive chest c ompressions if her heart stops. CODE STATUS change in the system. He states he would want to talk to patient's son in detail before making any further decision regarding goals of care. Plan for day: C/w broad spectrum Abx, Voriconazole. Infectious work up with [facility] CT. Gentle hydration. Change CVC to PICC line Attestations Medical Necessity Statement*: Requires further hospital acute respiratory distress syndrome, ventilator dependent secondary to COVID-19 and Pseudomonas pneumonia, sepsis Critical Care Time: The high probability of a clinically significant, sudden or life threatening deterioration of the patient's [Pulm, ID, Renal, Cardiac] system(s) required my full and direct attention, intervention and personal management. The critical care time is as shown. This time is in addition to time spent performing any reported procedures but includes the following: [x] Data and vital sign review and interpretation [x] Patient assessment, examination and intervention [x] Documentation [x] Medication orders and management Critical Care Time (min): 90 Coding Level of Care Code Acute Space Systems Operations Manager for [facility] Fwd Diagnoses ARDS (adult respiratory distress syndrome) J80 Acute respiratory failure due to COVID-19 U07.1; J96.00 Pseudomonas pneumonia J15.1 Diabetes E11.9 Hypertension I10 Hypernatremia E87.0 Acidosis E87.2
[2020-12-17 20:41] LABS: Glucose Point of Care 246 mg/dL (70-110)
[2020-12-18] VITALS (49 sets, daily range): BP systolic 81–125; BP diastolic 42–69; PULSE 67–114; RESP 24–42; TEMP 36.4–36.7; O2SAT 79–95; BMI 38.6
[2020-12-18] MEDS: propofol 1,000 MG/100 ML INJ 15.65 MG IV (00:28)
[2020-12-18 01:43] LABS: Glucose Point of Care 257 mg/dL (70-110)
[2020-12-18] MEDS: propofol 1,000 MG/100 ML INJ 31.3 MG IV ×3 (03:23→10:26)
[2020-12-18] MEDS: ipratropium-albuterol 3 mL Neb INHALATION ×4 (03:56→15:26)
[2020-12-18 04:48] LABS: Basophils # 0.1 10^3/uL (0.0-0.1); Basophils % 0.3 %; Eosinophils % 0.1 %; Hematocrit 23.3 % (37.0-47.0); Hemoglobin 8.1 g/dL (11.5-15.3); Lymphocytes % 6.2 %; Mean Corpuscular HGB Conc 34.8 g/dL (30.0-36.0); Mean Corpuscular Hemoglobin 31.6 pg (28.0-34.0); Mean Platelet Volume 13.4 fL (7.4-10.4); Monocytes # 3.3 10^3/uL (0.2-0.9); Monocytes % 6.9 %; Neutrophils # 37.63 10^3/uL (1.8-7.7); Nucleated Red Blood Cells # 1.1 /100WBC; Nucleated Red Blood Cells % 2.3 %; Platelet Count 142 10^3/cmm (130-400); Red Blood Count 2.56 10^6/uL (4.1-5.3); Red Cell Distribution Width 16.9 % (12.1-15.1)
[2020-12-18 04:53] LABS: Glucose Point of Care 203 mg/dL (70-110)
[2020-12-18 05:26] LABS: Albumin Level 2.2 g/dL (3.5-5.2); Alkaline Phosphatase 169 IU/L (35-105); Calcium 7.3 mg/dL (8.5-10.5); Carbon Dioxide 22 mmol/L (22-29); Chloride 98 mmol/L (98-107); Globulin 1.3 g/dL (1.3-4.6); Glucose 168 mg/dL (65-115); Osmolality Calculated 320 mOsm/kg (285-295); Sodium 138 mmol/L (136-145); Total Bilirubin 1.3 mg/dL (0.15-1.2); Total Protein 3.5 g/dL (6.6-8.7)
[2020-12-18 05:48] LABS: Alanine Aminotransferase < 5 U/L (0-33); Aspartate Amino Transferase 70 U/L (0-32)
[2020-12-18 05:49] LABS: Slide Review Slide Review Perform
[2020-12-18 05:50] LABS: White Blood Count 47.6 10^3/uL (4.0-10.0)
[2020-12-18 05:59] LABS: C Reactive Protein 8.5 mg/L (0.0-4.9)
[2020-12-18 06:22] LABS: Erythrocyte Sedimentation Rate 22 mm/hr (0-15)
[2020-12-18 07:37] LABS: Glucose Point of Care 174 mg/dL (70-110)
[2020-12-18 08:00] LABS: Anion Gap 21.3 (5-19); Blood Urea Nitrogen 97 mg/dL (8-23); Potassium 3.3 mmol/L (3.5-5.1)
[2020-12-18] MEDS: budesonide 0.5 mg/2 mL Neb INHALATION (08:09)
[2020-12-18] MEDS: vancomycin 1,500 MG/300 ML PIGGYBACK 300 MG IV (08:12)
[2020-12-18] MEDS: metoprolol tartrate 25 mg Tablet 50 MG PO (09:18)
[2020-12-18] MEDS: insulin glargine 100 units/1 mL 30 UNIT SUBCUT (09:18)
[2020-12-18] MEDS: zinc gluconate 50 mg Tablet PO (09:19)
[2020-12-18] MEDS: ascorbic acid 500 mg Tablet PO (09:19)
--- NOTE | 2020-12-18 09:21 | PC.SOCIAL ---
IMM Not Updated Pg. 2 of IMM not updated at this time. Patient not anticipated to discharge within the next 48hours.
[2020-12-18] MEDS: mupirocin oint 22 gm 1 APPLIC TOPICAL ×2 (09:25→17:48)
[2020-12-18] MEDS: nystatin powder 15 gm Btl 1 APPLIC TOPICAL ×2 (09:25→17:48)
[2020-12-18 10:14] LABS: Lactate Dehydrogenase 1498 U/L (135-214)
[2020-12-18] MEDS: sucralfate 1 gm/10 mL Oral Liq UDC PO (11:08)
[2020-12-18] MEDS: pantoprazole 40 mg SDV IVP (11:08)
[2020-12-18] MEDS: enoxaparin 100 mg/mL Syringe SUBCUT (11:08)
--- NOTE | 2020-12-18 12:00 | PC.NURSE ---
sedation decreased at this time vacation sedation and noted blood pressure decreasing and o2 sat decreasing Dr [place]
--- NOTE | 2020-12-18 13:34 | XRR_ITS ---
PROCEDURE INFORMATION: Exam: XR Chest Exam date and time: 12/18/2020 1:34 PM Age: 70 years old Clinical indication: Shortness of breath. Change in condition. TECHNIQUE: Imaging protocol: XR of the chest. Views: 1 view. COMPARISON: CR (CHEST, ) 12/17/2020 6:03 PM FINDINGS: Tubes, catheters and devices: Endotracheal tube with tip approximately 0.8 cm above the lashay; recommend withdrawal by approximately 1-2 cm. Right PICC with tip in the SVC. Nasogastric tube projects into the abdomen. Its tip is not included on the current study. Lungs: There is worsened left basilar/retrocardiac opacity likely reflecting consolidation and effusion. There are patchy hazy opacities throughout the remainder of the chest that appear slightly worsened on the right. Pleural spaces: No pneumothorax. Heart/Mediastinum: The cardiac silhouette is unchanged. No gross evidence of pneumomediastinum. Bones/joints: No gross fracture. XR/XR chest 1V portable 13580 IMPRESSION: 1. Endotracheal tube with tip approximately 0.8 cm above the lashay; recommend withdrawal by approximately 1-2 cm. 2. There is worsened left basilar/retrocardiac opacity likely reflecting consolidation and effusion. There are patchy hazy opacities throughout the remainder of the chest that appear slightly worsened on the right.
[2020-12-18] MEDS: FUROsemide 10 mg/mL SDV 4mL 40 MG IVP (13:38)
[2020-12-18 13:43] LABS: ABG PCO2 32.2 mmHg (35-45); ABG PH Result 7.45 (7.35-7.45); Alveolar-Arterial Oxygen Gradi 81.2 mmHg (5-10); Base Excess ABG -1.4 mmol/L (-2.0-2.0); Blood Gas Allen Test Pos; Blood Gas Operator Identificat CAK; Blood Gas Sample Site Radial, left; Blood Gas Sample Type Arterial; Carboxyhemoglobin 1.8 %THgb (0.4-20.1); HCO3 ABG 22.3 mmol/L (22-26); HGB O2 Sat 80.5 % (95-100); Ionized Calcium Level - ABG 1.1 mmol/L (1.1-1.4); Methemoglobin 2.3 % (0.4-1.5); Oxygen Device VENT; PO2 ABG 50.5 mmHg (80.0-100.0); Potassium Level - ABG 3.5 mmol/L (3.5-5.0); Total Hemoglobin 8.2 g/dL (12-16)
[2020-12-18 13:56] LABS: Glucose Point of Care 182 mg/dL (70-110)
--- NOTE | 2020-12-18 14:39 | PC.NURSE ---
lasix given and fio2 increased to 100 at this time oral care done and started on levophed prior low dose maintain blood pressure .. increasing sedation to assist with respiratory status
--- NOTE | 2020-12-18 15:08 | PC.NURSE ---
increasing levophed and sedation o2 sat 80 positioned on side with increase to 84%
[2020-12-18 15:48] LABS: Hematocrit 22.9 % (37.0-47.0); Hemoglobin 8.1 g/dL (11.5-15.3)
[2020-12-18 17:42] LABS: Glucose Point of Care 185 mg/dL (70-110)
[2020-12-18] MEDS: propofol 1,000 MG/100 ML INJ 12.52 MG IV (17:45)
--- NOTE | 2020-12-18 18:48 | NUR.SHIFT ---
Shift Note Frequent safety and comfort rounds continue. Orders and/or nursing care completed as indicated. Patient monitored for response to intervention and treatment(s). Education provided includes[]. 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 Will continue to monitor. family here now transitioning out to comfort care .
--- NOTE | 2020-12-18 19:02 | PC.NURSE ---
extubated at this time family at bedside
--- NOTE | 2020-12-18 19:59 | PC.NURSE ---
I called [facility] at 1930, and the patient was declared to not be a candidate for any kind of donation. [facility] home was contacted and informed the facility that they have a vehicle headed to [place] now. Family was at the bedside at the beginning of shift, but has since left. The [facility] reference number is [id number].
--- NOTE | 2020-12-18 20:32 | PC.NURSE ---
Addendum entered by Anabell Chowdary RN 12/19/20 00:06: Witnessed waste. Original Note: 89.433 mL of the patient's Fentanyl drip was wasted with GEORGE Hung. 82.263 of propofol was wasted as well.
--- NOTE | 2020-12-18 21:44 | PM.DDS ---
Discharge Providers DDS Date of Admission: 12/05/20 22:16 Date Summary Completed: 12/18/20 Attending Provider at Admission: Dee Pedro MD Time of : 19:10 Attending Provider at Discharge: Ronny Reinoso MD Consults: Pulmonology: Dr. Stover Primary Care Provider: Maite Singh Diagnoses Hospital Diagnoses (1) ARDS (adult respiratory distress syndrome): (2) Acute respiratory failure due to COVID-19: (3) Pseudomonas pneumonia: (4) Diabetes: (5) Hypertension: (6) Hypernatremia: (7) Acidosis: Reason for Visit Reason for Visit: RESP DISTRESS, COVID Summary Date and Time of Date of : 12/18/20 Time of : 19:10 Summary Summary: Veronica Saucedo is a 69 year old female who was brought to the hospital on December 05 after being intubated by the EMS in the field. According to the documentation her oxygen saturation was in the 50s. She tested positive for COVID-19 likely on November 28. The patient underwent a CT angiogram of the chest which did not reveal any pulmonary embolism. The patient had diffuse bilateral opacities. She was admitted to the ICU and started on protocol treatment with remdesivir, IV dexamethasone and empiric antibiotics. Pulmonology was consulted and patient also underwent chronic sessions. Patient sputum culture came back positive for Pseudomonas for which she was started on sensitivity directed antibiotics. Patient's hospitalization was complicated by hyperglycemia for which she was started on insulin drip, hypernatremia which is managed by managing fluid status and her worsening leukocytosis, requiring pressors on and off. Patient's leukocytosis continues to worsen going as high as 58,000. Multiple infectious work-up including CT imaging, cultures came back negative. Patient underwent bronchoscopy on December 16 which showed thick puslike discharge in the lungs at that time her coverage was broadened and voriconazole was added. Unfortunately even after maximum treatment patient's oxygen requirements continue to remain high with her requiring pressors because of which goals of care discussion was done with patient's family including Mr. Elkins() and Mr. Guzman(son) who decided patient to have comfort care measures and terminal extubation. Patient was extubated with son at bedside at around 6:30 and patient at 7:10 PM. Additional Data Confirmation of as documented by pronouncing clinician: no pulse and no respirations Family: at bedside Additional persons at bedside: nursing staff Attending/PCP notified?: I am attending Was code activated?: No Autopsy requested?: No Advance directives?: No Hospice patient?: Yes Discharge Plan Discharge Patient Disposition: Condition: Stable Probable Cause of Probable cause of : COVID-19 DS Attestations Time Spent in /Discharge Care*: greater than 30 min Quality - AMI: AMI present?: No Quality - Stroke: CVA present?: No Quality - VTE: VTE present?: No Coding Level of Care Code Acute Junior Account Manager for g Fwd Diagnoses ARDS (adult respiratory distress syndrome) J80 Acute respiratory failure due to COVID-19 U07.1; J96.00 Pseudomonas pneumonia J15.1 Diabetes E11.9 Hypertension I10 Hypernatremia E87.0 Acidosis E87.2
== END 2020-12-18 22:00 | disposition expired | DRG 207 ==
LOC: ER 21:30 → ICU 22:06
PROVIDERS: Hospitalist; Internal Medicine Critical Care Medicine; Admitting Provider Internal Medicine; Emergency Provider Family Medicine; PCP Registered Nurse; Visit Provider Student in an Organized Health Care Education/Training Program
DX: U07.1 COVID-19 (principal); J12.82 Pneumonia due to coronavirus disease 2019; J80 Acute respiratory distress syndrome; J15.1 Pneumonia due to Pseudomonas; E87.2 Acidosis; E87.0 Hyperosmolality and hypernatremia; E11.65 Type 2 diabetes mellitus with hyperglycemia; E87.6 Hypokalemia; R00.0 Tachycardia, unspecified; I10 Essential (primary) hypertension; Z66 Do not resuscitate; M25.572 Pain in left ankle and joints of left foot; M25.571 Pain in right ankle and joints of right foot; Z51.5 Encounter for palliative care
CPT/HCPCS: 36415; 36416; 36569; 36592; 36600; 51702; 71045; 71275; 73600; 73700; 74177; 80048; 80051; 80053; 80500; 81001; 82009; 82274; 82330; 82550; 82728; 82803; 82805; 82962; 83036; 83540; 83550; 83605; 83615; 83630; 83735; 83880; 84100; 84145; 84443; 84484; 85007; 85014; 85018; 85025; 85378; 85384; 85610; 85651; 85730; 86140; 86403; 87040; 87070; 87077; 87086; 87102; 87186; 87205; 87206; 87426; 87449; 87493; 87506; 87635; 87641; 93306; 94002; 94003; 94640; 94799; 96365; 96366; 96367; 96372; 96375; 99291; C1751; C9113; J0360; J0456; J0696; J0743; J1100; J1650; J1815 ×2; J1940; J1956; J2020; J2250; J2270; J2543; J2704; J3010; J3262; J3370; J3465; J3480; J3490; J7030; J7040; J7050; J7626; P9047; Q9967